=== PATIENT | female | born 1945 | race Caucasian/White ===

== ENCOUNTER 2017-10-04 07:25 | Inpatient (IN) ==
--- NOTE | 2017-10-04 08:02 | Emergency Department Note ---
Disposition Clinical Impression: Symptomatic bradycardia, Generalized weakness, ESRD (end stage renal disease) CHF (congestive heart failure) Qualifiers: Heart failure type: unspecified Heart failure chronicity: unspecified Qualified Code(s): I50.9 - Heart failure, unspecified Disposition: Admitted As Inpatient Referrals: Aurelio Fong DO [Primary Care Provider] - Forms: ED Satisfaction Letter Time of Disposition: 10:50 General Adult HPI - General Chief complaint: ED Weakness Stated complaint: Low B/P,Low HR Time Seen by Provider: 10/04/17 07:30 Source: patient, family Mode of arrival: wheelchair Limitations: no limitations Nursing Notes Reviewed: Yes Vital Signs Reviewed: Yes - History of Present Illness HPI Narrative: Alert and oriented nontoxic-appearing 71-year-old female is sent from dialysis for evaluation of hypotension and bradycardia. According to the patient and her family members, the patient's blood pressure was 90/52 and her heart rate was found to be 32 prior to being dialyzed. Dialysis was not performed, and the patient was sent to the emergency department. Her only complaint at the time of her arrival is that of generalized weakness that has worsened over the past several days. She denies any associated fever, chills, nausea, vomiting, chest pain, shortness of breath, abdominal pain, diarrhea, cough, or urinary symptoms. She denies being on any beta blockers, as she is allergic to them, or any current antihypertensive medication, as her blood pressure was "running low while taking those medications". She did have a recent discovery of a clot in her left arm dialysis shunt. She states that she was taken off Plavix sometime ago however after the discovery of the clot in her shunt, she was started on Xarelto. She states she is only taken 2 doses of Xarelto thus far. 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 Denies: confusion, chest pain, cough, fever/chills, nausea/vomiting, shortness of breath - Related Data Home Medications Medication Instructions Recorded Confirmed Rivaroxaban [Xarelto] 20 mg PO DAILY 10/04/17 10/04/17 Allergies Allergy/AdvReac Type Severity Reaction Status Date / Time adhesive Allergy Rash Verified 10/04/17 08:42 Beta-Blockers Allergy Hallucinati Verified 10/04/17 08:42 (Beta-Adrenergic Bloc ng metoprolol [From Toprol XL] Allergy Hallucinati Verified 10/04/17 08:42 ng lisinopril AdvReac Intermediate Hallucinati Verified 10/04/17 08:42 ng acetaminophen [From Percocet] AdvReac Nausea Verified 10/04/17 08:42 Oxycodone [From Percocet] AdvReac Nausea Verified 10/04/17 08:42 tramadol AdvReac Vomiting Verified 10/04/17 08:42 All systems ED: reviewed and negative except as stated. Constitutional: Reports: as per HPI, weakness (Generalized). Denies: fever, chills, weight change Eyes: Denies: eye pain, eye discharge, vision change ENT ED: Denies: ear pain, throat pain, dental pain, hearing loss, epistaxis, congestion, dysphagia Cardiovascular: Reports: as per HPI, other (Hypotension, bradycardia). Denies: chest pain, palpitations, dyspnea on exertion, edema, syncope Respiratory: Denies: cough, dyspnea, wheezes, hemoptysis, stridor Gastrointestinal: Denies: abdominal pain, nausea, vomiting, diarrhea, constipation, hematemesis, melena, hematochezia Genitourinary: Denies: dysuria, frequency, hematuria, discharge Musculoskeletal: Denies: back pain, neck pain, arthralgia, myalgia Integumentary: Denies: rash, abrasion, lesions Neurological: Denies: headache, weakness, numbness, paresthesias, confusion, abnormal gait, vertigo Psychiatric: Denies: anxiety, depression, suicidal thoughts, homicidal thoughts , auditory hallucinations, visual hallucinations Endocrine: Denies: fatigue Hematological/Lymphatic: Denies: easy bleeding, easy bruising Allergic/Immunologic: Denies: facial swelling, urticaria Past Medical History - Past Medical History Attestation: Yes The following information was validated with the patient. Source: patient, obtained from family, nursing notes reviewed Medical history: Reports: CVA, diabetes, dialysis, hyperlipidemia, hypertension , renal disease Surgical history: Reports: cholecystectomy Psychiatric history: Reports: no psych history DELI DEPARTMENT MANAGER history: Reports: no DELI DEPARTMENT MANAGER history - Social History Smoking Status: Never smoker Smokeless Tobacco Status: No Alcohol use: Reports: none Drug use: Reports: none Physical Exam - General Limitations: no limitations General appearance: alert, in no apparent distress - Head Head exam: atraumatic, normocephalic, normal inspection - Eye Eye exam: Present: normal appearance, PERRL, EOMI. Absent: nystagmus - ENT ENT exam: mucous membranes moist - Neck Neck exam: Present: normal inspection, full ROM, trachea midline - Chest Chest inspection: Present: normal inspection, symmetric chest wall rise - Respiratory Respiratory exam: Present: normal lung sounds bilaterally. Absent: respiratory distress, wheezes, stridor, accessory muscle use, prolonged expiratory phase - Cardiovascular Cardiovascular exam: Present: normal rhythm, bradycardia, normal heart sounds - Abdominal Exam Abdominal exam: Present: soft, Non-Tender, normal bowel sounds. Absent: mass - Extremities Exam Extremities exam: Present: normal inspection, full ROM. Absent: tenderness, pedal edema - Neurological Exam Neurological exam: Present: alert, oriented X3 - Psychiatric Psychiatric exam: Present: normal affect, normal mood - Skin Skin exam: Present: warm, dry, intact, normal color. Absent: rash Course Course Narrative: 1000: I spoke with Dr. Mendoza, wind farm support specialist fashion artist. Dr. Mendoza recommends admission to the hospital service with cardiology consultation for further intervention/evaluation. I discussed this plan with Dr. Fuller. Dr. Fuller has had a [id number] evaluation with the patient and agrees with this plan. 1050: I spoke with Dr. Andrade, hospitalist on-call who has accepted the patient for permission to the hospital service for further evaluation and treatment. Dr. Andrade does recommend a 500 mL bolus of IV fluid for the patient's labile blood pressure. Vital Signs Temperature 98.2 F 10/04/17 07:58 Pulse Rate 44 10/04/17 07:58 Respiratory Rate 18 10/04/17 07:58 Blood Pressure 99/63 10/04/17 07:58 O2 Sat by Pulse Oximetry 90 10/04/17 07:58 Temperature 98.2 F 10/04/17 07:58 Pulse Rate 42 10/04/17 10:33 Respiratory Rate 18 10/04/17 10:33 Blood Pressure 92/54 10/04/17 10:33 O2 Sat by Pulse Oximetry 92 10/04/17 10:33 Oxygen Delivery Oxygen Delivery Nasal Cannula Medical Decision Making - Medical Records Medical records reviewed: Yes I reviewed the patient's medical records. - Lab Data Lab results reviewed: Yes I reviewed the patient's lab results. Result diagrams: 10/04/17 08:11 10/04/17 08:11 Lab Results 10/04/17 10/04/17 10/04/17 Range/Units 08:11 08:11 08:11 WBC 9.0 (4.3-11.1) K/mcL RBC 3.61 L (3.82-4.97) M/mcL Hgb 10.6 L (11.5-15.4) g/dL Hct 34.7 L (35.3-44.9) % MCV 96.1 (83.0-100.0) fL MCH 29.4 (28.0-33.3) pg MCHC 30.5 L (31.6-35.5) g/dL RDW 17.4 H (11.5-14.5) % Plt Count 274 (140-400) K/mcL MPV 10.7 (9.4-12.4) fL Immature Gran % 0.4 (0-4) % Seg Neutrophils % 72.7 % Lymphocytes % 19.2 % Monocytes % 6.1 % Eosinophils % 1.0 % Basophils % 0.6 % Neutrophils # 6.5 (1.6-8.9) K/mcL Lymphocytes # 1.7 (0.6-4.6) K/mcL Monocytes # 0.6 (0.0-1.3) K/mcL Eosinophils # 0.1 (0.0-0.6) K/mcL Basophils # 0.1 (0.0-0.2) K/mcL PT 18.2 H D (9.4-12.1) Seconds INR 1.7 D Sodium 136 (136-145) mEq/L Potassium 4.8 (3.5-5.1) mEq/L Chloride 92 L (98-107) mEq/L Carbon Dioxide 29 (23-29) mEq/L BUN 43 H (8-23) mg/dL Creatinine 7.47 H (0.60-1.20) mg/dL Est GFR ( Amer) 7 L (> 60) Est GFR (Non-Af Amer) 5 L (> 60) BUN/Creatinine Ratio 6 (6-26) Glucose 190 H (70-105) mg/dL Calculated Osmolality 298 (280-300) Lactic Acid (0.5-2.2) mmol/L Calcium 9.5 (8.6-10.3) mg/dL Venous Ioniz Calcium (1.15-1.35) mmol/L Phosphorus 7.3 H (2.7-4.5) mg/dL Magnesium 2.2 (1.6-2.6) mg/dL Total Bilirubin 0.5 (0.3-1.0) mg/dL AST 9 L (13-39) Units/L ALT < 3 L (7-52) Units/L Alkaline Phosphatase 120 H (34-104) Units/L Troponin I 0.14 H* (< 0.04) ng/mL B-Natriuretic Peptide (Less than 100) pg/mL Serum Total Protein 7.4 (6.4-8.9) g/dL Albumin 3.6 (3.5-5.7) g/dL Globulin 3.8 H (2.4-3.5) g/dL Albumin/Globulin Ratio 0.9 L (1.1-2.2) 10/04/17 10/04/17 10/04/17 Range/Units 08:11 08:11 08:20 WBC (4.3-11.1) K/mcL RBC (3.82-4.97) M/mcL Hgb (11.5-15.4) g/dL Hct (35.3-44.9) % MCV (83.0-100.0) fL MCH (28.0-33.3) pg MCHC (31.6-35.5) g/dL RDW (11.5-14.5) % Plt Count (140-400) K/mcL MPV (9.4-12.4) fL Immature Gran % (0-4) % Seg Neutrophils % % Lymphocytes % % Monocytes % % Eosinophils % % Basophils % % Neutrophils # (1.6-8.9) K/mcL Lymphocytes # (0.6-4.6) K/mcL Monocytes # (0.0-1.3) K/mcL Eosinophils # (0.0-0.6) K/mcL Basophils # (0.0-0.2) K/mcL PT (9.4-12.1) Seconds INR Sodium (136-145) mEq/L Potassium (3.5-5.1) mEq/L Chloride (98-107) mEq/L Carbon Dioxide (23-29) mEq/L BUN (8-23) mg/dL Creatinine (0.60-1.20) mg/dL Est GFR ( Amer) (> 60) Est GFR (Non-Af Amer) (> 60) BUN/Creatinine Ratio (6-26) Glucose (70-105) mg/dL Calculated Osmolality (280-300) Lactic Acid 2.2 (0.5-2.2) mmol/L Calcium (8.6-10.3) mg/dL Venous Ioniz Calcium 1.02 L (1.15-1.35) mmol/L Phosphorus (2.7-4.5) mg/dL Magnesium (1.6-2.6) mg/dL Total Bilirubin (0.3-1.0) mg/dL AST (13-39) Units/L ALT (7-52) Units/L Alkaline Phosphatase (34-104) Units/L Troponin I (< 0.04) ng/mL B-Natriuretic Peptide 4069 H (Less than 100) pg/mL Serum Total Protein (6.4-8.9) g/dL Albumin (3.5-5.7) g/dL Globulin (2.4-3.5) g/dL Albumin/Globulin Ratio (1.1-2.2) - Radiology Data Radiology results reviewed: Yes I reviewed the patient's radiology results. - EKG Data EKG #1 EKG attestation: Yes I reviewed and interpreted this EKG. EKG results narrative: eKG shows sinus bradycardia with a 1st degree AV block and with left bundle branch block at a rate of 40 bpm. PA interval 279, QRS duration 142, QT/QTc interval 482/414.
[2017-10-04] MEDS ORDERED: *HR* Atropine Sulfate 1 MG/10 ML SYRINGE IVP STA (08:17)
[2017-10-04] MEDS ORDERED: 0.9 % Sodium Chloride 1,000 ML IVC ONE (08:17)
[2017-10-04] MEDS ORDERED: 0.9 % Sodium Chloride 1,000 ML ONE (08:19)
[2017-10-04] MEDS ORDERED: *HR* Atropine Sulfate 1 MG/10 ML SYRINGE ONE (08:19)
[2017-10-04 08:20] LABS: Basophils # 0.1 K/mcL (0.0-0.2); Basophils % 0.6 %; Eosinophils # 0.1 K/mcL (0.0-0.6); Hematocrit 34.7 % (35.3-44.9); Hemoglobin 10.6 g/dL (11.5-15.4); Immature Granulocytes % 0.4 % (0-4); Lymphocytes # 1.7 K/mcL (0.6-4.6); Lymphocytes % 19.2 %; Mean Corpuscular HGB Conc 30.5 g/dL (31.6-35.5); Mean Corpuscular Hemoglobin 29.4 pg (28.0-33.3); Mean Corpuscular Volume 96.1 fL (83.0-100.0); Mean Platelet Volume 10.7 fL (9.4-12.4); Monocytes # 0.6 K/mcL (0.0-1.3); Monocytes % 6.1 %; Neutrophils # 6.5 K/mcL (1.6-8.9); Platelet Count 274 K/mcL (140-400); Red Blood Count 3.61 M/mcL (3.82-4.97); Red Cell Distribution Width 17.4 % (11.5-14.5); Segmented Neutrophils % 72.7 %
[2017-10-04 08:24] LABS: VBG Ionized Calcium 1.02 mmol/L (1.15-1.35)
[2017-10-04 08:25] LABS: INR 1.7; Prothrombin Time 18.2 Seconds (9.4-12.1)
--- NOTE | 2017-10-04 08:39 | Emergency Department Note ---
Disposition Clinical Impression: Symptomatic bradycardia Disposition: Still a Patient Referrals: Aurelio Fong DO [Primary Care Provider] - Forms: ED Satisfaction Letter General Adult HPI - General Chief complaint: ED Weakness Stated complaint: Low B/P,Low HR Time Seen by Provider: 10/04/17 07:30 Source: patient, family Mode of arrival: wheelchair Limitations: no limitations - History of Present Illness Pain Scale: 0 Associated symptoms: Reports: weakness (Generalized). Denies: confusion, chest pain, cough, fever/chills, nausea/vomiting, shortness of breath - Related Data Home Medications Medication Instructions Recorded Confirmed Cinacalcet HCl [Sensipar] 60 mg PO DAILY 01/31/15 02/10/16 CloNIDine HCl 0.1 mg PO HS 01/31/15 02/10/16 Rosuvastatin [Crestor] 40 mg PO HS 01/31/15 02/10/16 Amlodipine [Norvasc] 5 mg PO DAILY 05/17/15 02/10/16 Clopidogrel [Plavix] 75 mg PO DAILY #0 09/26/15 02/10/16 Acetaminophen [Tylenol] 325 mg PO Q6HR PRN 01/03/16 02/10/16 Insulin Glargine [Lantus] 15 unit SQ HS 01/03/16 02/10/16 Ondansetron ODT [Zofran ODT] 4 mg SL Q12HR PRN 01/03/16 02/10/16 Previous Rx's Medication Instructions Recorded HYDROcodone/Acet 5/325 mg [[place] 1 tab PO Q4H PRN #30 tab 01/05/16 5-325 mg] Allergies Allergy/AdvReac Type Severity Reaction Status Date / Time adhesive Allergy Rash Verified 02/10/16 07:37 Beta-Blockers Allergy Hallucinati Verified 02/10/16 07:37 (Beta-Adrenergic Bloc ng metoprolol [From Toprol XL] Allergy Hallucinati Verified 02/10/16 07:37 ng lisinopril AdvReac Intermediate Hallucinati Verified 02/10/16 07:37 ng acetaminophen [From Percocet] AdvReac Nausea Verified 02/10/16 07:37 Oxycodone [From Percocet] AdvReac Nausea Verified 02/10/16 07:37 tramadol AdvReac Vomiting Verified 01/03/16 11:33 Constitutional: Reports: as per HPI, weakness (Generalized). Denies: fever, chills, weight change Eyes: Denies: eye pain, eye discharge, vision change ENT ED: Denies: ear pain, throat pain, dental pain, hearing loss, epistaxis, congestion, dysphagia Cardiovascular: Reports: as per HPI, other (Hypotension, bradycardia). Denies: chest pain, palpitations, dyspnea on exertion, edema, syncope Respiratory: Denies: cough, dyspnea, wheezes, hemoptysis, stridor Gastrointestinal: Denies: abdominal pain, nausea, vomiting, diarrhea, constipation, hematemesis, melena, hematochezia Genitourinary: Denies: dysuria, frequency, hematuria, discharge Musculoskeletal: Denies: back pain, neck pain, arthralgia, myalgia Integumentary: Denies: rash, abrasion, lesions Neurological: Denies: headache, weakness, numbness, paresthesias, confusion, abnormal gait, vertigo Psychiatric: Denies: anxiety, depression, suicidal thoughts, homicidal thoughts , auditory hallucinations, visual hallucinations Endocrine: Denies: fatigue Hematological/Lymphatic: Denies: easy bleeding, easy bruising Allergic/Immunologic: Denies: facial swelling, urticaria Past Medical History - Past Medical History Medical history: Reports: CVA, diabetes, dialysis, hyperlipidemia, hypertension , renal disease Surgical history: Reports: cholecystectomy Psychiatric history: Reports: no psych history SHOPPING CENTRE MANAGER history: Reports: no SHOPPING CENTRE MANAGER history - Social History Smoking Status: Never smoker Smokeless Tobacco Status: No Alcohol use: Reports: none Drug use: Reports: none Physical Exam - General Limitations: no limitations General appearance: alert, in no apparent distress Course - Reevaluation(s) Reevaluation #1: Attestation note I examined this patient and my medical decision-making was reviewed with the emergency medicine resident. I agree with the documented findings, disposition and treatment plan as described except to the extent set forth below. Patient seen with nurse practitioner Wes Foreman, Please see a copy of his note for details of the H&P, ED evaluation, management and disposition. I have independently evaluated the patient and confirmed appropriate portions of the history and physical exam. Briefly: 71-year-old female end-stage renal disease dialysis dependent had her dialysis on for today Saturday was sleepy and they noticed she had low blood pressure systolic in the low 90s and heart rate into the mid 30s. Family but says that her heart rates been low over the past several weeks. Other prior EKG shows a heart rate was 89. She 41 here pacer pads in place. Patient will get screening labs chest x-ray cardiology consultation and admission. Patient says she is allergic to beta blockers. Providing 45 minutes critical care service for this patient. Admission disposition pending Time: 08:38 Vital Signs Temperature 98.2 F 10/04/17 07:58 Pulse Rate 44 10/04/17 07:58 Respiratory Rate 18 10/04/17 07:58 Blood Pressure 99/63 10/04/17 07:58 O2 Sat by Pulse Oximetry 90 10/04/17 07:58 Temperature 98.2 F 10/04/17 07:58 Pulse Rate 45 10/04/17 08:30 Respiratory Rate 18 10/04/17 08:30 Blood Pressure 99/56 10/04/17 08:30 O2 Sat by Pulse Oximetry 93 10/04/17 08:30 Oxygen Delivery Oxygen Delivery Nasal Cannula Medical Decision Making - Lab Data Result diagrams: 10/04/17 08:11 Lab Results 10/04/17 10/04/17 10/04/17 Range/Units 08:11 08:11 08:11 WBC 9.0 (4.3-11.1) K/mcL RBC 3.61 L (3.82-4.97) M/mcL Hgb 10.6 L (11.5-15.4) g/dL Hct 34.7 L (35.3-44.9) % MCV 96.1 (83.0-100.0) fL MCH 29.4 (28.0-33.3) pg MCHC 30.5 L (31.6-35.5) g/dL RDW 17.4 H (11.5-14.5) % Plt Count 274 (140-400) K/mcL MPV 10.7 (9.4-12.4) fL Immature Gran % 0.4 (0-4) % Seg Neutrophils % 72.7 % Lymphocytes % 19.2 % Monocytes % 6.1 % Eosinophils % 1.0 % Basophils % 0.6 % Neutrophils # 6.5 (1.6-8.9) K/mcL Lymphocytes # 1.7 (0.6-4.6) K/mcL Monocytes # 0.6 (0.0-1.3) K/mcL Eosinophils # 0.1 (0.0-0.6) K/mcL Basophils # 0.1 (0.0-0.2) K/mcL PT 18.2 H D (9.4-12.1) Seconds INR 1.7 D Lactic Acid 2.2 (0.5-2.2) mmol/L Venous Ioniz Calcium (1.15-1.35) mmol/L 10/04/17 Range/Units 08:20 WBC (4.3-11.1) K/mcL RBC (3.82-4.97) M/mcL Hgb (11.5-15.4) g/dL Hct (35.3-44.9) % MCV (83.0-100.0) fL MCH (28.0-33.3) pg MCHC (31.6-35.5) g/dL RDW (11.5-14.5) % Plt Count (140-400) K/mcL MPV (9.4-12.4) fL Immature Gran % (0-4) % Seg Neutrophils % % Lymphocytes % % Monocytes % % Eosinophils % % Basophils % % Neutrophils # (1.6-8.9) K/mcL Lymphocytes # (0.6-4.6) K/mcL Monocytes # (0.0-1.3) K/mcL Eosinophils # (0.0-0.6) K/mcL Basophils # (0.0-0.2) K/mcL PT (9.4-12.1) Seconds INR Lactic Acid (0.5-2.2) mmol/L Venous Ioniz Calcium 1.02 L (1.15-1.35) mmol/L
[2017-10-04 08:47] LABS: Alanine Aminotransferase < 3 Units/L (7-52); Albumin 3.6 g/dL (3.5-5.7); Albumin/Globulin Ratio 0.9 (1.1-2.2); Alkaline Phosphatase 120 Units/L (34-104); Aspartate Amino Transferase 9 Units/L (13-39); BUN/Creatinine Ratio 6 (6-26); Bilirubin,Total 0.5 mg/dL (0.3-1.0); Blood Urea Nitrogen 43 mg/dL (8-23); Calcium 9.5 mg/dL (8.6-10.3); Carbon Dioxide 29 mEq/L (23-29); Chloride 92 mEq/L (98-107); Globulin 3.8 g/dL (2.4-3.5); Glucose 190 mg/dL (70-105); Magnesium 2.2 mg/dL (1.6-2.6); Osmolality,Calculated 298 (280-300); Phosphorous 7.3 mg/dL (2.7-4.5); Potassium 4.8 mEq/L (3.5-5.1); Sodium 136 mEq/L (136-145); Total Protein 7.4 g/dL (6.4-8.9); eGFR For African Americans 7 (> 60); eGFR For Non-African Americans 5 (> 60)
[2017-10-04 09:24] LABS: Troponin I 0.14 ng/mL (< 0.04)
[2017-10-04] MEDS ORDERED: Aspirin 81 MG TAB.CHEW PO ONE (09:40)
[2017-10-04] MEDS ORDERED: 0.9 % Sodium Chloride 500 ML IVC ONE (10:51)
--- NOTE | 2017-10-04 11:34 | Internal Med History&Physical ---
Date of Encounter: 10/04/17 Time of Encounter: 11:34 Internal Medicine - H&P: HPI Admitted From: Home Plans for Post Hospital Care: Home History of present illness: Ms. Aguilar is a 71-year-old female with history of ESRD on maintenance dialysis Saturday, recent DVT on left upper extremity on Xarelto, diabetes mellitus, hypertension, stroke with slight residual lower extremity weakness on right side is sent from dialysis for evaluation of hypotension and bradycardia are creatinine 30s and dialysis center. The lacertus was not performed and sent to ER immediately. Patient has been feeling generalized weakness and fatigue, dizzy spells, tired, running low blood pressure and last few weeks and her provider has been cutting down the blood pressure medicine. On arrival to ER her blood pressure was in 90s by 50s and heart rate in 30s and hypoxic SPO2 and lower 90s therefore oxygen by nasal cannula started. one dose of Atropin was given with raised heart rate in 50s but again came down to 40s. Troponin slight elevated but no acute ST-T changes in the EKG. ER physician talked to on-call head of integrated media who thinks it is more sinus bradycardia with symptoms and advised to get admitted under hospitalist service with consultation. Patient denies fever, chills, nausea, vomiting, chest pain, headache, abdominal pain, urinary or bowel complaint. Patient does not make urine while being dialyzed. . Past Med Surg Social Fam HX - Past Medical History Medical history: CVA, diabetes, dialysis, hyperlipidemia, hypertension, renal disease Psychiatric history: no psych history - Past Surgical History Surgical History: cholecystectomy - Social History Smoking Status: Never smoker Smokeless Tobacco Status: No Alcohol use: none Drug use: none - Family History Mother Living Status: Hx Family Cardiac Disorders: Yes Internal Medicine - H&P: Meds Rivaroxaban [Xarelto] 20 mg PO DAILY 10/04/17 [History] 3 Allergy/AdvReac Type Severity Reaction Status Date / Time adhesive Allergy Rash Verified 10/04/17 08:42 Beta-Blockers Allergy Hallucinati Verified 10/04/17 08:42 (Beta-Adrenergic Bloc ng metoprolol [From Toprol XL] Allergy Hallucinati Verified 10/04/17 08:42 ng lisinopril AdvReac Intermediate Hallucinati Verified 10/04/17 08:42 ng acetaminophen [From Percocet] AdvReac Nausea Verified 10/04/17 08:42 Oxycodone [From Percocet] AdvReac Nausea Verified 10/04/17 08:42 tramadol AdvReac Vomiting Verified 10/04/17 08:42 All Systems PM: A 10-system review of systems was performed and is negative for pertinent findings except as documented above in the HPI. - Constitutional Vitals: Temp Pulse Resp BP Pulse Ox 98.2 F 45 18 93/57 92 10/04/17 07:58 10/04/17 10:55 10/04/17 10:55 10/04/17 10:55 10/04/17 10:55 Exam: General appearance: No acute distress, A&O X 3, oxygen by nasal cannula 2 L, family at bedside. Head exam: Atraumatic Eye exam: EOMI, PERRLA ENT exam: Moist oral mucosa Neck nontender, supple Respiratory exam: Bibasilar crepitation more on right side Cardiovascular exam: Sinus bradycardia , no systolic murmur Abdominal exam: Soft, nontender, nondistended, positive bowel sounds Extremities exam: No calf tenderness, no pedal edema Present: Left arm shunt block Skin-no rash, warm, dry, intact Neurological exam: Alert, awake, oriented 3, CN II-XII intact, no focal deficits. No facial droop. Normal speech. Internal Med - H&P Results - Labs CBC & Chem 7: 10/04/17 08:11 10/04/17 08:11 - Assessment and plan (1) Symptomatic bradycardia Current Visit: Yes Status: Acute Assessment and plan: unknown etiology. normal electrolyte. Telemetry. Atropine 1 given in the ER visit: Minimal effect and heart rate. Low blood pressure but stable. Grader Meat was consulted in the ER who advised to admit under hospitalist service and happy to see the patient as a medical cost consultant. Patient may require pacemaker. Talked to the family about the plan (2) ESRD (end stage renal disease) Current Visit: Yes Status: Chronic Assessment and plan: Maintenance dialysis Saturday. Patient did not get dialysis today. I talked to her legal billing clerk Dr. Castelan See and discuss the need of dialysis today. She advised to monitor closely and probably plan for dialysis tomorrow until new change in her clinical status. Renal diet (3) DVT (deep venous thrombosis) Current Visit: Yes Status: Chronic Assessment and plan: Had recent DVT last week and left upper extremity. Continue xarlto. No active bleeding. Qualifiers: Qualified Code(s): I82.402 - Acute embolism and thrombosis of unspecified deep veins of left lower extremity (4) Diabetes Current Visit: No Status: Chronic Assessment and plan: Accu-Chek, insulin sliding scale low. Diabetic diet Qualifiers: Diabetes mellitus type: type 2 Diabetes mellitus long-term insulin use: with longwall foreman use Diabetes mellitus complication status: with kidney complications Diabetes mellitus complication detail: with chronic kidney disease Chronic kidney disease stage: on chronic dialysis Qualified Code(s) : E11.22 - Type 2 diabetes mellitus with diabetic chronic kidney disease; N18.6 - End stage renal disease; N18.6 - End stage renal disease; N18.6 - End stage renal disease; N18.6 - End stage renal disease; Z79.4 - residential (current) use of insulin; Z79.4 - petroleum terminal plant operator (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 Is stable. Plavix was recently stopped as xarelto was started recently - Time Spent With Patient Total time spent is greater than 50% in coordination of care (as documented) at patient's floor/unit and/or counseling patient: 25 - 35 minutes
[2017-10-04] MEDS ORDERED: Naloxone 0.4 MG/ML INJ IVP PRN (11:35)
[2017-10-04 11:55] LABS: Thyroid Stimulating Hormone 3.072 mcIU/mL (0.340-5.600)
[2017-10-04] MEDS ORDERED: Dextrose Gel 15 GM/37.5 ML TUBE PO PRN ×2 (12:26)
[2017-10-04] MEDS ORDERED: D5% in Water 1,000 ML IVC PRN (12:26)
[2017-10-04] MEDS ORDERED: *HR* Dextrose 50 % in Water (Syg) 50 ML SYRINGE IVP PRN (12:26)
--- NOTE | 2017-10-04 14:32 | Cardiology Consult Note ---
Date of Encounter: 10/04/17 Time of Encounter: 14:23 Assessment and Plan (1) Symptomatic bradycardia Current Visit: Yes Status: Acute Syptomatic bradycardia. EKG showed sinus bradycardia. HR improved with atropine in ED. Currently mid 40's. Symptoms improved and blood pressure is stable currently. Monitor on telemetry. External pacer pads on patient if needed. If she becomes hemodynamically unstable she may require transvenous temporary pacemaker placement. Check TTE. Last TTE 09/26/15- LVEF 55%.Normal left ventricular size and systolic function.There is evidence of moderate diastolic dysfunction of the left ventricle.Mildly enlarged left atrial size.Dilated RV with normal function.Normal right atrial size. Mild mitral regurgitaiton.Trivial posterior pericardial effusion.Pleural effusion. Stress test 09/2015- negative for ischemia, EF 48%. TSH is normal. Avoid AV kelton blockers. Continue to monitor telemetry (2) CKD (chronic kidney disease) stage 5, GFR less than 15 ml/min Current Visit: No Status: Chronic ESRD on dialysis. Patient missed dialysis today due to bradycardia and hypotension. CXR shows pulmonary vascular congestion. BNP noted to be elevated. Fluid management per nephrology. TTE pending. (3) Elevated troponin Current Visit: No Status: Acute Mild troponin elevation at 0.14, 0.20. Likely demand ischemia in the setting of bradycardia, hypotension, and ESRD. She denies chest pain TTE pending. Discussion w patient/family: The assessment and plan as outlined above was discussed with the patient and/or family members who expressed understanding and agreement. All questions were answered. Thank you for involving us in the care of your patient. Please call with any questions. History of Present Illness Consult date: 10/04/17 Requesting physician: Moustapha Fuller Consult reason: Bradycardia Chief complaint: weakness, dizziness, falls, low blood pressure History of present illness: Ms. 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 She was sent to the ED from dialysis when she was found to have bradycardia with HR in the 30's and hypotension. In the ED HR found to be 30-40. She was given atropine 1 mg with HR increase to the 50's. She c/o weakness, dizziness, and falls over the past two weeks. She describes two falls that occurred when standing up from her recliner. Her family states that her blood pressure as low both times. She was found to have low blood pressure recently and all of her antihypertensive medications were discontinued. She denies chest pain or SOB. Denies orthopnea, PND, or edema. C/o nausea. Past Med Surg Social Fam HX - Past Medical History Attestation: Yes The following information was validated with the patient. Medical history: CVA, DVT, diabetes, dialysis, hyperlipidemia, hypertension, renal disease, other Psychiatric history: no psych history - Past Surgical History Surgical History: cholecystectomy - Social History Smoking Status: Never smoker Smokeless Tobacco Status: No Alcohol use: none Drug use: none - Family History Mother Living Status: Hx Family Cardiac Disorders: Yes Medications and Allergies Rivaroxaban [Xarelto] 20 mg PO DAILY 10/04/17 [History] 3 Allergy/AdvReac Type Severity Reaction Status Date / Time adhesive Allergy Rash Verified 10/04/17 08:42 Beta-Blockers Allergy Hallucinati Verified 10/04/17 08:42 (Beta-Adrenergic Bloc ng metoprolol [From Toprol XL] Allergy Hallucinati Verified 10/04/17 08:42 ng lisinopril AdvReac Intermediate Hallucinati Verified 10/04/17 08:42 ng acetaminophen [From Percocet] AdvReac Nausea Verified 10/04/17 08:42 Oxycodone [From Percocet] AdvReac Nausea Verified 10/04/17 08:42 tramadol AdvReac Vomiting Verified 10/04/17 08:42 All Systems Review: The remainder of the systems were reviewed and are negative Physical Examination Vital Signs, Last 4 Hours Temp Pulse Resp BP Pulse Ox 10/04/17 14:01 90 10/04/17 13:31 98.3 F 43 18 95/51 92 10/04/17 12:50 18 97/50 10/04/17 11:59 42 18 96/55 94 General: Conversant, No Apparent Distress HEENT: Atraumatic, Normocephaly, Mucus Membranes Moist Neck: No JVD, Normal carotid pulses Cardiac: Reg Rate and Rhythm, Normal S1 and S2, No Murmur Lungs: Normal Breath Sounds, No Wheeze, Rales, Rhonchi Neuro: Alert and responsive Abdomen: Soft, Non-Tender Skin: No rashes noted on visualized skin, Other (brownish discoloration of skin (ESRD)) Musculoskeletal: No Chest Wall Tenderness Extremities: No Clubbing, No Cyanosis, No Edema, Normal Pulses Results 10/04/17 08:11 10/04/17 08:11 Chest X-Ray 10/04/17 07:47 IMPRESSION: New mild pulmonary vascular congestion. New right central venous catheter with the tip in the right atrium. D/ / 10/04/2017 11:07:00 Myles Sarmiento MD / cheryl Interpreting Provider: Myles Sarmiento MD - Imaging and Cardiology Chest Xray: report reviewed Echo: pending Consult Discharge Plan - Plan Referrals: Aurelio Fong DO [Primary Care Provider] -
[2017-10-04] MEDS: Ondansetron 4 MG/2 ML VIAL IVP PRN ×2 (14:39→23:31)
--- NOTE | 2017-10-04 16:59 | Nephrology Consult Note ---
Date of Encounter: 10/04/17 Time of Encounter: 16:45 Assessment and Plan (1) ESRD (end stage renal disease) Current Visit: Yes Status: Chronic With her severe bradycardia and relative hypotension, she is not a safe candidate for hemodialysis. She cannot wait for further HD d/t her progressive dyspnea, with acute hypoxic respiratory distress. The 1 view CXR was reviewed with Pulm edema. Her O2 requirements have progressively declined this afternoon per the floor RN. Therefore, I recommend CVVHDF for a more gentle dialysis. I counseled the pt on the pros/cons and potential risk of exacerbating her Bradycardia, which includes even . The verbalized that she wants to be a DNR. The pt's sister and RN were present. She will need transferred to the ICU for Bee. Bradycardia: as per Cardiology, but I am concerned that she may not even tolerate Bee and may need intervention such as a dopamine drip. Should avoid , if possible, further IVF d/t her pulmonary edema. I'll arrange for a very gentle UF with CVVHDF in hopes of improving her volume status. Currently she was too orthopneic to lay flat, so ideally her volume status can improve with UF, if she tolerates it. AV Access: she currently has a Right sided Permacath, which will work with Bee. She has a left forearm AVG which apparently recently thrombosed. Would recommend renal dosing of Xarelto or even better yet to change to Eliquis for renal dosing such as 5mg po bid, if indicated. Thank you for consulting the [facility] group. Will follow closely with you. CCT about 45 min between chart review, phone calls with RN and hospitalist, family discussion with the sister and documentation plus ordering CVVHDF and discussing Bee orders with the ICU RNs. (2) Acute respiratory failure with hypoxia Current Visit: Yes Status: Acute (3) Pulmonary edema Current Visit: Yes Status: Acute Qualifiers: Chronicity: acute Qualified Code(s): J81.0 - Acute pulmonary edema (4) Hypotension Current Visit: Yes Status: Acute Qualifiers: Hypotension type: unspecified hypotension type Qualified Code(s): I95.9 - Hypotension, unspecified (5) Symptomatic bradycardia Current Visit: Yes Status: Acute History of Present Illness - Reason for Consult Consult date: 10/04/17 end stage renal disease Requesting physician: Bethany Anne - Chief Complaint ESRD but bradycardic and hypotensive with severe dyspnea/Pulmonary Edema - History of Present Illness 71 y/o WF with a pmh of ESRD on HD M/W/F, HTN, DM and et al who presented from the [place], [place], area with bradycardia, hypotension and missed HD earlier today. Her primary laundry worker is Dr. Lion, and the pt typically dialyzes at [facility] in [place], [place]. This is the time that I'm meeting and evaluating her. The pt's sister was present in the room. Cardiology is following; and the pt received by atropine x1 and IVF in the ER. The last dialysis was Saturday. The pt affirmed that she typically does gain more fluid weight between HD treatments than she should. She was not able to elaborate on what her target ( dry) weight runs. The [facility] medical records are not immediately available to me. She reported feeling more and more short of breath this afternoon, when interviewed and evaluated on the 2NE unit. She was not actively receiving IVF. Before this admission, she reported that the Left UE AVG recently thrombosed and she had a Permacath placed. Xarelto was recently started, and the Pharm D paged me this afternoon to ask if Eliquis were a better option in the setting of ESRD, and that's when I was first alerted to the presence of this pt. The pt also reported feeling nauseated and has had vomitting recently. No blood was reported. The sister mentioned that the pt has frequent N/V for several years. The pt voiced strongly that she wants to be a DNR, and the sister affirmed this. Past Med Surg Social Fam HX - Past Medical History Medical history: CVA, DVT, diabetes, dialysis, hyperlipidemia, hypertension, renal disease, other Psychiatric history: no psych history - Past Surgical History Surgical History: cholecystectomy - Social History Smoking Status: Never smoker Smokeless Tobacco Status: No Alcohol use: none Drug use: none - Family History Mother Living Status: Hx Family Cardiac Disorders: Yes Medications and Allergies Rivaroxaban [Xarelto] 20 mg PO DAILY 10/04/17 [History] 3 Allergy/AdvReac Type Severity Reaction Status Date / Time adhesive Allergy Rash Verified 10/04/17 08:42 Beta-Blockers Allergy Hallucinati Verified 10/04/17 08:42 (Beta-Adrenergic Bloc ng metoprolol [From Toprol XL] Allergy Hallucinati Verified 10/04/17 08:42 ng lisinopril AdvReac Intermediate Hallucinati Verified 10/04/17 08:42 ng acetaminophen [From Percocet] AdvReac Nausea Verified 10/04/17 08:42 Oxycodone [From Percocet] AdvReac Nausea Verified 10/04/17 08:42 tramadol AdvReac Vomiting Verified 10/04/17 08:42 Review of Systems All Systems: reviewed and no additional remarkable complaints except as stated Exam - Vital Signs Vital signs: Initial Vital Signs Temp Pulse Resp BP Pulse Ox 98.2 F 44 18 99/63 90 10/04/17 07:58 10/04/17 07:58 10/04/17 07:58 10/04/17 07:58 10/04/17 07:58 Vital Signs - Last 8 Hours Temp Pulse Resp BP Pulse Ox 10/04/17 15:18 98.9 F 43 18 98/55 90 10/04/17 14:01 90 10/04/17 13:31 98.3 F 43 18 95/51 92 10/04/17 12:50 18 97/50 10/04/17 11:59 42 18 96/55 94 Intake and Output 10/04/17 10/04/17 10/04/17 07:59 15:59 23:59 Output Total 100 / 100 Balance -100 / 900 Output: Emesis 100 / 100 Other: Weight 74.4 kg Blood Glucose* 194 Patient Weight 10/04/17 23:59 Weight 74.4 kg - General Appearance General appearance: moderate distress, fatigue, frail, anxious EENT: mucous membranes dry Respiratory: wheezing, rales, course breath sounds Cardiology: edema (trace to 1+ pretibial pitting edema bilaterally) Additional Comments: bradycardic rate - Dialysis Access Additional Comments: Right sided Permacath with dressing C/D/I Gastrointestinal: normoactive bowel sounds, no tenderness, no guarding, no organomegaly Integumentary: warm and dry, ecchymotic Additional Comments: very kirkpatrick appearing skin Neurologic: no focal deficit, confused Additional Comments: She was slow in her replies during the interview and exam. She was able to slowly sit up and moved all four extremities. She voiced knowing where, who she is and the timing. Musculoskeletal: no erythema, no cyanosis Psychiatric: mood/affect appropriate, cooperative Results - Lab Results 10/04/17 08:11 10/04/17 08:11 Most recent lab results Calcium 9.5 mg/dL (8.6-10.3) 10/04/17 08:11 Phosphorus 7.3 mg/dL (2.7-4.5) H 10/04/17 08:11 Magnesium 2.2 mg/dL (1.6-2.6) 10/04/17 08:11 I reviewed the labs, med lists, vitals, imaging and progress notes. Consult Discharge Plan - Plan Referrals: Aurelio Fong DO [Primary Care Provider] -
[2017-10-04] MEDS ORDERED: *HR* Heparin 5,000 UNIT/ML VIAL IV PRN (17:06)
[2017-10-04] MEDS ORDERED: Calcium Gluconate 2,000 MG in 0.9 % Sodium Chloride 100 ML IVPB PRN (17:06)
[2017-10-04] MEDS ORDERED: 0.9 % Sodium Chloride 1,000 ML PRIME SCH (17:15)
[2017-10-04] MEDS ORDERED: Calcium Chloride 4,000 MG in 0.9 % Sodium Chloride 1,000 ML CRRT SCH (17:15)
--- NOTE | 2017-10-04 17:17 | Electrocardiograph Report ---
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
[2017-10-04] MEDS: PrismaSATE BGK 4/2.5 5,000 ML CRRT SCH ×2 (19:42)
[2017-10-04 20:10] LABS: Hepatitis B Surface Antigen Nonreactive (Nonreactive)
[2017-10-04 20:13] LABS: Hepatitis B Surface Antibody 9.78 mIU/mL
[2017-10-04] MEDS: Insulin LISPRO 300 UNITS/3 ML VIAL SQ SCH ×2 (20:54→23:21)
[2017-10-05] MEDS: PrismaSATE BGK 4/2.5 5,000 ML CRRT SCH ×10 (00:48→20:08)
[2017-10-05 01:20] LABS: Basophils # 0.1 K/mcL (0.0-0.2); Basophils % 0.5 %; Hematocrit 31.7 % (35.3-44.9); Hemoglobin 9.6 g/dL (11.5-15.4); Immature Granulocytes % 0.4 % (0-4); Lymphocytes # 0.9 K/mcL (0.6-4.6); Lymphocytes % 8.4 %; Mean Corpuscular HGB Conc 30.3 g/dL (31.6-35.5); Mean Corpuscular Hemoglobin 29.2 pg (28.0-33.3); Mean Corpuscular Volume 96.4 fL (83.0-100.0); Mean Platelet Volume 10.8 fL (9.4-12.4); Monocytes # 0.4 K/mcL (0.0-1.3); Monocytes % 3.8 %; Neutrophils # 9.2 K/mcL (1.6-8.9); Platelet Count 272 K/mcL (140-400); Red Blood Count 3.29 M/mcL (3.82-4.97); Red Cell Distribution Width 17.5 % (11.5-14.5); Segmented Neutrophils % 86.9 %
[2017-10-05 01:40] LABS: Calcium 9.4 mg/dL (8.6-10.3); Magnesium 2.2 mg/dL (1.6-2.6); Phosphorous 6.2 mg/dL (2.7-4.5); Potassium 5.2 mEq/L (3.5-5.1)
[2017-10-05] MEDS ORDERED: *HR* Atropine Sulfate 1 MG/10 ML SYRINGE ONE (01:59)
[2017-10-05 03:40] LABS: VBG Ionized Calcium 1.11 mmol/L (1.15-1.35)
[2017-10-05] MEDS: Insulin LISPRO 300 UNITS/3 ML VIAL SQ SCH ×4 (05:20→20:06)
[2017-10-05] MEDS: Ondansetron 4 MG/2 ML VIAL IVP PRN ×2 (05:20→12:18)
--- NOTE | 2017-10-05 08:26 | Pulmonology Consult Note ---
<Robby Cheek - Last Filed: 10/05/17 12:14> Date of Encounter: 10/05/17 Time of Encounter: 09:35 Assessment and Plan (1) Symptomatic bradycardia Current Visit: Yes Status: Acute Symptomatic bradycardia with heart rates dropping into the 30s Monitor has showed intermittent complete heart block despite first-degree AV block found on initial EKG Cardiology would like to insert a pacemaker, plan to do it Saturday We will insert central venous catheter, start dopamine Continuous cardiac monitoring with pulse ox monitoring (2) Hypotension Current Visit: Yes Status: Acute Hypotension in setting of diastolic CHF with a medical bradycardia The patient requires hemodialysis for fluid overload status and renal failure Access is limited to his right Qualifiers: Hypotension type: unspecified hypotension type Qualified Code(s): I95.9 - Hypotension, unspecified (3) Acute respiratory failure with hypoxia Current Visit: Yes Status: Acute Acute respiratory failure with hypoxia secondary to CHF and ESRD with fluid overload Currently oxygenating appropriately on High flow O2 We will continue to monitor, consider PAP if necessary (4) ESRD (end stage renal disease) Current Visit: Yes Status: Chronic ESRD on HD MWF Not stable for standard HD Nephrology on board to manage Bee Will likely require IR consult Saturday for AV Graft thrombectomy (5) Anemia Current Visit: No Status: Chronic 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 Stable Qualifiers: Anemia type: due to chronic kidney disease Chronic kidney disease stage: on chronic dialysis Qualified Code(s): N18.6 - End stage renal disease; D63.1 - Anemia in chronic kidney disease; D63.1 - Anemia in chronic kidney disease; Z99.2 - Dependence on renal dialysis; Z99.2 - Dependence on renal dialysis; Z99.2 - Dependence on renal dialysis; Z99.2 - Dependence on renal dialysis (6) Elevated troponin Current Visit: No Status: Acute Elevated troponin, likely secondary to demand ischemia in setting of CHF and ESRD with fluid overload EKG negative for ischemic changes Cardiology is on board continuous cardiac monitoring (7) DVT prophylaxis Current Visit: No Status: Acute Currently on eliquis History of Present Illness Consult date: 10/05/17 Requesting physician: Keren Smith Reason for consult: dyspnea, other (hypotension) Chief complaint: Symptomatic bradycardia History of present illness: Karina is a 71-year-old woman with history of end-stage renal disease on hemodialysis Saturday, recent DVT in left upper extremity on several toe, history of CVA, history of respiratory distress who presented to the ED from dialysis after an episode of symptomatic bradycardia that prevented dialysis completion. Patient admits that she has been feeling generally fatigued, dizzy, tired and has been running low blood pressure last few weeks. She has had to decrease her blood pressure medications as result of this. The patient has also been having increasing shortness of breath and respiratory distress especially over the past 24 hours. She admits to orthopnea. In the ED she was found to have heart rate in the 30s, and relatively low blood pressure making hemodialysis impossible to give. Additionally, the patient was found to have mild elevation in troponin which was not accompanied by any EKG changes. Cardiology was consulted from the ED, and nephrology was consulted while the patient was admitted to the floor. The nephrology team determine that it would be appropriate for this patient to be transferred to the ICU to initiate Bee as standard hemodialysis was not an option. Additionally, the patient's respiratory status was concerning enough to necessitate some form of dialysis, making Bee the best option. The patient apparently received 1 dose of atropine which was only mildly successful and quickly diminished. This morning, there was concern that the patient was developing continued bradycardia with worsened hypotension while on Bee. Cardiology recommended patient be started on dopamine pending pacemaker insertion, however there was no access. We were then consultative for insertion of central line and management of hypotension. Past Med Surg Social Fam HX - Past Medical History Medical history: CVA, DVT, diabetes, dialysis, hyperlipidemia, hypertension, renal disease, other Psychiatric history: no psych history - Past Surgical History Surgical History: cholecystectomy - Social History Smoking Status: Never smoker Smokeless Tobacco Status: No Alcohol use: none Drug use: none - Family History Mother Living Status: Hx Family Cardiac Disorders: Yes Medications and Allergies Rivaroxaban [Xarelto] 20 mg PO DAILY 10/04/17 [History] 3 Allergy/AdvReac Type Severity Reaction Status Date / Time adhesive Allergy Rash Verified 10/04/17 08:42 Beta-Blockers Allergy Hallucinati Verified 10/04/17 08:42 (Beta-Adrenergic Bloc ng metoprolol [From Toprol XL] Allergy Hallucinati Verified 10/04/17 08:42 ng lisinopril AdvReac Intermediate Hallucinati Verified 10/04/17 08:42 ng acetaminophen [From Percocet] AdvReac Nausea Verified 10/04/17 08:42 Oxycodone [From Percocet] AdvReac Nausea Verified 10/04/17 08:42 tramadol AdvReac Vomiting Verified 10/04/17 08:42 All Systems: The remainder of the systems were reviewed and are negative Review of Systems: Constitutional: Denies fevers, Admits to chills, generalized fatigue Head/Neck: Denies MANDUJANO, neck stiffness EENT: Denies vision changes/blurriness, rhinorrhea, congestion, sore throat CVS: Denies chest pain, palpitations, PND. Admits to WHITE, orthopnea, edema, Pulm: Denies SOB at present, cough, sputum, hemoptysis, wheezing GI: Denies abdominal pain, diarrhea, constipation, melena, hematemasis. Admit to nausea, vomiting, : Patient is typically anuric on HD Heme: Denies ease of bleeding or bruising MSK: Denies joint pain, limited ROM Skin: Denies rashes, ulcers, color changes Neuro: Denies MANDUJANO, paresthesias, focal deficits, ataxia Physical Examination Vital Signs: Vital Signs, Last 4 Hours Pulse Resp BP Pulse Ox 10/05/17 07:00 36 16 103/39 99 10/05/17 06:00 38 24 94/80 99 10/05/17 05:15 53 19 125/61 99 Gen: Vitals noted. No acute distress. AAOx3 but somnolent HEENT: PERRL/EOMI with mild yellowing, oropharynx clear, Normocephalic, atraumatic Neck: Supple. No adenopathy. Cardiac: RRR, no murmur, +S1/S2 Pulmonary: bibasilar crackles are heard Abdomen: soft, nontender, BS noted, no guarding MSK: ROM intact, no joint swelling noted Extremities: Trace BLE edema, nontender calf, no cyanosis or clubbing Neuro: moves all extremities, no focal deficits Psych: Appropriate mood and behavior Results - Laboratory Findings CBC and BMP: 10/05/17 00:46 10/05/17 00:46 PT/INR, D-dimer PT 18.2 Seconds (9.4-12.1) H D 10/04/17 08:11 Abnormal lab findings: Abnormal lab results RBC 3.29 M/mcL (3.82-4.97) L 10/05/17 00:46 Hgb 9.6 g/dL (11.5-15.4) L 10/05/17 00:46 Hct 31.7 % (35.3-44.9) L 10/05/17 00:46 MCHC 30.3 g/dL (31.6-35.5) L 10/05/17 00:46 RDW 17.5 % (11.5-14.5) H 10/05/17 00:46 Neutrophils # 9.2 K/mcL (1.6-8.9) H 10/05/17 00:46 PT 18.2 Seconds (9.4-12.1) H D 10/04/17 08:11 Potassium 5.2 mEq/L (3.5-5.1) H 10/05/17 00:46 BUN 39 mg/dL (8-23) H 10/05/17 00:46 Creatinine 6.15 mg/dL (0.60-1.20) H 10/05/17 00:46 Est GFR ( Amer) 8 (> 60) L 10/05/17 00:46 Est GFR (Non-Af Amer) 7 (> 60) L 10/05/17 00:46 Glucose 197 mg/dL (70-105) H 10/05/17 00:46 POC Glucose 149 mg/dL (70-99) H 10/05/17 05:15 Calculated Osmolality 301 (280-300) H 10/05/17 00:46 Venous Ioniz Calcium 1.11 mmol/L (1.15-1.35) L 10/05/17 03:32 Phosphorus 6.2 mg/dL (2.7-4.5) H 10/05/17 00:46 AST 9 Units/L (13-39) L 10/04/17 08:11 ALT < 3 Units/L (7-52) L 10/04/17 08:11 Alkaline Phosphatase 120 Units/L (34-104) H 10/04/17 08:11 Troponin I 0.42 ng/mL (< 0.04) H* 10/05/17 00:46 B-Natriuretic Peptide 2534 pg/mL (Less than 100) H 10/05/17 00:46 Globulin 3.8 g/dL (2.4-3.5) H 10/04/17 08:11 Albumin/Globulin Ratio 0.9 (1.1-2.2) L 10/04/17 08:11 - Clinical Findings Intake & Output: Intake & Output 10/04/17 10/05/17 10/05/17 23:59 07:59 15:59 Intake Total 0 / 0 0 / 0 Output Total 113 / 113 251 / 251 Balance -113 / -113 -251 / -251 Weight 73.6 kg Pulmonary Procedures - Central Line Placement Right IJ Consent obtained: written consent Time out performed: Yes Patient placed on monitor/pulse ox: Yes prep: mask, gown, gloves Central line prep: Chlorhexidine scrub, sterile drapes applied Local anesthesia used: Lidocaine 1% Amount of anesthesia used (mls): 5 Ultrasound used for placement: Yes Central line lumen inserted: triple Post procedure: sutured in place, good blood return, all ports aspirated, flushed, capped, sterile dressing applied Post procedure x-ray: tip of catheter in good position, no pneumothorax seen Patient tolerated procedure: well, no complications Complications: none Consult Discharge Plan - Plan Referrals: Aurelio Fong DO [Primary Care Provider] - <Jesse Sharma - Last Filed: 10/05/17 12:41> Date of Encounter: 10/05/17 All Systems: The remainder of the systems were reviewed and are negative Physical Examination Vital Signs: Vital Signs, Last 4 Hours Pulse Resp BP Pulse Ox 10/05/17 12:00 66 20 111/65 94 10/05/17 11:00 83 17 142/72 95 10/05/17 10:00 55 16 126/65 97 10/05/17 09:00 39 16 104/69 100 Results - Laboratory Findings CBC and BMP: 10/05/17 00:46 10/05/17 00:46 PT/INR, D-dimer PT 18.2 Seconds (9.4-12.1) H D 10/04/17 08:11 Abnormal lab findings: Abnormal lab results RBC 3.29 M/mcL (3.82-4.97) L 10/05/17 00:46 Hgb 9.6 g/dL (11.5-15.4) L 10/05/17 00:46 Hct 31.7 % (35.3-44.9) L 10/05/17 00:46 MCHC 30.3 g/dL (31.6-35.5) L 10/05/17 00:46 RDW 17.5 % (11.5-14.5) H 10/05/17 00:46 Neutrophils # 9.2 K/mcL (1.6-8.9) H 10/05/17 00:46 PT 18.2 Seconds (9.4-12.1) H D 10/04/17 08:11 Potassium 5.2 mEq/L (3.5-5.1) H 10/05/17 00:46 BUN 39 mg/dL (8-23) H 10/05/17 00:46 Creatinine 6.15 mg/dL (0.60-1.20) H 10/05/17 00:46 Est GFR ( Amer) 8 (> 60) L 10/05/17 00:46 Est GFR (Non-Af Amer) 7 (> 60) L 10/05/17 00:46 Glucose 197 mg/dL (70-105) H 10/05/17 00:46 POC Glucose 148 mg/dL (70-99) H 10/05/17 11:19 Calculated Osmolality 301 (280-300) H 10/05/17 00:46 Venous Ioniz Calcium 1.11 mmol/L (1.15-1.35) L 10/05/17 03:32 Phosphorus 6.2 mg/dL (2.7-4.5) H 10/05/17 00:46 AST 9 Units/L (13-39) L 10/04/17 08:11 ALT < 3 Units/L (7-52) L 10/04/17 08:11 Alkaline Phosphatase 120 Units/L (34-104) H 10/04/17 08:11 Troponin I 0.42 ng/mL (< 0.04) H* 10/05/17 00:46 B-Natriuretic Peptide 2534 pg/mL (Less than 100) H 10/05/17 00:46 Globulin 3.8 g/dL (2.4-3.5) H 10/04/17 08:11 Albumin/Globulin Ratio 0.9 (1.1-2.2) L 10/04/17 08:11 - Clinical Findings Intake & Output: Intake & Output 10/04/17 10/05/17 10/05/17 23:59 07:59 15:59 Intake Total 0 / 0 0 / 0 131 / 131 Output Total 113 / 113 251 / 251 148 / 148 Balance -113 / -113 -251 / -251 -17 / -17 Weight 73.6 kg - Attending Attestation I examined this patient and my medical decision-making was reviewed with the Resident Physician. I agree with the documented findings, disposition and treatment plan as described except to the extent set forth below. We independently had [id number] contact with the patient Patient seen and examined at bedside Labs, radiology, chart personally reviewed. Management was reviewed during multidisciplinary critical care rounds. ENGRAVER PICTURE: Awake and alert and follows commands delirium precautions Pulm: Chronic hypoxic respiratory failure status stable on nasal cannula oxygen this is secondary to Hydrostatic pulmonary edema Cards: Patient is bradycardic secondary to sinus node dysfunction with a Mobitz 2 heart block with intermittent complete heart block blood pressure has been generally map greater than 60 we will start dopamine per cardiology recommendations with possibility of temporary pacer based upon clinical course will need definitive placement of pacemaker likely early part of the week FEN-GI: Diet as tolerated Renal: ESRD on continuous renal replacement per nephrology recommendations continue to monitor electrolytes and replace per protocol ID: No active issues Heme/Onc: She is on a NOAC for history of upper ext DVT Endo: Glucose Monitored Integ/MSK: Skin Care per routine ICU Nursing Protocol to prevent ulcers. Lines: All lines examined without evidence of infection : Dispo: In ICU for close monitoring CODE: Full
[2017-10-05] MEDS ORDERED: *HR* Rivaroxaban 10 MG TABLET PO SCH (09:00)
[2017-10-05] MEDS: *HR* Promethazine 25 MG/ML VIAL IVP PRN ×2 (09:00→15:19)
[2017-10-05] MEDS: Acetaminophen 325 MG TABLET PO PRN ×2 (09:17→15:20)
--- NOTE | 2017-10-05 09:23 | Nephrology Progress Note ---
Date of Encounter: 10/05/17 Time of Encounter: 08:15 - Assessment and Plan (1) ESRD (end stage renal disease) Current Visit: Yes Status: Chronic Continue Bee for pulm edema and clearance, with UF 25mL/hr, but once the Dopamine gtt is started AND she has demonstrated improved HR, then would uptitrate the BFR to 200 and UF to 50mL/hr. Her poor hemodynamics will limit for the time being options such as standard HD. She has a hx of a left forearm AV Graft, which has not been working. I do not have immediate access to her Dialysis records or Dr. Lion's recent notes regarding this access, other than what the pt has told me. She said that she has not been ordered for a thrombectomy or a Shuntogram recently but did get referred to see a Vascular Surgeon. She currently is dialyzing via a Rt Permacath. In discussing lateral options for a Pacer with Cardiology, the nondominate UE is also the primary choice for AVG or AVG. Since I do not have access to the records indicating plans for this pt, and since this pt is new to me, I would recommend that in general to preserve the nondominate UE if possible in hopes that the AVG could be salvaged at some point. Continue to dose renally cleared Rx for ESRD. I spent about 35 min in CCT involved in Bee MDM, discussions with RNs and the Customer Relations Coordinator plus the ICU resident, and in documentation. Will closely follow with you. (2) Acute respiratory failure with hypoxia Current Visit: Yes Status: Acute She still needs ongoing UF d/t her poor respiratory status. When hemodynamics ( e.g., HR, BPs, MAPs) improve, then faster UF will be arranged as tolerated by the pt. (3) Pulmonary edema Current Visit: Yes Status: Acute See above Qualifiers: Chronicity: acute Qualified Code(s): J81.0 - Acute pulmonary edema (4) Hypotension Current Visit: Yes Status: Acute See above Qualifiers: Hypotension type: unspecified hypotension type Qualified Code(s): I95.9 - Hypotension, unspecified (5) Symptomatic bradycardia Current Visit: Yes Status: Acute Appreciate Cardio Subjective Principal diagnosis: ESRD, Bradycardia/hypotension Interval history: Pt was seen/examined in the ICU. The Bee filter was changed just once overnight (actually just a few hours ago). The pt said that she still has shortness of breath, and ongoing N/V. Objective - Vital Signs Vital signs: Vital Signs Temp Pulse Resp BP Pulse Ox 10/05/17 09:00 39 16 104/69 100 10/05/17 08:09 98 10/05/17 08:00 97.6 F 41 20 112/74 98 10/05/17 07:00 36 16 103/39 99 10/05/17 06:00 38 24 94/80 99 10/05/17 05:15 53 19 125/61 99 10/05/17 04:00 97.7 F 41 18 105/82 100 10/05/17 03:04 38 20 103/56 99 10/05/17 03:00 38 10/05/17 02:00 36 13 90/51 98 10/05/17 01:00 39 17 111/76 98 10/05/17 00:13 98.1 F 40 15 116/55 96 10/04/17 23:33 41 10/04/17 23:00 40 19 109/55 96 10/04/17 22:00 48 18 106/67 94 10/04/17 21:00 41 21 103/57 93 10/04/17 20:00 98.6 F 42 13 101/34 96 10/04/17 15:18 98.9 F 43 18 98/55 90 Intake and Output 10/04/17 10/05/17 10/05/17 23:59 07:59 15:59 Intake Total 0 / 0 0 / 0 120 / 120 Output Total 113 / 113 251 / 251 62 / 62 Balance -113 / -113 -251 / -251 58 / 58 Intake: Oral 0 / 0 0 / 0 120 / 120 Output: Urine 0 / 0 0 / 0 0 / 0 Bee 113 / 113 251 / 251 62 / 62 Other: Meal Breakfast Percent of Meal Consumed 10% Weight 73.6 kg Blood Glucose* 209 149 - General Appearance General appearance: Present: moderate distress, fatigue, frail EENT: Present: ATNC, PERRL, mucous membranes dry Neck: Present: supple Respiratory: Present: wheezing Cardiology: Present: edema (trace pedal edema), normal S1, normal S2 Additional Comments: bradycardic rate Dialysis Vascular Access: Venous Catheter (Right Permacath. The left forearm AV Graft has no bruit or thrill.) Gastrointestinal: Present: normoactive bowel sounds, no tenderness, no guarding Integumentary: Present: no rash, warm and dry Neurologic: Present: no focal deficit, no asterixis, alert and oriented x3 Musculoskeletal: Present: no deformities, no erythema, no clubbing Psychiatric: Present: mood/affect appropriate, cooperative - Lab 10/05/17 00:46 04 00:46 Most recent lab results Calcium 9.4 mg/dL (8.6-10.3) 10/05/17 00:46 Phosphorus 6.2 mg/dL (2.7-4.5) H 10/05/17 00:46 Magnesium 2.2 mg/dL (1.6-2.6) 10/05/17 00:46 Consult Discharge Plan - Plan Referrals: Aurelio Fong DO [Primary Care Provider] -
--- NOTE | 2017-10-05 10:26 | Procedure Note ---
<Robby Cheek - Last Filed: 10/05/17 10:23> Date of procedure: 10/05/17 Pre-op diagnosis: Bradycardia Post-op diagnosis: same Procedure: Right IJ CVC Placement Anesthesia: local Surgeon: Robby Cheek Was there an executive sales assistant present: Yes Evidence Technician: Jesse Sharma Estimated blood loss (cc): 2 Specimen: None Pathology: none sent Condition: critical Disposition: ICU Procedures: Internal Med - Central Line Placement Right IJ Consent Obtained: written consent Time out performed: Yes Patient placed on monitor/pulse ox: Yes MD prep: mask, gown, gloves Central line prep: Chlorhexidine scrub, sterile drapes applied Local anesthesia used: Lidocaine 1% Amount of anesthesia used (mls): 5 Ultrasound used for placement: Yes Central line lumen inserted: triple Post Procedure: sutured in place, good blood return, all ports aspirated, flushed, capped, sterile dressing applied, dark venous blood, biodisk applied Post procedure x-ray: tip of catheter in good position, no pneumothorax seen Patient tolerated procedure: well, no complications Complications: none <Jesse Sharma - Last Filed: 10/05/17 11:25> - Attending Attestation I was present for the entire procedure and supervised the procedure which was performed skillfully by Dr. Cheek without complication
[2017-10-05] MEDS: Apixaban 5 MG TABLET PO SCH ×2 (10:28→20:08)
--- NOTE | 2017-10-05 10:35 | Internal Med Progress Note ---
Date of Encounter: 10/05/17 Time of Encounter: 10:33 - Assessment and plan (1) Symptomatic bradycardia Current Visit: Yes Status: Acute Assessment and plan: Patient continues to have bradycardia with heart rate in the 30s. Will consult intensive care team to help manage patient denies ER she is on Bee and will most likely need to be started on inotropic agent for her bradycardia. Cardiology following. High risk for complications. Continue monitoring with telemetry. (2) Acute respiratory failure with hypoxia Current Visit: Yes Status: Acute Assessment and plan: On 6 L nasal cannula. We will wean FiO2 as tolerated. Due to pulmonary congestion. Volume management with dialysis. (3) ESRD (end stage renal disease) Current Visit: Yes Status: Chronic Assessment and plan: Patient currently receiving CVVHD. Nephrology following. Unable to do regular hemodialysis due to bradycardia. (4) Diabetes Current Visit: Yes Status: Chronic Assessment and plan: Blood sugars are fairly controlled. 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: with longterm use Diabetes mellitus complication status: with kidney complications Diabetes mellitus complication detail: with chronic kidney disease Chronic kidney disease stage: on chronic dialysis Qualified Code(s) : E11.22 - Type 2 diabetes mellitus with diabetic chronic kidney disease; N18.6 - End stage renal disease; Z99.2 - Dependence on renal dialysis; Z99.2 - Dependence on renal dialysis; Z99.2 - Dependence on renal dialysis; N18.6 - End stage renal disease; N18.6 - End stage renal disease; N18.6 - End stage renal disease; Z79.4 - terminal makeup operator (current) use of insulin; Z79.4 - terminal makeup operator (current ) use of insulin; Z79.4 - skilled nursing (current) use of insulin; Z79.4 - skilled nursing (current) use of insulin; Z99.2 - Dependence on renal dialysis (5) History of CVA (cerebrovascular accident) Current Visit: No Status: Chronic (6) DVT (deep venous thrombosis) Current Visit: Yes Status: Acute Assessment and plan: Continue Xarelto Qualifiers: DVT location: upper extremity Affected thrombotic vein of extremity: unspecified vein of extremity Chronicity: acute Laterality: left Qualified Code(s): I82.622 - Acute embolism and thrombosis of deep veins of left upper extremity - Time Spent With Patient Total time spent is greater than 50% in coordination of care (as documented) at patient's floor/unit and/or counseling patient: - Subjective Interval history: Patient complaining of nausea and lower extremity pain. Remains bradycardic. Denies any dizziness or lightheadedness. No palpitations. No blurred vision. No chest pain. No shortness of breath at this time. - Constitutional Vitals: Temp Pulse Resp BP Pulse Ox 97.6 F 39 16 104/69 100 10/05/17 08:00 10/05/17 09:00 10/05/17 09:00 10/05/17 09:00 10/05/17 09:00 General appearance: Present: cooperative, mild distress, A&O X 3, obese, answers questions appropriately - Neck Neck exam general surgery: Present: supple, trachea midline. Absent: lymphadenopathy - Respiratory Respiratory exam: Present: CTAB. Absent: accessory muscle use, rales, rhonchi, wheezes - Cardiovascular Cardiovascular exam: Present: bradycardia, RRR, +S1, +S2. Absent: diastolic murmur, gallop, rubs, systolic murmur - GI/Abdominal GI/Abdominal exam: Present: normal bowel sounds, soft, no peritoneal signs. Absent: distended, tenderness - Extremities Exam Extremities exam: Present: pedal edema, warm, radial pulses palpable and symmetrical. Absent: calf tenderness, cyanotic - Neurological Exam Neurological exam: Present: alert, oriented X3, no focal deficits. Absent: facial droop, speech deficit - Skin Skin exam: Present: dry, intact Internal Medicine: Result - Labs CBC & Chem 7: 10/05/17 00:46 10/05/17 00:46 Labs: Short CBC 10/05/17 Range/Units 00:46 WBC 10.6 (4.3-11.1) K/mcL Hgb 9.6 L (11.5-15.4) g/dL Hct 31.7 L (35.3-44.9) % Plt Count 272 (140-400) K/mcL Neutrophils # 9.2 H (1.6-8.9) K/mcL BMP 10/05/17 00:46 Sodium 138 Potassium 5.2 H Chloride 98 Carbon Dioxide 25 BUN 39 H Creatinine 6.15 H Glucose 197 H Calcium 9.4 Cardiac Enzymes 10/04/17 10/05/17 Range/Units 17:53 00:46 Troponin I 0.31 H* 0.42 H* (< 0.04) ng/mL - ABG Interpretation ABG results: PT/INR, D-dimer PT 18.2 Seconds (9.4-12.1) H D 10/04/17 08:11 Consult Discharge Plan - Plan Referrals: Aurelio Fong DO [Primary Care Provider] -
--- NOTE | 2017-10-05 10:45 | Cardiology Progress Note ---
Date of Encounter: 10/05/17 Time of Encounter: 10:43 Assessment and Plan (1) Symptomatic bradycardia Current Visit: Yes Status: Acute Patient with symptomatically bradycardia, heart rate 30s. Lightheadedness, dizziness, low blood pressure reported at home. Rhythm has changed to Mobitz type II, intermittent complete heart block today. Blood pressure remains relatively low, but stable. Patient is awake and coherent. Dopamine started. If remains stable, then we will continue this therapy. If it becomes necessary , we will insert a temporary pacemaker. Risks, benefits, and alternatives to pacemaker were discussed with patient and family yesterday. They are agreeable. We will plan for Saturday. (2) Mobitz type 2 second degree atrioventricular block Current Visit: Yes Status: Acute Discussion w patient/family: The assessment and plan as outlined above was discussed with the patient and/or family members who expressed understanding and agreement. All questions were answered. Thank you for involving us in the care of your patient. Please call with any questions. Subjective Principal diagnosis: ESRD, Bradycardia/hypotension Interval history: Patient transferred for Bee overnight. Today, she is awake. She answers questions coherently. Blood pressure remains marginal. Rhythm today is Mobitz 2, possible intermittent complete heart block. Objective Vital Signs, Last 4 Hours Temp Pulse Resp BP Pulse Ox 10/05/17 10:00 55 16 126/65 97 10/05/17 09:00 39 16 104/69 100 10/05/17 08:09 98 10/05/17 08:00 97.6 F 41 20 112/74 98 10/05/17 07:00 36 16 103/39 99 General: Conversant, No Apparent Distress HEENT: Atraumatic, Mucus Membranes Moist Neck: Other (Catheter right IJ.) Cardiac: Other (Slightly irregular pulse, bradycardic.) Lungs: Normal Breath Sounds (Shallow, but clear.) Neuro: Alert and responsive, No focal deficits noted Abdomen: Soft, Non-Tender Skin: No rashes noted on visualized skin Musculoskeletal: No Chest Wall Tenderness Extremities: No Clubbing, No Cyanosis Results 10/05/17 00:46 10/05/17 00:46 Lab Results 10/04/17 10/05/17 10/05/17 17:53 00:46 00:46 WBC 10.6 Hgb 9.6 L Hct 31.7 L Plt Count 272 Sodium Potassium Chloride Carbon Dioxide BUN Creatinine Glucose Calcium Magnesium Troponin I 0.31 H* 0.42 H* B-Natriuretic Peptide 10/05/17 10/05/17 10/05/17 00:46 00:46 00:46 WBC Hgb Hct Plt Count Sodium 138 Potassium 5.2 H Chloride 98 Carbon Dioxide 25 BUN 39 H Creatinine 6.15 H Glucose 197 H Calcium 9.4 Magnesium 2.2 Troponin I B-Natriuretic Peptide 2534 H - Imaging and Cardiology Echo: pending - EKG Interpretation EKG results cardiology: personally reviewed Consult Discharge Plan - Plan Referrals: Aurelio Fong DO [Primary Care Provider] -
[2017-10-06] MEDS: PrismaSATE BGK 4/2.5 5,000 ML CRRT SCH ×6 (01:11→11:14)
[2017-10-06 04:28] LABS: Basophils # 0.1 K/mcL (0.0-0.2); Basophils % 0.5 %; Eosinophils % 0.3 %; Hematocrit 30.4 % (35.3-44.9); Hemoglobin 9.3 g/dL (11.5-15.4); Immature Granulocytes % 0.5 % (0-4); Lymphocytes # 0.9 K/mcL (0.6-4.6); Lymphocytes % 8.4 %; Mean Corpuscular HGB Conc 30.6 g/dL (31.6-35.5); Mean Corpuscular Hemoglobin 29.8 pg (28.0-33.3); Mean Corpuscular Volume 97.4 fL (83.0-100.0); Mean Platelet Volume 10.8 fL (9.4-12.4); Monocytes # 0.5 K/mcL (0.0-1.3); Monocytes % 4.5 %; Neutrophils # 8.8 K/mcL (1.6-8.9); Platelet Count 231 K/mcL (140-400); Red Blood Count 3.12 M/mcL (3.82-4.97); Red Cell Distribution Width 17.3 % (11.5-14.5); Segmented Neutrophils % 85.8 %
[2017-10-06 04:50] LABS: Alanine Aminotransferase < 3 Units/L (7-52); Albumin 3.5 g/dL (3.5-5.7); Alkaline Phosphatase 111 Units/L (34-104); Aspartate Amino Transferase 11 Units/L (13-39); BUN/Creatinine Ratio 8 (6-26); Bilirubin,Total 0.6 mg/dL (0.3-1.0); Blood Urea Nitrogen 19 mg/dL (8-23); Calcium 9.6 mg/dL (8.6-10.3); Carbon Dioxide 27 mEq/L (23-29); Chloride 100 mEq/L (98-107); Globulin 3.4 g/dL (2.4-3.5); Glucose 182 mg/dL (70-105); Magnesium 2.5 mg/dL (1.6-2.6); Osmolality,Calculated 291 (280-300); Phosphorous 3.5 mg/dL (2.7-4.5); Potassium 5.1 mEq/L (3.5-5.1); Sodium 137 mEq/L (136-145); Total Protein 6.9 g/dL (6.4-8.9); eGFR For African Americans 24 (> 60); eGFR For Non-African Americans 20 (> 60)
[2017-10-06] MEDS: Acetaminophen 325 MG TABLET PO PRN (05:35)
--- NOTE | 2017-10-06 07:46 | Pulmonology Progress Note ---
<ZacharyJesse W - Last Filed: 10/06/17 09:06> Date of Encounter: 10/06/17 Objective PUL Vital signs: Last Vital Signs Temp 97.7 F 10/06/17 04:00 Pulse 57 10/06/17 08:00 Resp 20 10/06/17 08:00 BP 141/60 10/06/17 08:00 Pulse Ox 98 10/06/17 08:00 Results - Laboratory Findings CBC and BMP: 10/06/17 04:00 10/06/17 04:00 PT/INR, D-dimer PT 18.2 Seconds (9.4-12.1) H D 10/04/17 08:11 Abnormal lab findings: Abnormal lab results RBC 3.12 M/mcL (3.82-4.97) L 10/06/17 04:00 Hgb 9.3 g/dL (11.5-15.4) L 10/06/17 04:00 Hct 30.4 % (35.3-44.9) L 10/06/17 04:00 MCHC 30.6 g/dL (31.6-35.5) L 10/06/17 04:00 RDW 17.3 % (11.5-14.5) H 10/06/17 04:00 PT 18.2 Seconds (9.4-12.1) H D 10/04/17 08:11 Creatinine 2.45 mg/dL (0.60-1.20) H 10/06/17 04:00 Est GFR ( Amer) 24 (> 60) L 10/06/17 04:00 Est GFR (Non-Af Amer) 20 (> 60) L 10/06/17 04:00 Glucose 182 mg/dL (70-105) H 10/06/17 04:00 POC Glucose 154 mg/dL (70-99) H 10/06/17 07:39 Venous Ioniz Calcium 1.11 mmol/L (1.15-1.35) L 10/05/17 03:32 AST 11 Units/L (13-39) L 10/06/17 04:00 ALT < 3 Units/L (7-52) L 10/06/17 04:00 Alkaline Phosphatase 111 Units/L (34-104) H 10/06/17 04:00 Troponin I 0.42 ng/mL (< 0.04) H* 10/05/17 00:46 B-Natriuretic Peptide 4044 pg/mL (Less than 100) H 10/06/17 04:00 Albumin/Globulin Ratio 1.0 (1.1-2.2) L 10/06/17 04:00 - Clinical Findings Intake & Output: Intake & Output 10/05/17 10/06/17 10/06/17 23:59 07:59 15:59 Intake Total 26.2 / 26.2 114 / 114 7 / 7 Output Total 462 / 462 466 / 466 60 / 60 Balance -435.8 / -435.8 -352 / -352 -53 / -53 Weight 74.026 kg Consult Discharge Plan - Plan Referrals: Aurelio Fong DO [Primary Care Provider] - - Attending Attestation I examined this patient and my medical decision-making was reviewed with the Resident Physician. I agree with the documented findings, disposition and treatment plan as described except to the extent set forth below. We independently had [id number] contact with the patient Patient seen and examined at bedside Labs, radiology, chart personally reviewed. Management was reviewed during multidisciplinary critical care rounds. MOLDING PLASTERER: Awake and alert no deficits. Pulm: Stable oxygenation on room air Cards: Bradycardia with heart block on low dose dopamine stable BP. Cards following plan for PPM. History of CHF FEN-GI: ADAT Renal: ESRD on CRRT cont volume removal today. Trends electrolytes replace per protocol ID: No active Issues Heme/Onc: on Eliquis Cardiology regarding holding for procedure. Endo: Glucose Monitored Integ/MSK: Skin Care per routine ICU Nursing Protocol to prevent ulcers. Lines: All lines examined without evidence of infection : Dispo: Remain in ICU for bradycardia CODE: Full. <Lucian Page - Last Filed: 10/06/17 15:14> Date of Encounter: 10/06/17 Time of Encounter: 07:45 Assessment and Plan (1) Symptomatic bradycardia Current Visit: Yes Status: Acute Presented with symptomatic bradycardia with HR dropping into the 30s - Heart rate this morning was 57 bpm - Last blood pressure was 119/63 - Monitor has showed intermittent complete heart block despite first-degree AV block found on initial EKG - Per cardiology, rhythm was Mobitz 2, possible intermittent complete heart block - Cardiology would like to insert a pacemaker, plan to do it Saturday - Patient currently on dopamine - Continuous telemetry, pulse ox monitoring (2) Hypotension Current Visit: Yes Status: Acute - Presented with hypotension in setting of diastolic CHF with bradycardia - Currently on dopamine - Last blood pressure was 119/63 Qualifiers: Hypotension type: unspecified hypotension type Qualified Code(s): I95.9 - Hypotension, unspecified (3) Acute respiratory failure with hypoxia Current Visit: Yes Status: Acute - Acute respiratory failure with hypoxia secondary to CHF and ESRD with fluid overload - Currently oxygenating appropriately on High flow O2 - We will continue to monitor, consider PAP if necessary (4) ESRD (end stage renal disease) Current Visit: Yes Status: Chronic - ESRD on HD MWF - Not stable for standard HD - Nephrology on board to manage Bee - Will likely require IR consult Saturday for AV Graft thrombectomy - Currently on normal saline (5) Anemia Current Visit: No Status: Chronic - Chronic anemia in ESRD patient - Last hemoglobin was 9.3 - Continue to monitor Qualifiers: Anemia type: due to chronic kidney disease Chronic kidney disease stage: on chronic dialysis Qualified Code(s): N18.6 - End stage renal disease; D63.1 - Anemia in chronic kidney disease; D63.1 - Anemia in chronic kidney disease; Z99.2 - Dependence on renal dialysis; Z99.2 - Dependence on renal dialysis; Z99.2 - Dependence on renal dialysis; Z99.2 - Dependence on renal dialysis (6) Elevated troponin Current Visit: No Status: Acute Elevated troponin, likely secondary to demand ischemia in setting of CHF and ESRD with fluid overload - EKG negative for ischemic changes - Cardiology is on board - Continuous cardiac monitoring (7) Diabetes Current Visit: Yes Status: Chronic - Insulin sliding scale, low-dose - Diabetic diet - Glucose elevated this morning at 182 Qualifiers: Diabetes mellitus type: type 2 Diabetes mellitus usp insulin use: with oysterman use Diabetes mellitus complication status: with kidney complications Diabetes mellitus complication detail: with chronic kidney disease Chronic kidney disease stage: on chronic dialysis Qualified Code(s) : E11.22 - Type 2 diabetes mellitus with diabetic chronic kidney disease; N18.6 - End stage renal disease; N18.6 - End stage renal disease; N18.6 - End stage renal disease; N18.6 - End stage renal disease; Z79.4 - termination clerk (current) use of insulin; Z79.4 - termination clerk (current) use of insulin; Z79.4 - custodial ( current) use of insulin; Z79.4 - custodial (current) use of insulin; Z99.2 - Dependence on renal dialysis; Z99.2 - Dependence on renal dialysis; Z99.2 - Dependence on renal dialysis; Z99.2 - Dependence on renal dialysis (8) DVT prophylaxis Current Visit: No Status: Acute - Eliquis 5 mg by mouth twice a day Subjective Principal diagnosis: ESRD, Bradycardia/hypotension Interval history: Patient was seen and examined at bedside this morning. Patient denies having any dizziness, lightheadedness, palpitations, blurred vision, chest pain, or shortness of breath. Currently resting comfortably in bed and has no complaints at this time. Objective PUL Vital signs: Last Vital Signs Temp 97.7 F 10/06/17 04:00 Pulse 57 10/06/17 07:00 Resp 12 10/06/17 07:00 BP 119/63 10/06/17 07:00 Pulse Ox 93 10/06/17 07:00 General appearance: no acute distress Eyes: nonicteric ENT: oropharynx moist Neck: supple Effort: normal Auscultation: bilateral: other (Bibasilar crackles) Percussion: bilateral: not dull Tactile fremitus: bilateral: normal Cardiovascular: regular rate and rhythm Gastrointestinal: normoactive bowel sounds, non-distended Integumentary: normal Extremities: no cyanosis, no edema, no clubbing Musculoskeletal: no deformities, ROM normal normal mental status, non-focal exam mood appropriate, affect normal Results - Laboratory Findings CBC and BMP: 10/06/17 04:00 10/06/17 04:00 PT/INR, D-dimer PT 18.2 Seconds (9.4-12.1) H D 10/04/17 08:11 Abnormal lab findings: Abnormal lab results RBC 3.12 M/mcL (3.82-4.97) L 10/06/17 04:00 Hgb 9.3 g/dL (11.5-15.4) L 10/06/17 04:00 Hct 30.4 % (35.3-44.9) L 10/06/17 04:00 MCHC 30.6 g/dL (31.6-35.5) L 10/06/17 04:00 RDW 17.3 % (11.5-14.5) H 10/06/17 04:00 PT 18.2 Seconds (9.4-12.1) H D 10/04/17 08:11 Creatinine 2.45 mg/dL (0.60-1.20) H 10/06/17 04:00 Est GFR ( Amer) 24 (> 60) L 10/06/17 04:00 Est GFR (Non-Af Amer) 20 (> 60) L 10/06/17 04:00 Glucose 182 mg/dL (70-105) H 10/06/17 04:00 POC Glucose 154 mg/dL (70-99) H 10/06/17 07:39 Venous Ioniz Calcium 1.11 mmol/L (1.15-1.35) L 10/05/17 03:32 AST 11 Units/L (13-39) L 10/06/17 04:00 ALT < 3 Units/L (7-52) L 10/06/17 04:00 Alkaline Phosphatase 111 Units/L (34-104) H 10/06/17 04:00 Troponin I 0.42 ng/mL (< 0.04) H* 10/05/17 00:46 B-Natriuretic Peptide 4044 pg/mL (Less than 100) H 10/06/17 04:00 Albumin/Globulin Ratio 1.0 (1.1-2.2) L 10/06/17 04:00 - Clinical Findings Intake & Output: Intake & Output 10/05/17 10/05/17 10/06/17 15:59 23:59 07:59 Intake Total 156.3 / 156.3 26.2 / 26.2 114 / 114 Output Total 357 / 357 462 / 462 466 / 466 Balance -200.7 / -200.7 -435.8 / -435.8 -352 / -352 Weight 74.026 kg
[2017-10-06] MEDS: *HR* Promethazine 25 MG/ML VIAL IVP PRN (08:10)
[2017-10-06] MEDS: Insulin LISPRO 300 UNITS/3 ML VIAL SQ SCH ×4 (08:11→20:09)
--- NOTE | 2017-10-06 08:25 | Nephrology Progress Note ---
Date of Encounter: 10/06/17 Time of Encounter: 07:35 - Assessment and Plan (1) ESRD (end stage renal disease) Current Visit: Yes Status: Chronic Continue Bee for UF and will continue to uptitrate to 100mL/hr. Hemodynamics have started to stabilize with the Dopamine gtt, which is reassuring, so at the end of the day I'll plan to stop Bee. Her SCr and overall clearance has been excellent all weekend with an eflluent dose of 25 or greater. In fact her clearance has been so good that she may not actually need HD tomorrow, which would open the window for Cardiology to arrange their intervention at any point. I would recommend that in general to preserve the nondominate UE if possible in hopes that the AVG could be salvaged at some point. Continue to dose renally cleared Rx for ESRD. Discussed with the hospitalist and NIGHT SUPERVISOR. Will closely follow with you. (2) Acute respiratory failure with hypoxia Current Visit: Yes Status: Acute Dyspnea is improving and she is now off NC O2. So will finish out Bee at the end of the day or if the filter were to clot, then would not restart Bee. UF increased to 100mL/hr, as described above. (3) Pulmonary edema Current Visit: Yes Status: Acute See above Qualifiers: Chronicity: acute Qualified Code(s): J81.0 - Acute pulmonary edema (4) Hypotension Current Visit: Yes Status: Acute See above. Improving. Qualifiers: Hypotension type: unspecified hypotension type Qualified Code(s): I95.9 - Hypotension, unspecified (5) Symptomatic bradycardia Current Visit: Yes Status: Acute Appreciate Cardio. Now on Dopamine via a Rt IJ CVC. Subjective Principal diagnosis: ESRD, Bradycardia/hypotension Interval history: Pt was seen/examined in the ICU. The Bee filter was changed just once overnight (so twice so far). The pt said that her shortness of breath and N/V have all started to improve. She voiced feeling much better. The NIGHT SUPERVISOR was present during my interview and exam. Objective - Vital Signs Vital signs: Vital Signs Temp Pulse Resp BP Pulse Ox 10/06/17 07:37 58 10/06/17 07:00 57 12 119/63 93 10/06/17 06:00 78 14 124/76 96 10/06/17 05:00 78 16 130/65 93 10/06/17 04:05 56 10/06/17 04:00 97.7 F 56 23 115/63 92 10/06/17 03:00 53 14 98/51 91 10/06/17 02:00 84 26 126/55 93 10/06/17 01:00 57 12 128/64 100 10/06/17 00:00 98.5 F 56 13 121/57 98 10/05/17 23:48 54 10/05/17 23:00 54 14 127/101 97 10/05/17 22:00 61 13 143/69 99 10/05/17 21:00 63 12 116/96 91 10/05/17 20:06 97.9 F 10/05/17 20:00 98.5 F 61 20 127/66 97 10/05/17 19:00 59 15 120/53 100 10/05/17 18:00 58 17 124/66 100 10/05/17 17:00 59 16 110/70 95 10/05/17 16:00 61 16 137/59 98 10/05/17 15:00 59 19 128/62 98 10/05/17 14:00 88 18 141/74 94 10/05/17 13:00 61 13 106/61 94 10/05/17 12:00 97 F L 66 20 111/65 94 10/05/17 11:00 83 17 142/72 95 10/05/17 10:00 55 16 126/65 97 10/05/17 09:00 39 16 104/69 100 Intake and Output 10/05/17 10/06/17 10/06/17 23:59 07:59 15:59 Intake Total 26.2 / 26.2 114 / 114 Output Total 462 / 462 466 / 466 Balance -435.8 / -435.8 -352 / -352 Intake: IV Fluids 26.2 / 26.2 114 / 114 PrismaSATE BGK 4/2.5 5,000 ML @ 0 / 0 1000 mls/hr CRRT CONT ALIYAH Rx#: [id number] DOPamine Premix 400mg/250mL 400 26.2 / 26.2 114 / 114 mg In 250 ml @ 5 MCG/KG/MIN 13 .8 mls/hr IVC .[id number] ALIYAH Rx#: [id number] Oral 0 / 0 0 / 0 Output: Urine 0 / 0 0 / 0 Bee 462 / 462 466 / 466 Other: Weight 74.026 kg Blood Glucose* 160 Patient Weight 10/06/17 23:59 Weight 74.026 kg - General Appearance General appearance: Present: well-developed, well-nourished, appears started age EENT: Present: ATNC, PERRL, mucous membranes moist Neck: Present: no JVD, supple Respiratory: Present: clear Cardiology: Present: no edema, normal S1, normal S2 Dialysis Vascular Access: Venous Catheter (Right Permacath with dressing appearing C/D/I) Gastrointestinal: Present: normoactive bowel sounds, no tenderness, no guarding Integumentary: Present: no rash, warm and dry Neurologic: Present: no focal deficit, no asterixis, alert and oriented x3 Musculoskeletal: Present: no deformities, no erythema, no cyanosis Psychiatric: Present: mood/affect appropriate, cooperative - Lab 10/06/17 04:00 10/06/17 04:00 Most recent lab results Calcium 9.6 mg/dL (8.6-10.3) 10/06/17 04:00 Phosphorus 3.5 mg/dL (2.7-4.5) 10/06/17 04:00 Magnesium 2.5 mg/dL (1.6-2.6) 10/06/17 04:00 Consult Discharge Plan - Plan Referrals: Aurelio Fong DO [Primary Care Provider] -
[2017-10-06] MEDS: Apixaban 5 MG TABLET PO SCH (08:50)
--- NOTE | 2017-10-06 10:31 | Event Note ---
Date of Encounter: 10/06/17 Time of Encounter: 10:29 After rounds of present loaded by the nurse that the patient's ICD had fired causing shock. The rhythm on the telemetry. To be tachycardia with underlying left bundle morphology secondary to PPM. Patient denied chest pain prior to the event checking electrolytes ECG and I discussed the case personally with the cardiology service who will come to interrogate the patient's device
[2017-10-06] MEDS: Ondansetron 4 MG/2 ML VIAL IVP PRN (10:34)
--- NOTE | 2017-10-06 11:35 | Cardiology Progress Note ---
Date of Encounter: 10/06/17 Time of Encounter: 11:33 Assessment and Plan (1) Symptomatic bradycardia Current Visit: Yes Status: Acute Symptomatic bradycardia, intermittent Mobitz type 2/complete heart block. Currently sinus rhythm on dopamine. Blood pressure stable. Risks, benefits, and alternatives to a permanent pacemaker have been discussed. Patient is agreeable. Placement of device is to be determined. Upper extremity AV fistula noted with thrombosis. Nephrology recommends using nondominate UE in hopes AV graft could be salvaged. (2) Severe mitral regurgitation Current Visit: Yes Status: Acute Severe mitral regurgitation with associated severe pulmonary hypertension noted. Patient appears to represent a poor candidate for surgical intervention. Consideration could be given to MitraClip in the future. Continue to optimize volume status with dialysis. Afterload reducing medications as blood pressure tolerates. Discussion w patient/family: The assessment and plan as outlined above was discussed with the patient and/or family members who expressed understanding and agreement. All questions were answered. Thank you for involving us in the care of your patient. Please call with any questions. Subjective Principal diagnosis: ESRD, Bradycardia/hypotension Interval history: Overall, patient more alert today. Currently sinus rhythm. Periods of intermittent heart block noted. Blood pressure stable. TTE reviewed, LVEF normal. Severe MR noted. Calcified mitral valve noted, specific area of echodensity on anterior mitral valve leaflet. This lesion appears old. No clinical signs of endocarditis. WBC negative. No fevers. Objective Vital Signs, Last 4 Hours Temp Pulse Resp BP Pulse Ox 10/06/17 11:00 74 18 142/87 96 10/06/17 10:00 75 13 125/75 96 10/06/17 09:00 64 12 144/76 97 10/06/17 08:00 97.5 F L 57 20 141/60 98 10/06/17 07:37 58 General: Conversant, No Apparent Distress HEENT: Atraumatic, Normocephaly, Mucus Membranes Moist Neck: No JVD, Normal carotid pulses Cardiac: Reg Rate and Rhythm, Other (Systolic murmur) Lungs: Other (Shallow.) Neuro: Alert and responsive, No focal deficits noted Abdomen: Soft, Non-Tender Skin: No rashes noted on visualized skin Musculoskeletal: No Chest Wall Tenderness Extremities: No Clubbing, No Cyanosis, No Edema Results 10/06/17 04:00 10/06/17 04:00 Lab Results 10/06/17 10/06/17 10/06/17 04:00 04:00 04:00 WBC 10.2 Hgb 9.3 L Hct 30.4 L Plt Count 231 Sodium 137 Potassium 5.1 Chloride 100 Carbon Dioxide 27 BUN 19 Creatinine 2.45 H Glucose 182 H Calcium 9.6 Magnesium 2.5 Total Bilirubin 0.6 AST 11 L ALT < 3 L Alkaline Phosphatase 111 H B-Natriuretic Peptide 4044 H - Imaging and Cardiology Echo: report reviewed Consult Discharge Plan - Plan Referrals: Aurelio Fong DO [Primary Care Provider] -
[2017-10-06] MEDS ORDERED: *HR* Heparin 5,000 UNIT/ML VIAL ONE (14:43)
[2017-10-06] MEDS ORDERED: Haloperidol Lactate 5 MG/ML VIAL IVP ONE (22:34)
[2017-10-07 04:52] LABS: Basophils % 0.5 %; Eosinophils # 0.1 K/mcL (0.0-0.6); Eosinophils % 1.4 %; Hematocrit 32.3 % (35.3-44.9); Hemoglobin 9.8 g/dL (11.5-15.4); Immature Granulocytes % 0.5 % (0-4); Lymphocytes % 12.1 %; Mean Corpuscular HGB Conc 30.3 g/dL (31.6-35.5); Mean Corpuscular Hemoglobin 29.6 pg (28.0-33.3); Mean Corpuscular Volume 97.6 fL (83.0-100.0); Mean Platelet Volume 10.8 fL (9.4-12.4); Monocytes # 0.5 K/mcL (0.0-1.3); Monocytes % 5.5 %; Neutrophils # 6.8 K/mcL (1.6-8.9); Platelet Count 261 K/mcL (140-400); Red Blood Count 3.31 M/mcL (3.82-4.97); Red Cell Distribution Width 17.3 % (11.5-14.5)
[2017-10-07 05:12] LABS: Potassium 4.6 mEq/L (3.5-5.1)
--- NOTE | 2017-10-07 07:01 | Pulmonology Progress Note ---
<AnuragMiguel M - Last Filed: 10/07/17 10:03> Date of Encounter: 10/07/17 Objective PUL Vital signs: Last Vital Signs Temp 97.9 F 10/07/17 08:00 Pulse 51 10/07/17 09:37 Resp 18 10/07/17 08:00 BP 126/58 10/07/17 08:00 Pulse Ox 98 10/07/17 08:00 Results - Laboratory Findings CBC and BMP: 10/07/17 04:00 10/07/17 04:00 PT/INR, D-dimer PT 18.2 Seconds (9.4-12.1) H D 10/04/17 08:11 Abnormal lab findings: Abnormal lab results RBC 3.31 M/mcL (3.82-4.97) L 10/07/17 04:00 Hgb 9.8 g/dL (11.5-15.4) L 10/07/17 04:00 Hct 32.3 % (35.3-44.9) L 10/07/17 04:00 MCHC 30.3 g/dL (31.6-35.5) L 10/07/17 04:00 RDW 17.3 % (11.5-14.5) H 10/07/17 04:00 PT 18.2 Seconds (9.4-12.1) H D 10/04/17 08:11 Carbon Dioxide 20 mEq/L (23-29) L 10/07/17 04:00 Creatinine 2.79 mg/dL (0.60-1.20) H 10/07/17 04:00 Est GFR ( Amer) 20 (> 60) L 10/07/17 04:00 Est GFR (Non-Af Amer) 17 (> 60) L 10/07/17 04:00 Glucose 109 mg/dL (70-105) H 10/07/17 04:00 POC Glucose 129 mg/dL (70-99) H 10/07/17 07:18 Venous Ioniz Calcium 1.11 mmol/L (1.15-1.35) L 10/05/17 03:32 AST 11 Units/L (13-39) L 10/06/17 04:00 ALT < 3 Units/L (7-52) L 10/06/17 04:00 Alkaline Phosphatase 111 Units/L (34-104) H 10/06/17 04:00 Troponin I 0.42 ng/mL (< 0.04) H* 10/05/17 00:46 B-Natriuretic Peptide 4044 pg/mL (Less than 100) H 10/06/17 04:00 Albumin/Globulin Ratio 1.0 (1.1-2.2) L 10/06/17 04:00 - Clinical Findings Intake & Output: Intake & Output 10/06/17 10/07/17 10/07/17 23:59 07:59 15:59 Intake Total 7.1 / 7.1 Output Total 132 / 132 Balance -124.9 / -124.9 Weight 69.6 kg Consult Discharge Plan - Plan Referrals: Aurelio Fong DO [Primary Care Provider] - - Attending Attestation I examined this patient and my medical decision-making was reviewed with the Resident Physician. I agree with the documented findings, disposition and treatment plan as described except to the extent set forth below. Patient seen and examined. Labs, radiology, chart personally reviewed. 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 GI: Nutrition per dietary and GI prophylaxis per routine Heme: DVT prophylaxis per routine. Start heparin drip. IR to check her graft. ID: Continue antibiotics and plan to de-escalation Renal; ESRD and nephrology Endorcine: blood glucose is monitored Lines: all lines checked and no evidence of infections Skin: skin care to prevent pressure ulcers per nursing routine care <Robby Cheek - Last Filed: 10/07/17 10:53> Date of Encounter: 10/07/17 Time of Encounter: 08:00 Assessment and Plan (1) Symptomatic bradycardia Current Visit: Yes Status: Acute Symptomatic bradycardia with heart rates dropping into the 30s Monitor has showed intermittent complete heart block despite first-degree AV block found on initial EKG Cardiology would like to insert a pacemaker, plan to do it tomorrow The patient has been on Dopamine, however pulled central line in the night Can currently run low dose dopamine peripherally, may need new CVC Continuous cardiac monitoring with pulse ox monitoring (2) Hypotension Current Visit: Yes Status: Acute Hypotension in setting of diastolic CHF with bradycardia The patient requires hemodialysis for fluid overload status and renal failure We will continue dopamine for pressure support Qualifiers: Hypotension type: unspecified hypotension type Qualified Code(s): I95.9 - Hypotension, unspecified (3) Acute respiratory failure with hypoxia Current Visit: Yes Status: Acute Acute respiratory failure with hypoxia secondary to CHF and ESRD with fluid overload Currently oxygenating appropriately on 2-4L NC O2 We will continue to monitor, consider PAP if necessary (4) ESRD (end stage renal disease) Current Visit: Yes Status: Chronic ESRD on HD MWF Had hever over weekend because HD could not be completed Removed approximately 2.6L fluid on hever Per Nephrology, patient likely won't need HD today We will consult IR for AV Graft Thrombectomy (5) Anemia Current Visit: No Status: Chronic 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 Stable Qualifiers: Anemia type: due to chronic kidney disease Chronic kidney disease stage: on chronic dialysis Qualified Code(s): N18.6 - End stage renal disease; D63.1 - Anemia in chronic kidney disease; D63.1 - Anemia in chronic kidney disease; Z99.2 - Dependence on renal dialysis; Z99.2 - Dependence on renal dialysis; Z99.2 - Dependence on renal dialysis; Z99.2 - Dependence on renal dialysis (6) Elevated troponin Current Visit: No Status: Acute Elevated troponin, likely secondary to demand ischemia in setting of CHF and ESRD with fluid overload EKG negative for ischemic changes Cardiology is on board continuous cardiac monitoring (7) DVT prophylaxis Current Visit: No Status: Acute Currently on eliquis Heparin for preprocedure eliquis vacation Subjective Principal diagnosis: ESRD, Bradycardia/hypotension Interval history: The patient is no acute complaints this morning. She did apparently have some delirium overnight and ripped out her right central venous catheter. She has been running with dopamine peripherally since that time without problems. Objective PUL Vital signs: Last Vital Signs Temp 98.1 F 10/07/17 04:00 Pulse 62 10/07/17 06:00 Resp 20 10/07/17 06:00 BP 134/66 10/07/17 06:00 Pulse Ox 95 10/07/17 06:00 Gen: Vitals noted. No acute distress. AAOx3 but somnolent HEENT: PERRL/EOMI with mild yellowing, oropharynx clear, Normocephalic, atraumatic Neck: Supple. No adenopathy. Cardiac: RRR, 2/6 systolic murmur heard best at the LLSB without obvious radiation to the axilla or carotids most consistent with MVR, +S1/S2 Pulmonary: bibasilar crackles are heard Abdomen: soft, nontender, BS noted, no guarding MSK: ROM intact, no joint swelling noted Extremities: Trace BLE edema, nontender calf, no cyanosis or clubbing Neuro: moves all extremities, no focal deficits Psych: Appropriate mood and behavior Results - Laboratory Findings CBC and BMP: 10/07/17 04:00 10/07/17 04:00 PT/INR, D-dimer PT 18.2 Seconds (9.4-12.1) H D 10/04/17 08:11 Abnormal lab findings: Abnormal lab results RBC 3.31 M/mcL (3.82-4.97) L 10/07/17 04:00 Hgb 9.8 g/dL (11.5-15.4) L 10/07/17 04:00 Hct 32.3 % (35.3-44.9) L 10/07/17 04:00 MCHC 30.3 g/dL (31.6-35.5) L 10/07/17 04:00 RDW 17.3 % (11.5-14.5) H 10/07/17 04:00 PT 18.2 Seconds (9.4-12.1) H D 10/04/17 08:11 Carbon Dioxide 20 mEq/L (23-29) L 10/07/17 04:00 Creatinine 2.79 mg/dL (0.60-1.20) H 10/07/17 04:00 Est GFR ( Amer) 20 (> 60) L 10/07/17 04:00 Est GFR (Non-Af Amer) 17 (> 60) L 10/07/17 04:00 Glucose 109 mg/dL (70-105) H 10/07/17 04:00 POC Glucose 116 mg/dL (70-99) H 10/06/17 19:58 Venous Ioniz Calcium 1.11 mmol/L (1.15-1.35) L 10/05/17 03:32 AST 11 Units/L (13-39) L 10/06/17 04:00 ALT < 3 Units/L (7-52) L 10/06/17 04:00 Alkaline Phosphatase 111 Units/L (34-104) H 10/06/17 04:00 Troponin I 0.42 ng/mL (< 0.04) H* 10/05/17 00:46 B-Natriuretic Peptide 4044 pg/mL (Less than 100) H 10/06/17 04:00 Albumin/Globulin Ratio 1.0 (1.1-2.2) L 10/06/17 04:00 - Clinical Findings Intake & Output: Intake & Output 10/06/17 10/06/17 10/07/17 15:59 23:59 07:59 Intake Total 366.8 / 366.8 7.1 / 7.1 Output Total 819 / 819 132 / 132 Balance -452.2 / -452.2 -124.9 / -124.9 Weight 69.6 kg
[2017-10-07] MEDS: Insulin LISPRO 300 UNITS/3 ML VIAL SQ SCH ×4 (08:31→19:59)
--- NOTE | 2017-10-07 09:02 | Nephrology Progress Note ---
Date of Encounter: 10/07/17 Time of Encounter: 08:00 - Assessment and Plan (1) ESRD (end stage renal disease) Current Visit: Yes Status: Chronic She has received excellent clearance throughout the weekend with Bee, which has been held since her hemodynamics have been stablized with the Dopamine gtt. Will hold off on HD today (she does not need the clearance or UF today d/t the Bee over the weekend). Pacer as per Cardiology. If the pt's HR and BP are sufficient, then tomorrow or Saturday would consider as the next HD. Dialysis access dysfunction: she likely needs a LUE AVG thrombectomy and or fistulagram. Apparently that was not arranged as an outpt last week, and since she happens to be in the hospital for the Symptomatic Bradycardia, then once she is stablized s/p Pacer, it would be helpful to have the thrombectomy and/or fistulagram. Discussed with the ICU team. Continue to dose renally cleared Rx for ESRD. 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 Will closely follow with you. (2) Acute respiratory failure with hypoxia Current Visit: Yes Status: Acute Dyspnea has improved, and she is now off NC O2. (3) Pulmonary edema Current Visit: Yes Status: Acute See above Qualifiers: Chronicity: acute Qualified Code(s): J81.0 - Acute pulmonary edema (4) Hypotension Current Visit: Yes Status: Acute See above. Improved with dopamine drip. Qualifiers: Hypotension type: unspecified hypotension type Qualified Code(s): I95.9 - Hypotension, unspecified (5) Symptomatic bradycardia Current Visit: Yes Status: Acute Appreciate Cardio. Now on Dopamine gtt. Feel free to choose either side, since she would not be safe to have HD without a stable HR (when she was reid last week, HD was not possible). Subjective Principal diagnosis: ESRD, Bradycardia/hypotension Interval history: Pt was seen/examined in the ICU. Per report she was confused last night and pulled out her CVC. She reported feeling very well this AM and had no N/V/D. She denied feeling short of breath. Objective - Vital Signs Vital signs: Vital Signs Temp Pulse Resp BP Pulse Ox 10/07/17 06:00 62 20 134/66 95 10/07/17 05:00 73 20 138/69 93 10/07/17 04:00 98.1 F 76 20 129/72 97 10/07/17 03:34 59 10/07/17 03:00 59 18 126/56 96 10/07/17 02:00 59 20 135/61 97 10/07/17 01:00 61 18 125/53 93 10/07/17 00:14 58 10/07/17 00:00 97.3 F L 58 18 129/53 97 10/06/17 23:00 60 20 137/61 100 10/06/17 22:00 60 20 121/91 100 10/06/17 21:00 60 20 117/61 100 10/06/17 20:02 58 10/06/17 20:00 98.3 F 58 20 81/43 100 10/06/17 19:00 58 20 119/48 96 10/06/17 18:00 56 17 124/70 99 10/06/17 17:00 51 16 127/42 97 10/06/17 16:00 58 16 123/58 96 10/06/17 15:00 68 15 131/68 96 10/06/17 14:00 57 17 124/62 97 10/06/17 13:00 77 14 117/63 97 10/06/17 12:00 97.5 F L 75 14 137/74 97 10/06/17 11:00 74 18 142/87 96 10/06/17 10:00 75 13 125/75 96 10/06/17 09:00 64 12 144/76 97 Intake and Output 10/06/17 10/07/17 10/07/17 23:59 07:59 15:59 Intake Total 7.1 / 7.1 Output Total 132 / 132 Balance -124.9 / -124.9 Intake: IV Fluids 7.1 / 7.1 PrismaSATE BGK 4/2.5 5,000 ML @ 0 / 0 1000 mls/hr CRRT CONT ALIYAH Rx#: [id number] DOPamine Premix 400mg/250mL 400 7.1 / 7.1 mg In 250 ml @ 5 MCG/KG/MIN 13 .8 mls/hr IVC .Q18H7M ALIYAH Rx#: [id number] Oral 0 / 0 Output: Urine 0 / 0 Bee 132 / 132 Other: Weight 69.6 kg Blood Glucose* 116 Patient Weight 10/07/17 23:59 Weight 69.6 kg - General Appearance Exam: General appearance: Present: well-developed, well-nourished, appears started age EENT: Present: ATNC, PERRL, mucous membranes moist Neck: Present: no JVD, supple Respiratory: Present: clear Cardiology: Present: no edema, normal S1, normal S2 Dialysis Vascular Access: Venous Catheter (Right Permacath with dressing appearing C/D/I) Gastrointestinal: Present: normoactive bowel sounds, no tenderness, no guarding Integumentary: Present: no rash, warm and dry Neurologic: Present: no focal deficit, no asterixis, alert and oriented x3 Musculoskeletal: Present: no deformities, no erythema, no cyanosis Psychiatric: Present: mood/affect appropriate, cooperative and friendly. - Lab 10/07/17 04:00 10/07/17 04:00 Most recent lab results Calcium 9.0 mg/dL (8.6-10.3) 10/07/17 04:00 Phosphorus 3.5 mg/dL (2.7-4.5) 10/06/17 04:00 Magnesium 2.5 mg/dL (1.6-2.6) 10/06/17 04:00 Consult Discharge Plan - Plan Referrals: Aurelio Fong DO [Primary Care Provider] -
--- NOTE | 2017-10-07 10:17 | Electrophysiology Consult Note ---
<Francheska Ayon - Last Filed: 10/07/17 10:19> Date of Encounter: 10/07/17 Time of Encounter: 08:00 Assessment and Plan (1) Second degree AV block, Mobitz type I Current Visit: Yes Status: Acute Reviewed ECG's and telemetry with Dr. Harry Esquivel; appears to be second degree heart block type 1. Reports pre-syncopal, syncopal episodes the past 3-4 weeks. Has not been on AV kelton blocking agents as outpatient. Currently hemodynamically stable, on dopamine at 2 mcg/kg/min; currently SR in the 70s. Nephrology recommends to preserve non-dominant UE to salvage left AV fistula, may undergo thrombectomy today by IR. Unable to implant PPM today due to right upper chest permacath. Discussed with Dr. Harry Esquivel; recommend relocation of permacath in order to implant PPM at right upper chest wall. Updated Dr. Hutchins with EP recommendations. Will continue to follow closely. NPO after MN for possible PPM in AM. Patient updated and aware of plan. She is agreeable for placement of PPM when able. Discussion w patient/family: The assessment and plan as outlined above was discussed with the patient and/or family members who expressed understanding and agreement. All questions were answered. Thank you for involving us in the care of your patient. Please call with any questions. The patient was discussed and reviewed with Dr. Harry Esquivel; changes to be made accordingly. History of Present Illness Consult date: 10/07/17 Requesting physician: Farhad Mendoza Consult reason: Heart block Chief complaint: Presyncope/syncope History of present illness: Ms. Aguilar is a 71 year old female with PMHx significant for HTN, HLD, DMII, CVA , ESRD on HD who presented to the ED with bradycardia and hypotension; she was transferred from the Dialysis center. Ms. Aguilar reports a 3-4 week history of pre-syncope and also several syncopal episodes where she has "fell out of recliner." She reports PCP has discontinued all blood pressure medications within the past month due to low blood pressures. Of note, has thrombosis to left AV fistula, referred to Vascular surgery for intervention and was started on Xarelto as outpatient. EP consulted today for possible PPM placement due to second degree heart block. Upon exam, she is alert and oriented x3. She is DNR-CCA but agrees to PPM placement. Currently hemodynamically stable, HR 70's NSR with stable BP, on dopamine at 2 mcg/kg/min. Prior CV testing: TTE 09/2017: LVEF 55%, severe MR, severe PH (est. RVSP >100 mmHg) Regadenoson nuclear stress 09/2015: perfusion imagining negative for ischemia or infarct, gated EF=48%. Past Med Surg Social Fam HX - Past Medical History Attestation: Yes The following information was validated with the patient. Source: patient Medical history: CVA, DVT, diabetes, dialysis, hyperlipidemia, hypertension, renal disease, other Psychiatric history: no psych history - Past Surgical History Surgical History: cholecystectomy - Social History Smoking Status: Never smoker Smokeless Tobacco Status: No Alcohol use: none Drug use: none - Family History Mother Living Status: Hx Family Cardiac Disorders: Yes Medications and Allergies Rivaroxaban [Xarelto] 20 mg PO DAILY 10/04/17 [History] 3 Allergy/AdvReac Type Severity Reaction Status Date / Time adhesive Allergy Rash Verified 10/04/17 08:42 Beta-Blockers Allergy Hallucinati Verified 10/04/17 08:42 (Beta-Adrenergic Bloc ng metoprolol [From Toprol XL] Allergy Hallucinati Verified 10/04/17 08:42 ng lisinopril AdvReac Intermediate Hallucinati Verified 10/04/17 08:42 ng acetaminophen [From Percocet] AdvReac Nausea Verified 10/04/17 08:42 Oxycodone [From Percocet] AdvReac Nausea Verified 10/04/17 08:42 tramadol AdvReac Vomiting Verified 10/04/17 08:42 All Systems Review: The remainder of the systems were reviewed and are negative - Cardiovascular Cardiovascular: as per HPI Physical Examination Vital Signs, Last 4 Hours Temp Pulse Resp BP Pulse Ox 10/07/17 09:37 51 10/07/17 08:00 97.9 F 51 18 126/58 98 10/07/17 07:00 58 18 139/65 95 General: Conversant, No Apparent Distress HEENT: Atraumatic, Normocephaly, Mucus Membranes Moist Cardiac: Reg Rate and Rhythm, Normal S1 and S2 Lungs: Normal Breath Sounds Neuro: Alert and responsive Skin: Other (right upper chest wall permacath; left AV fistula) Extremities: No Edema, Normal Pulses Results 10/07/17 04:00 10/07/17 04:00 Lab Results 10/07/17 10/07/17 04:00 04:00 WBC 8.5 Hgb 9.8 L Hct 32.3 L Plt Count 261 Sodium 138 Potassium 4.6 Chloride 105 Carbon Dioxide 20 L BUN 20 Creatinine 2.79 H Glucose 109 H Calcium 9.0 Active Medications Acetaminophen (Tylenol) 650 mg PO Q6HR PRN PRN Reason: Pain Stop: 04/06/18 09:10 Last Admin: 10/06/17 05:35 Dose: 650 mg Apixaban (Eliquis) 5 mg PO BID ALIYAH Stop: 04/06/18 09:01 Last Admin: 10/06/17 08:50 Dose: 5 mg Calcium Carbonate (Tums) 1,000 mg PO Q4HR PRN; Protocol PRN Reason: Heartburn Stop: 04/07/18 05:11 Dextrose/Water (Dextrose 50% (Syg)) 25 ml IVP AD PRN PRN Reason: Hypoglycemia Stop: 04/05/18 12:27 Glucagon (Glucagen) 1 mg IM ONCE PRN PRN Reason: Hypoglycemia Stop: 04/05/18 12:27 Glucose (Gluctose) 15 gm PO ONCE PRN PRN Reason: Hypoglycemia Stop: 04/05/18 12:27 Glucose (Gluctose) 30 gm PO ONCE PRN PRN Reason: Hypoglycemia Stop: 04/05/18 12:27 Heparin Sodium (Porcine) (Heparin) 0 unit IV ONCE PRN PRN Reason: SEE COMMENTS Stop: 04/05/18 17:07 Dextrose (Dextrose 5%) 1,000 mls @ 100 mls/hr IVC .Q10H PRN PRN Reason: HYPOGLYCEMIA Stop: 04/05/18 12:27 Dopamine HCl/Dextrose (Dopamine Premix 400mg/250ml) 400 mg in 250 mls @ 13.8 mls/hr IVC .Q18H7M ALIYAH; 5 MCG/KG/MIN PRN Reason: Protocol Stop: 04/06/18 08:16 Last Titration: 10/06/17 16:00 Dose: 3 mcg/kg/min, 8.28 mls/hr Insulin Human Lispro (Humalog) 0 units SQ TIDAC ALIYAH PRN Reason: Protocol Stop: 10/21/18 11:31 Last Admin: 10/07/17 08:31 Dose: Not Given Insulin Human Lispro (Humalog) 0 units SQ HS ALIYAH PRN Reason: Protocol Stop: 04/06/18 21:01 Last Admin: 10/06/17 20:09 Dose: Not Given Naloxone HCl (Narcan) 0.4 mg IVP Q2MIN PRN PRN Reason: SEE COMMENTS Stop: 04/05/18 11:36 Ondansetron HCl (Zofran) 4 mg IVP Q6HR PRN; Protocol PRN Reason: Nausea Stop: 04/05/18 14:23 Last Admin: 10/06/17 10:34 Dose: 4 mg Promethazine HCl (Phenergan) 12.5 mg IVP Q6HR PRN PRN Reason: Nausea And Vomiting Stop: 04/06/18 08:15 Last Admin: 10/06/17 08:10 Dose: 12.5 mg - EKG Interpretation EKG results cardiology: personally reviewed Consult Discharge Plan - Plan Referrals: Aurelio Fong DO [Primary Care Provider] - 10/23/17 1:00 pm <Harry Esquivel - Last Filed: 10/10/17 19:08> Date of Encounter: 10/10/17 - Attending Attestation I have personally performed a face to face evaluation on this patient. I have reviewed and agree with the care plan. History and Exam by me shows: Second degree AV block, 2:1 AV block. Symptomatatic, would benefit from pacer. Would prefer to implant on opposite side of dialysis access. Assessment and Plan Discussion w patient/family: The assessment and plan as outlined above was discussed with the patient and/or family members who expressed understanding and agreement. All questions were answered. Thank you for involving us in the care of your patient. Please call with any questions. History of Present Illness History of present illness: Ms. Aguilar is a 71 year old female All Systems Review: The remainder of the systems were reviewed and are negative Physical Examination Vital Signs, Last 4 Hours Temp Pulse Resp BP Pulse Ox 10/08/17 15:23 67 18 111/90 99 10/08/17 13:53 98.3 F 18 115/83 10/08/17 13:30 104/58 10/08/17 13:15 102/58 10/08/17 13:00 76 20 98/60 100 10/08/17 12:45 91/55 10/08/17 12:30 93/58 10/08/17 12:26 97.7 F 10/08/17 12:15 102/71 10/08/17 12:00 75 20 105/62 99 Results 10/10/17 00:38 10/10/17 00:38 Lab Results 10/07/17 10/08/17 10/08/17 20:10 04:26 04:26 WBC 6.8 Hgb 10.6 L Hct 34.3 L Plt Count 264 APTT 34.6 Sodium 133 L Potassium 4.8 Chloride 102 Carbon Dioxide 21 L BUN 34 H Creatinine 4.67 H Glucose 126 H Calcium 8.9 10/08/17 10/08/17 04:26 11:37 WBC Hgb Hct Plt Count APTT 41.3 H 57.5 H Sodium Potassium Chloride Carbon Dioxide BUN Creatinine Glucose Calcium
[2017-10-07] MEDS ORDERED: Heparin 25,000 UNIT/500 ML D5W 25,000 UNIT/500 ML BAG IVC SCH (11:00)
[2017-10-07 11:29] LABS: Hematocrit 33.8 % (35.3-44.9); Hemoglobin 10.2 g/dL (11.5-15.4); Mean Corpuscular HGB Conc 30.2 g/dL (31.6-35.5); Mean Corpuscular Hemoglobin 29.5 pg (28.0-33.3); Mean Corpuscular Volume 97.7 fL (83.0-100.0); Mean Platelet Volume 10.4 fL (9.4-12.4); Platelet Count 266 K/mcL (140-400); Red Blood Count 3.46 M/mcL (3.82-4.97); Red Cell Distribution Width 17.3 % (11.5-14.5)
[2017-10-07 11:33] LABS: INR 1.7; Prothrombin Time 18.3 Seconds (9.4-12.1)
[2017-10-07 11:36] LABS: Activated Partial Thrombo Time 36.9 Seconds (26.0-36.0)
[2017-10-07] MEDS: Acetaminophen 325 MG TABLET PO PRN (14:46)
[2017-10-07] MEDS ORDERED: *HR* Heparin 5,000 UNIT/ML VIAL ONE (20:56)
[2017-10-08] MEDS ORDERED: PHENTOLAMINE MESYLATE 5 MG VIAL IJ ONE (03:30)
[2017-10-08 04:49] LABS: Basophils # 0.1 K/mcL (0.0-0.2); Basophils % 0.9 %; Eosinophils # 0.2 K/mcL (0.0-0.6); Eosinophils % 2.2 %; Hematocrit 34.3 % (35.3-44.9); Hemoglobin 10.6 g/dL (11.5-15.4); Immature Granulocytes % 0.7 % (0-4); Lymphocytes # 1.3 K/mcL (0.6-4.6); Lymphocytes % 19.5 %; Mean Corpuscular HGB Conc 30.9 g/dL (31.6-35.5); Mean Corpuscular Hemoglobin 29.4 pg (28.0-33.3); Mean Corpuscular Volume 95.3 fL (83.0-100.0); Mean Platelet Volume 9.9 fL (9.4-12.4); Monocytes # 0.5 K/mcL (0.0-1.3); Monocytes % 6.8 %; Neutrophils # 4.8 K/mcL (1.6-8.9); Platelet Count 264 K/mcL (140-400); Red Cell Distribution Width 17.8 % (11.5-14.5); Segmented Neutrophils % 69.9 %
[2017-10-08 05:01] LABS: Calcium 8.9 mg/dL (8.6-10.3); Potassium 4.8 mEq/L (3.5-5.1)
--- NOTE | 2017-10-08 05:11 | Electrocardiograph Report ---
[address] [address] Test Date: 2017-10-04 Pat Name: Joyce Aguilar Department: 111 Room: [facility] Gender: F Cardiology Coordinator: [id number] : 1945 Requested By: Keren Smith Order Number: [id number] Reading MD: Farhad Mendoza Measurements Intervals [place] Rate: 43 P: 56 DC: 232 QRS: -49 QRSD: 140 T: 56 QT: 538 QTc: 483 Interpretive Statements SINUS BRADYCARDIA WITH FIRST DEGREE AV BLOCK MARKED LEFT AXIS DEVIATION IVCD Electronically Signed On 10-08-2017 5:09:38 EDT by Farhad Mendoza
[2017-10-08] MEDS ORDERED: *HR* Heparin 5,000 UNIT/ML VIAL ONE (05:27)
[2017-10-08] MEDS ORDERED: *HR* Heparin 5,000 UNIT/ML VIAL IVP PRN ×4 (05:29→11:17)
[2017-10-08] MEDS: Acetaminophen 325 MG TABLET PO PRN ×3 (05:41→23:33)
--- NOTE | 2017-10-08 05:41 | Electrocardiograph Report ---
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
[2017-10-08] MEDS ORDERED: 0.9 % Sodium Chloride 250 ML IVC PRN ×2 (07:40→11:17)
[2017-10-08] MEDS: Insulin LISPRO 300 UNITS/3 ML VIAL SQ SCH ×3 (07:45→16:59)
--- NOTE | 2017-10-08 08:13 | Pulmonology Progress Note ---
<GwendolynMiguel strickland M - Last Filed: 10/08/17 09:21> Date of Encounter: 10/08/17 Objective PUL Vital signs: Last Vital Signs Temp 98.3 F 10/08/17 07:57 Pulse 67 10/08/17 08:00 Resp 18 10/08/17 08:00 BP 126/61 10/08/17 08:00 Pulse Ox 100 10/08/17 08:00 Results - Laboratory Findings CBC and BMP: 10/08/17 04:26 10/08/17 04:26 PT/INR, D-dimer PT 18.3 Seconds (9.4-12.1) H 10/07/17 11:13 Abnormal lab findings: Abnormal lab results RBC 3.60 M/mcL (3.82-4.97) L 10/08/17 04:26 Hgb 10.6 g/dL (11.5-15.4) L 10/08/17 04:26 Hct 34.3 % (35.3-44.9) L 10/08/17 04:26 MCHC 30.9 g/dL (31.6-35.5) L 10/08/17 04:26 RDW 17.8 % (11.5-14.5) H 10/08/17 04:26 PT 18.3 Seconds (9.4-12.1) H 10/07/17 11:13 APTT 41.3 Seconds (26.0-36.0) H 10/08/17 04:26 Sodium 133 mEq/L (136-145) L 10/08/17 04:26 Carbon Dioxide 21 mEq/L (23-29) L 10/08/17 04:26 BUN 34 mg/dL (8-23) H 10/08/17 04:26 Creatinine 4.67 mg/dL (0.60-1.20) H 10/08/17 04:26 Est GFR ( Amer) 11 (> 60) L 10/08/17 04:26 Est GFR (Non-Af Amer) 9 (> 60) L 10/08/17 04:26 Glucose 126 mg/dL (70-105) H 10/08/17 04:26 POC Glucose 110 mg/dL (70-99) H 10/08/17 07:18 Venous Ioniz Calcium 1.11 mmol/L (1.15-1.35) L 10/05/17 03:32 AST 11 Units/L (13-39) L 10/06/17 04:00 ALT < 3 Units/L (7-52) L 10/06/17 04:00 Alkaline Phosphatase 111 Units/L (34-104) H 10/06/17 04:00 Troponin I 0.42 ng/mL (< 0.04) H* 10/05/17 00:46 B-Natriuretic Peptide 4044 pg/mL (Less than 100) H 10/06/17 04:00 Albumin/Globulin Ratio 1.0 (1.1-2.2) L 10/06/17 04:00 - Clinical Findings Intake & Output: Intake & Output 10/07/17 10/08/17 10/08/17 23:59 07:59 15:59 Intake Total 175 / 175 362.9 / 362.9 Output Total 0 / 0 0 / 0 0 / 0 Balance 175 / 175 362.9 / 362.9 0 / 0 Weight 69.4 kg Consult Discharge Plan - Plan Referrals: Aurelio Fong DO [Primary Care Provider] - - Attending Attestation I examined this patient and my medical decision-making was reviewed with the Resident Physician. I agree with the documented findings, disposition and treatment plan as described except to the extent set forth below. Patient seen and examined. Labs, radiology, chart personally reviewed. Agree with resident's history and physical, assessment, plan with following comments: AEROPHYSICS ENGINEER: Patient follows commands, Pulmonary: Acceptable oxygenation and ventilation Cardiovascular: Awaiting for the pacemaker by bird keeper GI: Nutrition per dietary and GI prophylaxis per routine Heme: DVT prophylaxis per routine Renal; discussed with nephrology regarding plan of care Endorcine: blood glucose is monitored Lines: all lines checked and no evidence of infections Skin: skin care to prevent pressure ulcers per nursing routine care Overall prognosis is poor <Lucian Page - Last Filed: 10/08/17 18:04> Date of Encounter: 10/08/17 Time of Encounter: 08:13 Assessment and Plan (1) Symptomatic bradycardia Current Visit: Yes Status: Acute Symptomatic bradycardia with heart rates dropping into the 30s - Monitor has showed intermittent complete heart block despite first-degree AV block found on initial EKG - Currently on dopamine; vital signs are stable at this time - Continuous cardiac monitoring with pulse ox monitoring - Pulse this morning was 67 bpm - Electrophysiology has been consulted; per electrophysiology consult note, and plan is for permanent pacemaker placement today (2) Hypotension Current Visit: Yes Status: Acute Hypotension in setting of diastolic CHF with bradycardia - Patient requires HD for fluid overload status and renal failure - Continue dopamine for pressure support - Blood pressure this morning is stable at 126/61 Qualifiers: Hypotension type: unspecified hypotension type Qualified Code(s): I95.9 - Hypotension, unspecified (3) Acute respiratory failure with hypoxia Current Visit: Yes Status: Acute Acute respiratory failure with hypoxia secondary to CHF and ESRD with fluid overload - Patient is currently satting at 100% on room air - Continue to monitor vital signs (4) ESRD (end stage renal disease) Current Visit: Yes Status: Chronic ESRD on HD MWF - Had hever over weekend because HD could not be completed - Removed approximately 2.6L fluid on hever - IR has been consulted for AV graft thrombectomy - Per nephrology, patient received excellent clearance throughout the weekend with hever - If patients heart rate and blood pressure are sufficient, next HD will be today or tomorrow (5) Anemia Current Visit: No Status: Chronic 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 - Stable - Hemoglobin is stable this morning 10.6 Qualifiers: Anemia type: due to chronic kidney disease Chronic kidney disease stage: on chronic dialysis Qualified Code(s): N18.6 - End stage renal disease; D63.1 - Anemia in chronic kidney disease; D63.1 - Anemia in chronic kidney disease; Z99.2 - Dependence on renal dialysis; Z99.2 - Dependence on renal dialysis; Z99.2 - Dependence on renal dialysis; Z99.2 - Dependence on renal dialysis (6) Elevated troponin Current Visit: No Status: Acute Elevated troponin, likely secondary to demand ischemia in setting of CHF and ESRD with fluid overload - EKG negative for ischemic changes - Cardiology is on board - Continuous cardiac monitoring (7) Diabetes Current Visit: Yes Status: Chronic - Insulin sliding scale, low-dose Qualifiers: Diabetes mellitus type: type 2 Diabetes mellitus intermediate insulin use: with intermediate use Diabetes mellitus complication status: with kidney complications Diabetes mellitus complication detail: with chronic kidney disease Chronic kidney disease stage: on chronic dialysis Qualified Code(s) : E11.22 - Type 2 diabetes mellitus with diabetic chronic kidney disease; N18.6 - End stage renal disease; Z99.2 - Dependence on renal dialysis; Z99.2 - Dependence on renal dialysis; Z99.2 - Dependence on renal dialysis; N18.6 - End stage renal disease; N18.6 - End stage renal disease; N18.6 - End stage renal disease; Z79.4 - FPC (current) use of insulin; Z79.4 - buttermaker continuous churn (current ) use of insulin; Z79.4 - buttermaker continuous churn (current) use of insulin; Z79.4 - buttermaker continuous churn (current) use of insulin; Z99.2 - Dependence on renal dialysis (8) DVT prophylaxis Current Visit: No Status: Acute - Currently on heparin drip Subjective Principal diagnosis: ESRD, Bradycardia/hypotension Interval history: Patient was seen and examined at bedside this morning. Denies having any problems today. Denies having any chest pain, palpitations, nausea, vomiting, fever, chills, dizziness, or lightheadedness. Plan is for her to have pacemaker placement today. Objective PUL Vital signs: Last Vital Signs Temp 98.3 F 10/08/17 07:57 Pulse 67 10/08/17 08:00 Resp 18 10/08/17 08:00 BP 126/61 10/08/17 08:00 Pulse Ox 100 10/08/17 08:00 General appearance: no acute distress Eyes: nonicteric ENT: oropharynx moist Neck: supple Effort: normal Auscultation: bilateral: clear Percussion: bilateral: not dull Tactile fremitus: bilateral: normal Cardiovascular: regular rate and rhythm Gastrointestinal: normoactive bowel sounds, non-distended Integumentary: normal Musculoskeletal: no deformities, ROM normal mood appropriate, affect normal Results - Laboratory Findings CBC and BMP: 10/08/17 04:26 10/08/17 04:26 PT/INR, D-dimer PT 18.3 Seconds (9.4-12.1) H 10/07/17 11:13 Abnormal lab findings: Abnormal lab results RBC 3.60 M/mcL (3.82-4.97) L 10/08/17 04:26 Hgb 10.6 g/dL (11.5-15.4) L 10/08/17 04:26 Hct 34.3 % (35.3-44.9) L 10/08/17 04:26 MCHC 30.9 g/dL (31.6-35.5) L 10/08/17 04:26 RDW 17.8 % (11.5-14.5) H 10/08/17 04:26 PT 18.3 Seconds (9.4-12.1) H 10/07/17 11:13 APTT 41.3 Seconds (26.0-36.0) H 10/08/17 04:26 Sodium 133 mEq/L (136-145) L 10/08/17 04:26 Carbon Dioxide 21 mEq/L (23-29) L 10/08/17 04:26 BUN 34 mg/dL (8-23) H 10/08/17 04:26 Creatinine 4.67 mg/dL (0.60-1.20) H 10/08/17 04:26 Est GFR ( Amer) 11 (> 60) L 10/08/17 04:26 Est GFR (Non-Af Amer) 9 (> 60) L 10/08/17 04:26 Glucose 126 mg/dL (70-105) H 10/08/17 04:26 POC Glucose 110 mg/dL (70-99) H 10/08/17 07:18 Venous Ioniz Calcium 1.11 mmol/L (1.15-1.35) L 10/05/17 03:32 AST 11 Units/L (13-39) L 10/06/17 04:00 ALT < 3 Units/L (7-52) L 10/06/17 04:00 Alkaline Phosphatase 111 Units/L (34-104) H 10/06/17 04:00 Troponin I 0.42 ng/mL (< 0.04) H* 10/05/17 00:46 B-Natriuretic Peptide 4044 pg/mL (Less than 100) H 10/06/17 04:00 Albumin/Globulin Ratio 1.0 (1.1-2.2) L 10/06/17 04:00 - Clinical Findings Intake & Output: Intake & Output 10/07/17 10/08/17 10/08/17 23:59 07:59 15:59 Intake Total 175 / 175 362.9 / 362.9 Output Total 0 / 0 0 / 0 0 / 0 Balance 175 / 175 362.9 / 362.9 0 / 0 Weight 69.4 kg
[2017-10-08] MEDS ORDERED: 0.9 % Sodium Chloride 2,000 ML ONE (08:16)
[2017-10-08] MEDS ORDERED: D5% in Water 1,000 ML IVC PRN (11:17)
[2017-10-08] MEDS ORDERED: Heparin 25,000 UNIT/500 ML D5W 25,000 UNIT/500 ML BAG IVC SCH (11:17)
[2017-10-08] MEDS ORDERED: Dextrose Gel 15 GM/37.5 ML TUBE PO PRN ×2 (11:17)
[2017-10-08] MEDS ORDERED: *HR* Dextrose 50 % in Water (Syg) 50 ML SYRINGE IVP PRN (11:17)
[2017-10-08] MEDS ORDERED: Naloxone 0.4 MG/ML INJ IVP PRN (11:17)
[2017-10-08] MEDS ORDERED: *HR* Heparin 5,000 UNIT/ML VIAL IV PRN (11:17)
[2017-10-08] MEDS ORDERED: Ondansetron 4 MG/2 ML VIAL IVP PRN (11:17)
--- NOTE | 2017-10-08 13:46 | Electrophysiology ProgressNote ---
Date of Encounter: 10/08/17 Time of Encounter: 13:44 Assessment and Plan (1) Symptomatic bradycardia Current Visit: Yes Status: Acute Syptomatic bradycardia. EKG showed sinus bradycardia. HR improved with atropine in ED. Currently mid 40's. Started on low dose dopamine gtt and now HR 70-80. Dopamine interrupted today due to lack of IV access. HR decreased to 40-50 when dopamine stopped. Intermittent second degree type I AV block seen. Intermittent CHB seen earlier in stay. Planning for PPM on after dialysis catheter is removed from right chest. Due to AV fistula and DVT on left, PPM placement on the right is recommended. Currently hemodynamically stable, on dopamine at 2 mcg/kg/min; currently SR in the 70s. Echocardiogram-LVEF 55%. Normal LV chamber size, wall thickness and function. Indeterminate diastolic function. Normal right ventricular structure and function. Small calcified echodensity that appears adherent to the anterior MV leaflet. Calcification suggests more of a chronic process. Clinical correlation suggested. Severe mitral regurgitation. Mild-moderate tricuspid regurgitation. Severe pulmonary hypertension. Estimated RVSP is >100 mmHg. Stress test 09/2015- negative for ischemia, EF 48%. TSH is normal. Discussed with Dr. Harry Esquivel, plan for PPM . (2) Second degree AV block, Mobitz type I Current Visit: Yes Status: Acute Intermittent second degree type I AV block. Discussion w patient/family: The assessment and plan as outlined above was discussed with the patient and/or family members who expressed understanding and agreement. All questions were answered. Thank you for involving us in the care of your patient. Please call with any questions. Subjective Principal diagnosis: ESRD, Bradycardia/hypotension Interval history: Patient undergoing dialysis. She denies syncope, dizziness. Denies chest pain. C /o BLE pain and requesting pain medication. Objective Vital Signs, Last 4 Hours Temp Pulse Resp BP Pulse Ox 10/08/17 13:30 104/58 10/08/17 13:15 102/58 10/08/17 13:00 76 20 98/60 100 10/08/17 12:45 91/55 10/08/17 12:30 93/58 10/08/17 12:26 97.7 F 10/08/17 12:15 102/71 10/08/17 12:00 75 20 105/62 99 10/08/17 11:45 123/80 10/08/17 11:30 123/73 10/08/17 11:15 121/75 10/08/17 11:00 80 20 101/68 98 10/08/17 10:45 109/67 10/08/17 10:30 105/62 10/08/17 10:15 156/84 10/08/17 10:00 98.0 F 78 18 151/77 97 General: Conversant, No Apparent Distress HEENT: Atraumatic, Normocephaly, Mucus Membranes Moist Neck: No JVD, Normal carotid pulses Cardiac: Reg Rate and Rhythm, Normal S1 and S2, No Murmur, Other (Currently SR. ) Lungs: Normal Breath Sounds, No Wheeze, Rales, Rhonchi Neuro: Alert and responsive, No focal deficits noted Abdomen: Soft, Non-Tender Skin: No rashes noted on visualized skin Musculoskeletal: No Chest Wall Tenderness Extremities: No Clubbing, No Cyanosis, No Edema, Normal Pulses Results 10/08/17 04:26 10/08/17 04:26 Lab Results 10/07/17 10/08/17 10/08/17 20:10 04:26 04:26 WBC 6.8 Hgb 10.6 L Hct 34.3 L Plt Count 264 APTT 34.6 Sodium 133 L Potassium 4.8 Chloride 102 Carbon Dioxide 21 L BUN 34 H Creatinine 4.67 H Glucose 126 H Calcium 8.9 10/08/17 10/08/17 04:26 11:37 WBC Hgb Hct Plt Count APTT 41.3 H 57.5 H Sodium Potassium Chloride Carbon Dioxide BUN Creatinine Glucose Calcium - Imaging and Cardiology Echo: report reviewed Consult Discharge Plan - Plan Referrals: Aurelio Fong DO [Primary Care Provider] -
--- NOTE | 2017-10-08 16:15 | Nephrology Progress Note ---
Date of Encounter: 10/08/17 Time of Encounter: 08:35 - Assessment and Plan (1) ESRD (end stage renal disease) Current Visit: Yes Status: Chronic After much discussion with ICU, Cardio, Vascular Surgery, and IR, the LUE AV Graft appears to be considered clotted to long to salvage with a thrombectomy. Cardio needs the right side for placment of a PPM, but since she has had a Permacath on the right, the decisions were made as follows: she'll need the Permacath removed after HD today, then Cardio would place the PPM from the right. She still needs a Permacath as a bridge until a new AVF or AVG could be placed with Dr. Garcia, most likely in the RUE. So will request a Left sided Permacath. I updated Dr. Lion of this pt's care, since she is the primary compounder helper, who related why the pt never had a thromectomy originally when the LUE AVG thrombosed. Counting several telephone discussions with the ICU resident late yesterday, plus with IR, Dr. Lion, and in discussions with the ICU team and dialysis nurse , I spent about 45 min with this pt's care. Continue to dose renally cleared Rx for ESRD. Discussed with the hospitalist and LAY OUT DRAFTER. Will closely follow with you. (2) Acute respiratory failure with hypoxia Current Visit: Yes Status: Acute Dyspnea has improved, and she is now off NC O2. (3) Pulmonary edema Current Visit: Yes Status: Acute See above Qualifiers: Chronicity: acute Qualified Code(s): J81.0 - Acute pulmonary edema (4) Hypotension Current Visit: Yes Status: Acute See above. Improved with dopamine drip. Qualifiers: Hypotension type: unspecified hypotension type Qualified Code(s): I95.9 - Hypotension, unspecified (5) Symptomatic bradycardia Current Visit: Yes Status: Acute Okay to access the LUE for a PIV and for the next Permacath. HD today only after the Dopamine gtt is restarted. Subjective Principal diagnosis: ESRD, Bradycardia/hypotension Interval history: Pt was seen/examined in the ICU. She did not affirm N/V/D or uremic symptoms. Objective - Vital Signs Vital signs: Vital Signs Temp Pulse Resp BP Pulse Ox 10/08/17 15:42 62 10/08/17 15:23 67 18 111/90 99 10/08/17 13:53 98.3 F 18 115/83 10/08/17 13:30 104/58 10/08/17 13:15 102/58 10/08/17 13:00 76 20 98/60 100 10/08/17 12:45 91/55 10/08/17 12:30 93/58 10/08/17 12:26 97.7 F 10/08/17 12:15 102/71 10/08/17 12:00 75 20 105/62 99 10/08/17 11:45 123/80 10/08/17 11:30 123/73 10/08/17 11:15 121/75 10/08/17 11:00 80 20 101/68 98 10/08/17 10:45 109/67 10/08/17 10:30 105/62 10/08/17 10:15 156/84 10/08/17 10:00 98.0 F 78 18 151/77 97 10/08/17 09:00 54 18 133/83 97 10/08/17 08:00 67 18 126/61 100 10/08/17 07:57 98.3 F 10/08/17 07:00 72 18 109/49 99 10/08/17 06:00 59 16 121/52 96 10/08/17 05:00 86 18 138/44 96 10/08/17 04:37 98.6 F 10/08/17 04:00 81 20 96/52 98 10/08/17 03:30 79 20 143/48 98 10/08/17 02:00 50 18 132/42 97 10/08/17 01:00 51 16 147/39 97 10/08/17 00:00 97.3 F L 52 18 149/46 98 10/07/17 23:00 52 18 149/51 98 10/07/17 22:00 68 14 130/58 98 10/07/17 21:00 51 18 142/36 96 10/07/17 20:48 99.2 F 10/07/17 19:52 63 10/07/17 18:00 79 16 137/80 96 10/07/17 17:00 81 16 82/55 99 Intake and Output 10/08/17 10/08/17 10/08/17 07:59 15:59 23:59 Intake Total 362.9 / 362.9 605 / 605 Output Total 0 / 0 927 / 927 Balance 362.9 / 362.9 -322 / -322 Intake: IV Fluids 362.9 / 362.9 5 / 5 DOPamine Premix 400mg/250mL 400 222.9 / 222.9 5 / 5 mg In 250 ml @ 5 MCG/KG/MIN 13 .8 mls/hr IVC .Q18H7M ALIYAH Rx#: [id number] Heparin 25,000 UNIT/500 ML D5W 140 / 140 25,000 unit In 500 ml @ 14 UNIT /KG/HR 19.488 mls/hr IVC .Q24H ALIYAH Rx#:[id number] Oral 0 / 0 0 / 0 Intake, Rinseback and Flushes 600 / 600 Output: Urine 0 / 0 0 / 0 Total Dialysis (HD) Output 927 / 927 Other: Weight 69.4 kg 69.4 kg Blood Glucose* 110 90 Hemodialysis Net Fluid Removed 327 (mL) Patient Weight 10/08/17 23:59 Weight 69.4 kg - General Appearance General appearance: Present: well-developed, well-nourished, appears started age EENT: Present: ATNC, PERRL, mucous membranes moist Neck: Present: supple Respiratory: Present: clear Cardiology: Present: no edema, normal S1, normal S2 Dialysis Vascular Access: Venous Catheter (C/D/I) Gastrointestinal: Present: normoactive bowel sounds, no tenderness, no guarding Integumentary: Present: warm and dry, ecchymotic (in the RUE from the prior PIVs ) Neurologic: Present: no focal deficit, no asterixis, alert and oriented x3 Musculoskeletal: Present: no deformities, no erythema, no cyanosis Psychiatric: Present: mood/affect appropriate, cooperative - Lab 10/08/17 04:26 10/08/17 04:26 Most recent lab results Calcium 8.9 mg/dL (8.6-10.3) 10/08/17 04:26 Phosphorus 3.5 mg/dL (2.7-4.5) 10/06/17 04:00 Magnesium 2.5 mg/dL (1.6-2.6) 10/06/17 04:00 Consult Discharge Plan - Plan Referrals: Aurelio Fong DO [Primary Care Provider] -
[2017-10-08 18:32] LABS: Activated Partial Thrombo Time 193.8 Seconds (26.0-36.0)
[2017-10-08 18:42] LABS: Heparin anti-factor XA UFH 1.43 IU/mL (0.30-0.70)
[2017-10-08] MEDS ORDERED: Apixaban 5 MG TABLET PO SCH (21:00)
[2017-10-08] MEDS ORDERED: Insulin LISPRO 300 UNITS/3 ML VIAL SQ SCH (21:00)
[2017-10-09] MEDS ORDERED: *HR* Heparin 5,000 UNIT/ML VIAL IVP PRN ×2 (01:03)
[2017-10-09] MEDS ORDERED: Ondansetron 4 MG/2 ML VIAL IVP PRN (01:03)
[2017-10-09] MEDS ORDERED: D5% in Water 1,000 ML IVC PRN (01:03)
[2017-10-09] MEDS ORDERED: *HR* Dextrose 50 % in Water (Syg) 50 ML SYRINGE IVP PRN (01:03)
[2017-10-09] MEDS ORDERED: Naloxone 0.4 MG/ML INJ IVP PRN (01:03)
[2017-10-09] MEDS ORDERED: Dextrose Gel 15 GM/37.5 ML TUBE PO PRN ×2 (01:03)
[2017-10-09] MEDS ORDERED: *HR* Heparin 5,000 UNIT/ML VIAL IV PRN (01:03)
[2017-10-09] MEDS ORDERED: 0.9 % Sodium Chloride 250 ML IVC PRN ×2 (01:03→08:26)
[2017-10-09 03:26] LABS: Basophils % 0.6 %; Eosinophils # 0.2 K/mcL (0.0-0.6); Eosinophils % 3.1 %; Hematocrit 29.4 % (35.3-44.9); Hemoglobin 9.3 g/dL (11.5-15.4); Immature Granulocytes % 1.3 % (0-4); Lymphocytes # 1.4 K/mcL (0.6-4.6); Lymphocytes % 19.9 %; Mean Corpuscular HGB Conc 31.6 g/dL (31.6-35.5); Mean Corpuscular Hemoglobin 29.6 pg (28.0-33.3); Mean Corpuscular Volume 93.6 fL (83.0-100.0); Mean Platelet Volume 9.9 fL (9.4-12.4); Monocytes # 0.6 K/mcL (0.0-1.3); Monocytes % 8.1 %; Neutrophils # 4.6 K/mcL (1.6-8.9); Nucleated Red Blood Cells 0.4 /100 WBC (0); Platelet Count 235 K/mcL (140-400); Red Blood Count 3.14 M/mcL (3.82-4.97); Red Cell Distribution Width 17.4 % (11.5-14.5)
[2017-10-09 03:47] LABS: Calcium 8.4 mg/dL (8.6-10.3); Potassium 3.7 mEq/L (3.5-5.1)
[2017-10-09 04:13] LABS: INR 1.3; Prothrombin Time 13.9 Seconds (9.4-12.1)
[2017-10-09 04:29] LABS: Activated Partial Thrombo Time 165.5 Seconds (26.0-36.0)
[2017-10-09 04:39] LABS: Heparin anti-factor XA UFH 1.08 IU/mL (0.30-0.70)
[2017-10-09] MEDS: Acetaminophen 325 MG TABLET PO PRN ×3 (05:23→21:43)
--- NOTE | 2017-10-09 08:23 | Pulmonology Progress Note ---
<AnuragMiguel M - Last Filed: 10/09/17 11:59> Date of Encounter: 10/09/17 Objective PUL Vital signs: Last Vital Signs Temp 98.6 F 10/09/17 07:31 Pulse 5 10/09/17 10:00 Resp 16 10/09/17 10:00 BP 144/80 10/09/17 10:00 Pulse Ox 100 10/09/17 10:00 Results - Laboratory Findings CBC and BMP: 10/09/17 02:56 10/09/17 02:56 PT/INR, D-dimer PT 13.9 Seconds (9.4-12.1) H 10/09/17 02:56 Abnormal lab findings: Abnormal lab results RBC 3.14 M/mcL (3.82-4.97) L 10/09/17 02:56 Hgb 9.3 g/dL (11.5-15.4) L 10/09/17 02:56 Hct 29.4 % (35.3-44.9) L 10/09/17 02:56 RDW 17.4 % (11.5-14.5) H 10/09/17 02:56 Nucleated RBCs/100 WBC 0.4 /100 WBC (0) H 10/09/17 02:56 PT 13.9 Seconds (9.4-12.1) H 10/09/17 02:56 APTT 101.8 Seconds (26.0-36.0) H 10/09/17 10:38 Heparin Anti-Xa, Unfract 1.08 IU/mL (0.30-0.70) H* 10/09/17 02:56 Sodium 132 mEq/L (136-145) L 10/09/17 02:56 Chloride 96 mEq/L (98-107) L 10/09/17 02:56 Creatinine 3.62 mg/dL (0.60-1.20) H 10/09/17 02:56 Est GFR ( Amer) 15 (> 60) L 10/09/17 02:56 Est GFR (Non-Af Amer) 12 (> 60) L 10/09/17 02:56 Calculated Osmolality 277 (280-300) L 10/09/17 02:56 Calcium 8.4 mg/dL (8.6-10.3) L 10/09/17 02:56 Venous Ioniz Calcium 1.11 mmol/L (1.15-1.35) L 10/05/17 03:32 AST 11 Units/L (13-39) L 10/06/17 04:00 ALT < 3 Units/L (7-52) L 10/06/17 04:00 Alkaline Phosphatase 111 Units/L (34-104) H 10/06/17 04:00 Troponin I 0.42 ng/mL (< 0.04) H* 10/05/17 00:46 B-Natriuretic Peptide 4044 pg/mL (Less than 100) H 10/06/17 04:00 Albumin/Globulin Ratio 1.0 (1.1-2.2) L 10/06/17 04:00 - Clinical Findings Intake & Output: Intake & Output 10/08/17 10/09/17 10/09/17 23:59 07:59 15:59 Intake Total 270 / 270 130 / 130 52 / 52 Output Total 0 / 0 0 / 0 Balance 270 / 270 130 / 130 52 / 52 Weight 71.5 kg Consult Discharge Plan - Plan Referrals: Aurelio Fong DO [Primary Care Provider] - - Attending Attestation I examined this patient and my medical decision-making was reviewed with the Resident Physician. I agree with the documented findings, disposition and treatment plan as described except to the extent set forth below. Patient seen and examined. Labs, radiology, chart personally reviewed. Agree with resident's history and physical, assessment, plan with following comments: DICE SPOTTER: Patient follows commands, patient has some confusion. Pulmonary: Acceptable oxygenation and ventilation Cardiovascular: Still awaiting for pacemaker placement by professional nursing assistant GI: Nutrition per dietary and GI prophylaxis per routine Heme: DVT prophylaxis per routine Renal; nephrology follow-up regarding hemodialysis Endorcine: blood glucose is monitored Lines: all lines checked and no evidence of infections. Coordination between cardiology, IR and nephrology regarding her lines. Skin: skin care to prevent pressure ulcers per nursing routine care <Lucian Page - Last Filed: 10/09/17 17:38> Date of Encounter: 10/09/17 Time of Encounter: 08:21 Assessment and Plan (1) Symptomatic bradycardia Current Visit: Yes Status: Acute Symptomatic bradycardia with heart rates dropping into the 30s - Monitor has showed intermittent complete heart block despite first-degree AV block found on initial EKG - Currently on dopamine; vital signs are stable at this time - Continuous cardiac monitoring with pulse ox monitoring - Pulse this morning was 77 bpm - Electrophysiology has been consulted; per electrophysiology consult note, and plan is for permanent pacemaker placement on (2) Hypotension Current Visit: Yes Status: Acute Hypotension in setting of diastolic CHF with bradycardia - Patient requires HD for fluid overload status and renal failure - Continue dopamine for pressure support - Blood pressure this morning is at 107/51 Qualifiers: Hypotension type: unspecified hypotension type Qualified Code(s): I95.9 - Hypotension, unspecified (3) Acute respiratory failure with hypoxia Current Visit: Yes Status: Acute Acute respiratory failure with hypoxia secondary to CHF and ESRD with fluid overload Echocardiogram demonstrated the following: - LVEF 55% - Small calcified echodensity that appears adherent to the anterior MV leaflet - Calcification suggests more of a chronic process - Severe mitral regurgitation - Mild-moderate tricuspid regurgitation - Severe pulmonary hypertension - Estimated RVSP is >100 mmHg - Patient is currently satting at 97% on room air - Continue to monitor vital signs (4) ESRD (end stage renal disease) Current Visit: Yes Status: Chronic ESRD on HD MWF - Had hever over weekend because HD could not be completed - Removed approximately 2.6L fluid on hever - IR has been consulted for AV graft thrombectomy - Per nephrology, patient received excellent clearance throughout the weekend with hever (5) Anemia Current Visit: No Status: Chronic 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 - Hemoglobin this mornin.3 Qualifiers: Anemia type: due to chronic kidney disease Chronic kidney disease stage: on chronic dialysis Qualified Code(s): N18.6 - End stage renal disease; D63.1 - Anemia in chronic kidney disease; D63.1 - Anemia in chronic kidney disease; Z99.2 - Dependence on renal dialysis; Z99.2 - Dependence on renal dialysis; Z99.2 - Dependence on renal dialysis; Z99.2 - Dependence on renal dialysis (6) Elevated troponin Current Visit: No Status: Acute Elevated troponin, likely secondary to demand ischemia in setting of CHF and ESRD with fluid overload - EKG negative for ischemic changes - Cardiology is on board - Continuous cardiac monitoring (7) Diabetes Current Visit: Yes Status: Chronic - Insulin sliding scale, low-dose Qualifiers: Diabetes mellitus type: type 2 Diabetes mellitus bed bug exterminator insulin use: with bed bug exterminator use Diabetes mellitus complication status: with kidney complications Diabetes mellitus complication detail: with chronic kidney disease Chronic kidney disease stage: on chronic dialysis Qualified Code(s) : E11.22 - Type 2 diabetes mellitus with diabetic chronic kidney disease; N18.6 - End stage renal disease; Z99.2 - Dependence on renal dialysis; Z99.2 - Dependence on renal dialysis; Z99.2 - Dependence on renal dialysis; N18.6 - End stage renal disease; N18.6 - End stage renal disease; N18.6 - End stage renal disease; 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 Denies having any problems today. Denies having any chest pain, palpitations, nausea, vomiting, fever, chills, dizziness, or lightheadedness. Plan is for her to have pacemaker placement on . Objective PUL Vital signs: Last Vital Signs Temp 98.6 F 10/09/17 07:31 Pulse 77 10/09/17 05:00 Resp 20 10/09/17 05:00 BP 107/51 10/09/17 03:00 Pulse Ox 97 10/09/17 05:00 General appearance: no acute distress Eyes: nonicteric ENT: oropharynx moist Neck: supple Effort: normal Auscultation: bilateral: clear Percussion: bilateral: not dull Tactile fremitus: bilateral: normal Cardiovascular: regular rate and rhythm Gastrointestinal: normoactive bowel sounds, non-distended Integumentary: normal Extremities: no cyanosis, no edema, no clubbing Musculoskeletal: no deformities, ROM normal normal mental status, non-focal exam mood appropriate, affect normal Results - Laboratory Findings CBC and BMP: 10/09/17 02:56 10/09/17 02:56 PT/INR, D-dimer PT 13.9 Seconds (9.4-12.1) H 10/09/17 02:56 Abnormal lab findings: Abnormal lab results RBC 3.14 M/mcL (3.82-4.97) L 10/09/17 02:56 Hgb 9.3 g/dL (11.5-15.4) L 10/09/17 02:56 Hct 29.4 % (35.3-44.9) L 10/09/17 02:56 RDW 17.4 % (11.5-14.5) H 10/09/17 02:56 Nucleated RBCs/100 WBC 0.4 /100 WBC (0) H 10/09/17 02:56 PT 13.9 Seconds (9.4-12.1) H 10/09/17 02:56 APTT 165.5 Seconds (26.0-36.0) H* 10/09/17 02:56 Heparin Anti-Xa, Unfract 1.08 IU/mL (0.30-0.70) H* 10/09/17 02:56 Sodium 132 mEq/L (136-145) L 10/09/17 02:56 Chloride 96 mEq/L (98-107) L 10/09/17 02:56 Creatinine 3.62 mg/dL (0.60-1.20) H 10/09/17 02:56 Est GFR ( Amer) 15 (> 60) L 10/09/17 02:56 Est GFR (Non-Af Amer) 12 (> 60) L 10/09/17 02:56 Calculated Osmolality 277 (280-300) L 10/09/17 02:56 Calcium 8.4 mg/dL (8.6-10.3) L 10/09/17 02:56 Venous Ioniz Calcium 1.11 mmol/L (1.15-1.35) L 10/05/17 03:32 AST 11 Units/L (13-39) L 10/06/17 04:00 ALT < 3 Units/L (7-52) L 10/06/17 04:00 Alkaline Phosphatase 111 Units/L (34-104) H 10/06/17 04:00 Troponin I 0.42 ng/mL (< 0.04) H* 10/05/17 00:46 B-Natriuretic Peptide 4044 pg/mL (Less than 100) H 10/06/17 04:00 Albumin/Globulin Ratio 1.0 (1.1-2.2) L 10/06/17 04:00 - Clinical Findings Intake & Output: Intake & Output 10/08/17 10/09/17 10/09/17 23:59 07:59 15:59 Intake Total 270 / 270 130 / 130 Output Total 0 / 0 0 / 0 Balance 270 / 270 130 / 130 Weight 71.5 kg
[2017-10-09] MEDS: Insulin LISPRO 300 UNITS/3 ML VIAL SQ SCH ×4 (08:59→21:44)
[2017-10-09] MEDS: Heparin 25,000 UNIT/500 ML D5W 25,000 UNIT/500 ML BAG IVC SCH (10:12)
--- NOTE | 2017-10-09 10:28 | Nephrology Progress Note ---
Date of Encounter: 10/09/17 Time of Encounter: 08:55 - Assessment and Plan (1) ESRD (end stage renal disease) Current Visit: Yes Status: Chronic She is ESRD on HD //. Will provide a short HD today to resume her // schedule. The pt poorly tolerated HD yesterday even with the Dopamine gtt flowing. I've ordered a more gentle HD with lower Qb and Qd plus minimal UF to help her ideally tolerate the HD in the setting of symptomatic bradycardia. HD should not be continued if she tolerates it hemodynamically. IR has voiced that they see a well functioning Right Permacath and putting the pt through a Permacath removal and replacement to the other side was not medically necessary. So as to not be in the middle going forward, I will provide PREBOARDER on // as a coarse wire drawer, and I defer the approach for the PPM to Cardio/EP. So it appears that the pt is not going to have the Permacath removed after contacting IR first thing this AM. See my note from yesterday, as I have already committed substantial time and efforts in trying to help with the logistics. Continue to dose renally cleared Rx for ESRD. Discussed with the RECONCILIATION ACCOUNTANT and Resident. Will follow with you. (2) Acute respiratory failure with hypoxia Current Visit: Yes Status: Acute Dyspnea has improved, and she is now off NC O2. (3) Hypotension Current Visit: Yes Status: Acute See above. Improved with dopamine drip. Qualifiers: Hypotension type: unspecified hypotension type Qualified Code(s): I95.9 - Hypotension, unspecified (4) Symptomatic bradycardia Current Visit: Yes Status: Acute See above. (5) Hyponatremia Current Visit: Yes Status: Acute Mild, and could be related to hypervolemic hyponatremia in the setting of ESRD and hx of CHF and symptomatic bradycardia. (6) Intractable nausea and vomiting Current Visit: No Status: Acute This was present at admission, and the pt reported that she's still having periodic N/V. Having received both Bee and iHD, I do not suspect this is from Uremia. Will defer to the primary team. Qualifiers: Vomiting type: unspecified Qualified Code(s): R11.2 - Nausea with vomiting , unspecified Subjective Principal diagnosis: ESRD, Bradycardia/hypotension Interval history: Pt was seen/examined in the ICU. She was smiling and reported feeling well. The RECONCILIATION ACCOUNTANT said that when the dopamine gtt is not running, her HR declines. She had HD yesterday that was problematic, and shortened d/t feeling poorly, she said. Objective - Vital Signs Vital signs: Vital Signs Temp Pulse Resp BP Pulse Ox 10/09/17 10:00 5 16 144/80 100 10/09/17 09:00 73 16 110/48 99 10/09/17 07:31 98.6 F 10/09/17 05:00 77 20 97 10/09/17 03:29 98.2 F 10/09/17 03:00 79 20 107/51 98 10/09/17 01:00 54 20 98 10/08/17 23:39 55 16 98 10/08/17 22:02 98.4 F 10/08/17 22:00 53 20 95 10/08/17 20:00 97.3 F L 10/08/17 19:30 62 10/08/17 19:00 62 20 85/29 95 10/08/17 18:33 64 16 100 10/08/17 18:14 55 16 100 10/08/17 16:44 98.4 F 75 16 120/65 100 10/08/17 16:17 77 18 100 10/08/17 15:42 62 10/08/17 15:23 67 18 111/90 99 10/08/17 13:53 98.3 F 18 115/83 10/08/17 13:30 104/58 10/08/17 13:15 102/58 10/08/17 13:00 76 20 98/60 100 10/08/17 12:45 91/55 10/08/17 12:30 93/58 10/08/17 12:26 97.7 F 10/08/17 12:15 102/71 10/08/17 12:00 75 20 105/62 99 10/08/17 11:45 123/80 10/08/17 11:30 123/73 10/08/17 11:15 121/75 10/08/17 11:00 80 20 101/68 98 10/08/17 10:45 109/67 10/08/17 10:30 105/62 Intake and Output 10/08/17 10/09/17 10/09/17 23:59 07:59 15:59 Intake Total 270 / 270 130 / 130 Output Total 0 / 0 0 / 0 Balance 270 / 270 130 / 130 Intake: IV Fluids 270 / 270 130 / 130 Heparin 25,000 UNIT/500 ML D5W 270 / 270 130 / 130 25,000 unit In 500 ml @ 14 UNIT /KG/HR 19.488 mls/hr IVC .Q24H ALIYAH Rx#:[id number] Oral 0 / 0 0 / 0 Output: Urine 0 / 0 0 / 0 Other: Meal Lunch Percent of Meal Consumed 5% Stool Size Large Stool Consistency soft formed Stool Characteristics Normal for Patient Stool Color Brown Weight 71.5 kg Blood Glucose* 122 98 - General Appearance General appearance: Present: well-developed, well-nourished, appears started age EENT: Present: ATNC, PERRL, mucous membranes moist Neck: Present: supple Respiratory: Present: clear Cardiology: Present: no edema, normal S1, normal S2 Additional Comments: reid rate Dialysis Vascular Access: Venous Catheter (Right sided Permacath appears fine with dressing that is C/D/I. No problems seen with the exit site.) Gastrointestinal: Present: normoactive bowel sounds, no tenderness, no guarding Integumentary: Present: warm and dry Neurologic: Present: no focal deficit, no asterixis, alert and oriented x3 Musculoskeletal: Present: no deformities, no erythema, no cyanosis Psychiatric: Present: mood/affect appropriate, cooperative - Lab 10/09/17 02:56 10/09/17 02:56 Most recent lab results Calcium 8.4 mg/dL (8.6-10.3) L 10/09/17 02:56 Phosphorus 3.5 mg/dL (2.7-4.5) 10/06/17 04:00 Magnesium 2.5 mg/dL (1.6-2.6) 10/06/17 04:00 Consult Discharge Plan - Plan Referrals: Aurelio Fong DO [Primary Care Provider] -
[2017-10-09] MEDS ORDERED: 0.9 % Sodium Chloride 1,000 ML ONE (12:02)
--- NOTE | 2017-10-09 15:44 | Cardiology Progress Note ---
Date of Encounter: 10/09/17 Time of Encounter: 15:40 Assessment and Plan (1) Symptomatic bradycardia Current Visit: Yes Status: Acute Syptomatic bradycardia on admission. HR noted to be in the 30's in out-patient dialysis. EKG showed sinus bradycardia. HR improved with atropine in ED. low Dopamine weaned off . HR 50-70 with intermittent second degree type I AV block seen. Reported to continue to have low heart rates when undergoing dialysis and requiring dopamine. Intermittent CHB seen earlier in stay. Planning for PPM on after dialysis catheter is removed from right chest. Echocardiogram-LVEF 55%. Normal LV chamber size, wall thickness and function. Indeterminate diastolic function. Normal right ventricular structure and function. Small calcified echodensity that appears adherent to the anterior MV leaflet. Calcification suggests more of a chronic process. Clinical correlation suggested. Severe mitral regurgitation. Mild-moderate tricuspid regurgitation. Severe pulmonary hypertension. Estimated RVSP is >100 mmHg. Stress test 09/2015- negative for ischemia, EF 48%. TSH is normal. IR recommends not moving tunneled dialysis catheter. Due to AV fistula and DVT on left including left axillary vein, PPM placement on the right is recommended. Cannot place on the right at this time due to tunneled catheter. Currently hemodynamically stable. We will continue to discuss with EP and consider possible leadless pacemaker vs left sided placement. Recommend IR consult note for input knowing DVT on left prohibiting PPM placement. NPO after midnight for possible procedure. (2) Second degree AV block, Mobitz type I Current Visit: Yes Status: Acute Intermittent second degree type I AV block. (3) Severe mitral regurgitation Current Visit: Yes Status: Acute Severe mitral regurgitation with associated severe pulmonary hypertension noted. Patient appears to represent a poor candidate for surgical intervention. Consideration could be given to MitraClip in the future. Continue to optimize volume status with dialysis. Discussion w patient/family: The assessment and plan as outlined above was discussed with the patient and/or family members who expressed understanding and agreement. All questions were answered. Thank you for involving us in the care of your patient. Please call with any questions. Subjective Principal diagnosis: ESRD, Bradycardia/hypotension Interval history: Patient planning for dialysis today. No change in permacath placement today. No new complaints. Objective Vital Signs, Last 4 Hours Temp Pulse Resp BP Pulse Ox 10/09/17 15:13 85 16 125/65 98 10/09/17 12:07 98.2 F 10/09/17 12:00 79 16 139/63 99 General: Conversant, No Apparent Distress HEENT: Atraumatic, Normocephaly, Mucus Membranes Moist Neck: No JVD, Normal carotid pulses Cardiac: Reg Rate and Rhythm, Normal S1 and S2, No Murmur, Other (2/6 murmur, ) Lungs: Normal Breath Sounds, No Wheeze, Rales, Rhonchi Neuro: Alert and responsive, No focal deficits noted Abdomen: Soft, Non-Tender Skin: No rashes noted on visualized skin, Other (graying of the skin noted) Musculoskeletal: No Chest Wall Tenderness Extremities: No Clubbing, No Cyanosis, No Edema, Normal Pulses, Other (left arm fistula) Results 10/09/17 02:56 10/09/17 02:56 Lab Results 10/08/17 10/09/17 10/09/17 17:48 02:56 02:56 WBC 6.8 Hgb 9.3 L Hct 29.4 L Plt Count 235 INR 1.3 APTT 193.8 H* D Sodium Potassium Chloride Carbon Dioxide BUN Creatinine Glucose Calcium 10/09/17 10/09/17 10/09/17 02:56 02:56 10:38 WBC Hgb Hct Plt Count INR APTT 165.5 H* 101.8 H Sodium 132 L Potassium 3.7 Chloride 96 L Carbon Dioxide 26 BUN 20 Creatinine 3.62 H Glucose 104 Calcium 8.4 L - Imaging and Cardiology Echo: report reviewed - EKG Interpretation EKG results cardiology: personally reviewed Consult Discharge Plan - Plan Referrals: Aurelio Fong DO [Primary Care Provider] -
[2017-10-10 00:52] LABS: Basophils % 0.7 %; Eosinophils # 0.2 K/mcL (0.0-0.6); Eosinophils % 3.6 %; Hematocrit 27.8 % (35.3-44.9); Immature Granulocytes % 1.8 % (0-4); Lymphocytes # 1.4 K/mcL (0.6-4.6); Lymphocytes % 25.1 %; Mean Corpuscular HGB Conc 32.4 g/dL (31.6-35.5); Mean Corpuscular Hemoglobin 30.2 pg (28.0-33.3); Mean Corpuscular Volume 93.3 fL (83.0-100.0); Monocytes # 0.5 K/mcL (0.0-1.3); Monocytes % 9.5 %; Neutrophils # 3.3 K/mcL (1.6-8.9); Platelet Count 227 K/mcL (140-400); Red Blood Count 2.98 M/mcL (3.82-4.97); Red Cell Distribution Width 17.5 % (11.5-14.5); Segmented Neutrophils % 59.3 %
[2017-10-10 01:06] LABS: INR 1.1; Prothrombin Time 12.3 Seconds (9.4-12.1)
[2017-10-10 01:13] LABS: Calcium 8.9 mg/dL (8.6-10.3); Potassium 3.6 mEq/L (3.5-5.1)
[2017-10-10] MEDS: Insulin LISPRO 300 UNITS/3 ML VIAL SQ SCH ×4 (07:21→20:16)
[2017-10-10] MEDS: Heparin 25,000 UNIT/500 ML D5W 25,000 UNIT/500 ML BAG IVC SCH (08:18)
--- NOTE | 2017-10-10 09:33 | Electrophysiology ProgressNote ---
Date of Encounter: 10/10/17 Time of Encounter: 09:30 Assessment and Plan (1) Symptomatic bradycardia Current Visit: Yes Status: Acute Per EP: Echocardiogram-LVEF 55%. Normal LV chamber size, wall thickness and function. Indeterminate diastolic function. Normal right ventricular structure and function. Small calcified echodensity that appears adherent to the anterior MV leaflet. Calcification suggests more of a chronic process. Clinical correlation suggested. Severe mitral regurgitation. Mild-moderate tricuspid regurgitation. Severe pulmonary hypertension. Estimated RVSP is >100 mmHg. Stress test 09/2015- negative for ischemia, EF 48%. TSH is normal. Previous records reviewed : "Syptomatic bradycardia on admission. HR noted to be in the 30's in out-patient dialysis. EKG showed sinus bradycardia. HR improved with atropine in ED. low Dopamine weaned off . HR 50-70 with intermittent second degree type I AV block seen. Reported to continue to have low heart rates when undergoing dialysis and requiring dopamine. Intermittent CHB seen earlier in stay. Plan was for for PPM on (today) after dialysis catheter is removed from right chest". Per Dr. Sepulveda' note: "Recommendations: Permenent AV sequential pacemaker placed from right subclavian access after tunneled dialysis catherter is removed and placed on left. Conundrum: IR is refusing to move a functioning dialysis catheter from right to left, per vocal communications with myself and the ICU team, no documentation to that opinion in the medical records. I discussed with Dr Luna this afternoon, he also declines to move the dialysis catheter, and has agreed to state rationale in medical record. I reviewed Dr. Enrique' recs for moving dialysis catheter, agree with his findings. Discussed with Dr. Garcia, the patients attending vascular surgeon, recommends against placing pacemaker/ leads on left due to L axillary thrombus, high probabilty of continued thrombosis of left upper extremity due to additional obstruction of venous return from left arm. Also discussed with EPS at [facility], Dr. Phillip Barksdale, who also recommends against placing pacing system on left for all the aforementioned reasons". Patient seen today with sister at bedside. Clinically stable and off dopamine drip. Currently sinus rhythm in the 80s. Telemetry reviewed with average heart rate 73 the past 12 hours and showed sinus rhythm with occasional second- degree type I block with longest pause 1.7 seconds. Discussed and reviewed with Dr. Sepulveda and Dr. Harry Esquivel, recommendations for pacer insertion, however unable to insert at this time due to dialysis catheter remaining in place as noted above. Discussed with hospitalist service who will review with hospitalist correctional program officer. Nephrology note reviewed. No IR note noted. Will continue to attempt to facilitate care. May warrant transfer to tertiary center. Hospitalist, patient, and family aware of plan. We will continue to follow. Discussion w patient/family: The assessment and plan as outlined above was discussed with the patient and/or family members who expressed understanding and agreement. All questions were answered. Thank you for involving us in the care of your patient. Please call with any questions. Subjective Principal diagnosis: ESRD, Bradycardia/hypotension Interval history: Patient seen with Sr. at bedside. She denies any concerns today. Denies any chest pain, short of breath, palpitations. Denies any dizziness. Objective Vital Signs, Last 4 Hours Temp Pulse Resp BP Pulse Ox 10/10/17 07:45 82 10/10/17 07:16 98.5 F 77 19 120/52 98 General: Conversant, No Apparent Distress HEENT: Atraumatic, Normocephaly, Mucus Membranes Moist Neck: No JVD, Normal carotid pulses Cardiac: Reg Rate and Rhythm, Normal S1 and S2, No Murmur Lungs: Normal Breath Sounds, No Wheeze, Rales, Rhonchi Neuro: Alert and responsive, No focal deficits noted Abdomen: Soft, Non-Tender Skin: No rashes noted on visualized skin Musculoskeletal: No Chest Wall Tenderness Extremities: No Clubbing, No Cyanosis, No Edema, Normal Pulses Results 10/10/17 00:38 10/10/17 00:38 Lab Results Laboratory Tests 10/10/17 10/10/17 10/10/17 00:38 00:38 00:38 Hgb 9.0 L Hct 27.8 L INR 1.1 Potassium 3.6 Creatinine 3.56 H Est GFR (Non-Af Amer) 13 L ITS Impressions Chest X-Ray 10/04/17 07:47 IMPRESSION: New mild pulmonary vascular congestion. New right central venous catheter with the tip in the right atrium. D/ / 10/04/2017 11:07:00 Myles Sarmiento MD / cheryl Interpreting Provider: Myles Sarmiento MD Echocardiogram 10/04/17 14:48 Impressions: LVEF 55%. Normal LV chamber size, wall thickness and function. Indeterminate diastolic function. Normal right ventricular structure and function. Small calcified echodensity that appears adherent to the anterior MV leaflet. Calcification suggests more of a chronic process. Clinical correlation suggested. Severe mitral regurgitation. Mild-moderate tricuspid regurgitation. Severe pulmonary hypertension. Estimated RVSP is >100 mmHg. Left Ventricular Wall Motion: Rest Echo Findings All wall segments showed normal motion. Findings: Study Quality * Technically adequate exam. ECG Findings * Bradycardia noted. Left Ventricle * LVEF 55%. * Normal LV chamber size, wall thickness and function. * Indeterminate diastolic function. Right Ventricle * Normal right ventricular structure and function. Left Atrium * Moderately dilated left atrium. Right Atrium * Mildly dilated right atrium. Aortic Valve * Mildly calcified aortic valve leaflets. * No aortic regurgitation. * No aortic stenosis. Mitral Valve * Mild mitral annular calcification. * Small calcified echodensity that appears adherent to the anterior MV leaflet. Calcification suggests more of a chronic process. Clinical correlation suggested. * Severe mitral regurgitation. * No mitral stenosis. Tricuspid Valve * Normal tricuspid valve structure. * Mild-moderate tricuspid regurgitation. * Severe pulmonary hypertension. * Estimated RVSP is >100 mmHg. Pulmonic Valve * Normal pulmonic valve structure and function. * No pulmonic regurgitation. Aorta * Normally sized aortic root. Pericardium * The pericardium appears normal. IVC * The IVC is not dilated. Pulmonary Artery * Normal visualized portions of the main pulmonary artery. Chest X-Ray 10/05/17 10:10 IMPRESSION: Stable appearance of the chest with appropriate positioning of right internal jugular central venous catheter since prior exam. D/ / Davon Trevino MD / Davon Trevino MD Interpreting Provider: Davon Trevino MD Active Medications Acetaminophen (Tylenol) 650 mg PO Q6HR PRN PRN Reason: Pain Stop: 04/06/18 09:10 Last Admin: 10/09/17 21:43 Dose: 650 mg Calcium Carbonate (Tums) 1,000 mg PO Q4HR PRN; Protocol PRN Reason: Heartburn Stop: 04/07/18 05:11 Dextrose/Water (Dextrose 50% (Syg)) 25 ml IVP AD PRN PRN Reason: Hypoglycemia Stop: 04/05/18 12:27 Glucagon (Glucagen) 1 mg IM ONCE PRN PRN Reason: Hypoglycemia Stop: 04/05/18 12:27 Glucose (Gluctose) 15 gm PO ONCE PRN PRN Reason: Hypoglycemia Stop: 04/05/18 12:27 Glucose (Gluctose) 30 gm PO ONCE PRN PRN Reason: Hypoglycemia Stop: 04/05/18 12:27 Heparin Sodium (Porcine) (Heparin) 0 unit IV ONCE PRN PRN Reason: SEE COMMENTS Stop: 04/05/18 17:07 Heparin Sodium (Porcine) (Heparin) 2,400 unit 35 unit/kg (2400 unit) IVP Q6H PRN PRN Reason: PROTOCOL Stop: 04/09/18 05:30 Last Admin: 10/10/17 01:24 Dose: 2,400 unit Heparin Sodium (Porcine) (Heparin) 4,900 unit 70 unit/kg (4900 unit) IVP Q6HR PRN PRN Reason: PROTOCOL Stop: 04/09/18 05:30 Dopamine HCl/Dextrose (Dopamine Premix 400mg/250ml) 400 mg in 250 mls @ 13.406 mls/hr IVC .[id number] ALIYAH; 5 MCG/KG/MIN PRN Reason: Protocol Stop: 04/06/18 08:16 Last Admin: 10/09/17 10:15 Dose: Not Given Heparin Sodium/Dextrose (Heparin 25,000 Unit/500 Ml D5w) 25,000 unit in 500 mls @ 19.488 mls/hr IVC .Q24H ALIYAH; 14 UNIT/KG/HR PRN Reason: Protocol Stop: 04/08/18 11:01 Last Titration: 10/10/17 08:36 Dose: 17.74 unit/kg/hr, 24.7 mls/hr Dextrose (Dextrose 5%) 1,000 mls @ 100 mls/hr IVC .Q10H PRN PRN Reason: HYPOGLYCEMIA Stop: 04/05/18 12:27 Sodium Chloride (0.9 % Sodium Chloride) 250 mls @ 937.5 mls/hr IVC .Q16M PRN PRN Reason: Hypotension Stop: 04/10/18 08:27 Insulin Human Lispro (Humalog) 0 units SQ TIDAC ALIYAH PRN Reason: Protocol Stop: 04/06/18 11:31 Last Admin: 10/10/17 07:21 Dose: Not Given Insulin Human Lispro (Humalog) 0 units SQ HS ALIYAH PRN Reason: Protocol Stop: 04/06/18 21:01 Last Admin: 10/09/17 21:44 Dose: Not Given Naloxone HCl (Narcan) 0.4 mg IVP Q2MIN PRN PRN Reason: SEE COMMENTS Stop: 04/05/18 11:36 Ondansetron HCl (Zofran) 4 mg IVP Q6HR PRN; Protocol PRN Reason: Nausea Stop: 04/05/18 14:23 Last Admin: 10/09/17 02:51 Dose: 4 mg - EKG Interpretation EKG results cardiology: other (Telemetry reviewed with average heart rate the past 12 hours 73, sinus rhythm with occasional episodes of second-degree AV block type I, longest +1.7 seconds.) Consult Discharge Plan - Plan Referrals: Aurelio Fong DO [Primary Care Provider] - 10/23/17 1:00 pm
[2017-10-10] MEDS: Acetaminophen 325 MG TABLET PO PRN ×2 (09:44→14:12)
--- NOTE | 2017-10-10 10:02 | Nephrology Progress Note ---
Date of Encounter: 10/10/17 Time of Encounter: 09:20 - Assessment and Plan (1) ESRD (end stage renal disease) Current Visit: Yes Status: Chronic She is ESRD on HD M/W/. She did not tolerate HD well yesterday afternoon d/t hypotension and bradycardia (the dopamine gtt was stopped b/c she no longer has CVC -- she has removed accidentally a few nights ago), and HD was stopped earlier. Since she does not have severe edema or hyperkalemia, will hold off on HD today, and will tentatively plan to continue iHD every M/W/, if she tolerates it hemodynamically. IR has voiced that they see a well functioning Right Permacath and putting the pt through a Permacath removal and replacement to the left side was not medically necessary. I agree with Cardiology that it would be helpful to have this fully documented. I appreciate Cardio/EPs exhaustive efforts to find an approach for this pt. Continue to dose renally cleared Rx for ESRD. Discussed with the GAMBLING DEALER and Resident. Will follow with you. (2) Acute respiratory failure with hypoxia Current Visit: Yes Status: Acute Dyspnea has improved, and she is now off NC O2. (3) Hypotension Current Visit: Yes Status: Acute See above. Now this tends to occur only while on HD as noted yesterday, which led to a very short HD treatment. Qualifiers: Hypotension type: unspecified hypotension type Qualified Code(s): I95.9 - Hypotension, unspecified (4) Symptomatic bradycardia Current Visit: Yes Status: Acute See above. (5) Hyponatremia Current Visit: Yes Status: Acute Mild, and could be related to hypervolemic hyponatremia in the setting of ESRD and hx of CHF and symptomatic bradycardia. (6) Intractable nausea and vomiting Current Visit: No Status: Acute This was present at admission, and the pt reported that she's still having periodic N/V. I do not suspect this is from Uremia. Qualifiers: Vomiting type: unspecified Qualified Code(s): R11.2 - Nausea with vomiting , unspecified Subjective Principal diagnosis: ESRD, Bradycardia/hypotension Interval history: Pt was seen/examined in the ICU. She was smiling and reported feeling well. The GAMBLING DEALER said that when the dopamine gtt is not running, her HR declines. She had HD yesterday that was problematic, and shortened d/t feeling poorly, she said. Objective - Vital Signs Vital signs: Vital Signs Temp Pulse Resp BP Pulse Ox 10/10/17 07:45 82 10/10/17 07:16 98.5 F 77 19 120/52 98 10/10/17 04:06 98.7 F 74 16 100/34 93 10/10/17 03:48 98.7 F 76 16 100/34 93 10/10/17 00:22 120/61 10/10/17 00:21 98.8 F 72 14 120/61 95 10/09/17 23:32 98.8 F 75 14 112/34 95 10/09/17 23:19 64 97/45 10/09/17 22:39 85/54 10/09/17 22:00 123/86 10/09/17 21:05 98.0 F 66 18 85/54 99 10/09/17 20:32 98.0 F 70 18 103/37 99 10/09/17 19:45 98.2 F 20 120/62 10/09/17 19:35 112/56 10/09/17 19:25 108/50 10/09/17 19:10 106/38 10/09/17 18:55 97/47 10/09/17 18:40 111/62 10/09/17 18:25 123/59 10/09/17 18:10 133/70 10/09/17 17:55 98.3 F 20 129/70 10/09/17 16:00 98.2 F 10/09/17 15:13 85 16 125/65 98 10/09/17 12:07 98.2 F 10/09/17 12:00 79 16 139/63 99 10/09/17 10:00 51 16 144/80 100 Intake and Output 10/09/17 10/10/17 10/10/17 23:59 07:59 15:59 Intake Total 748 / 748 300 / 300 Output Total 775 / 775 Balance -27 / -27 300 / 300 Intake: IV Fluids 148 / 148 300 / 300 10 Heparin 25,000 UNIT/500 ML D5W 148 / 148 300 / 300 25,000 unit In 500 ml @ 14 UNIT /KG/HR 19.488 mls/hr IVC .Q24H ALIYAH Rx#:[id number] Intake, Rinseback and Flushes 600 / 600 Output: Total Dialysis (HD) Output 775 / 775 Other: Weight 71.5 kg Blood Glucose* 139 112 Hemodialysis Net Fluid Removed 175 (mL) - Lab 10/10/17 00:38 10/10/17 00:38 Most recent lab results Calcium 8.9 mg/dL (8.6-10.3) 10/10/17 00:38 Phosphorus 3.5 mg/dL (2.7-4.5) 10/06/17 04:00 Magnesium 2.5 mg/dL (1.6-2.6) 10/06/17 04:00 Consult Discharge Plan - Plan Referrals: Aurelio Fong DO [Primary Care Provider] - 10/23/17 1:00 pm
--- NOTE | 2017-10-10 12:32 | Internal Med Progress Note ---
Date of Encounter: 10/10/17 Time of Encounter: 12:15 - Assessment and plan (1) Symptomatic bradycardia Current Visit: Yes Status: Acute Assessment and plan: Patient continues to have bradycardia with heart rate in the 30s. Transferred out of ICU in last 24hr. Has been weaned off dopamine drip. Patient's plan for pacemaker placement has been complicated by a disagreement between cardiology and IR. Patient has a functioning dialysis cath which cardiology want moved from the right side to the left side to facilitate pacemaker placement. So far, per signout IR is reluctant to move a functioning catheter. Spoke with IR this am who will have a conversation with cardiology regarding movement of permacath so pacemaker placement can be done by cardiology. Will follow up (2) ESRD (end stage renal disease) Current Visit: Yes Status: Chronic Assessment and plan: Patient currently receiving CVVHD. Nephrology following. Unable to do regular hemodialysis due to bradycardia. (3) History of CVA (cerebrovascular accident) Current Visit: No Status: Chronic Assessment and plan: No active problem. Is stable. Plavix was recently stopped as xarelto was started recently (4) Diabetes Current Visit: Yes Status: Chronic Assessment and plan: Blood sugars are fairly controlled. Will place patient on diabetic diet and change sliding scale to ACHS Qualifiers: Diabetes mellitus type: type 2 Diabetes mellitus half-way insulin use: with intermodal customer service use Diabetes mellitus complication status: with kidney complications Diabetes mellitus complication detail: with chronic kidney disease Chronic kidney disease stage: on chronic dialysis Qualified Code(s) : E11.22 - Type 2 diabetes mellitus with diabetic chronic kidney disease; N18.6 - End stage renal disease; Z99.2 - Dependence on renal dialysis; Z99.2 - Dependence on renal dialysis; Z99.2 - Dependence on renal dialysis; N18.6 - End stage renal disease; N18.6 - End stage renal disease; N18.6 - End stage renal disease; Z79.4 - [facility] (current) use of insulin; Z79.4 - [facility] (current ) use of insulin; Z79.4 - [facility] (current) use of insulin; 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 Resolved with dialysis . Currently saturating WNL on room air - Time Spent With Patient Total time spent is greater than 50% in coordination of care (as documented) at patient's floor/unit and/or counseling patient: - Subjective Interval history: No acute events overnight - Constitutional Vitals: Temp Pulse Resp BP Pulse Ox 98.6 F 89 19 120/52 90 10/10/17 11:57 10/10/17 11:57 10/10/17 11:57 10/10/17 07:16 10/10/17 11:57 General appearance: Present: cooperative, mild distress, A&O X 3, obese, answers questions appropriately - Head Head exam: Present: atraumatic, normocephalic - Eye Eye exam: Present: PERRL, conjuntiva pink, sclera anicteric Pupils: Present: PERRL - Neck Neck exam general surgery: Present: supple, trachea midline. Absent: lymphadenopathy - Respiratory Respiratory exam: Present: CTAB. Absent: accessory muscle use, rales, rhonchi, wheezes - Cardiovascular Cardiovascular exam: Present: RRR, +S1, +S2. Absent: diastolic murmur, gallop, rubs, systolic murmur - GI/Abdominal GI/Abdominal exam: Present: normal bowel sounds, soft, no peritoneal signs. Absent: distended, tenderness - Extremities Exam Extremities exam: Present: warm, radial pulses palpable and symmetrical. Absent : calf tenderness, cyanotic, pedal edema - Neurological Exam Neurological exam: Present: CN II-XII intact, oriented X3, no focal deficits. Absent: pronater drift, facial droop, speech deficit - Skin Skin exam: Present: dry, intact Internal Medicine: Result - Labs CBC & Chem 7: 10/10/17 00:38 10/10/17 00:38 Labs: Short CBC 10/10/17 Range/Units 00:38 WBC 5.6 (4.3-11.1) K/mcL Hgb 9.0 L (11.5-15.4) g/dL Hct 27.8 L (35.3-44.9) % Plt Count 227 (140-400) K/mcL Neutrophils # 3.3 (1.6-8.9) K/mcL BMP 10/10/17 00:38 Sodium 133 L Potassium 3.6 Chloride 97 L Carbon Dioxide 27 BUN 20 Creatinine 3.56 H Glucose 133 H Calcium 8.9 - ABG Interpretation ABG results: PT/INR, D-dimer PT 12.3 Seconds (9.4-12.1) H 10/10/17 00:38 Consult Discharge Plan - Plan Referrals: Aurelio Fong DO [Primary Care Provider] - 10/23/17 1:00 pm
--- NOTE | 2017-10-10 13:27 | Event Note ---
Date of Encounter: 10/10/17 Time of Encounter: 13:30 - Cardiology Event Note Vein Mapping 10/02/17: Impressions: Upper extremity abnormal deep exam: left Axillary vein acute thrombosis. Upper extremity abnormal superficial exam: left Basilic Upper Arm vein acute thrombosis. Upper extremity abnormal superficial exam: right Basilic Upper Arm vein age indeterrminate thrombosis. Discussed with IR, agreed to ordering a new IR consult and IR note to be completed with official recs. Vein mapping recommended by IR, previous results as noted as above. Recommend Vascular Surgery C/S for further eval and recs. Patient remains clinically stable. Will continue to eval for potential pacer once all recs received and evaluated. Patient and family agreeable. Primary service aware.
--- NOTE | 2017-10-10 15:57 | IR Progress Note ---
Vital Signs: Vital Signs/O2 Sat, Most Current Temp Pulse Resp BP Pulse Ox 98.6 F 89 19 120/52 90 10/10/17 11:57 10/10/17 11:57 10/10/17 11:57 10/10/17 07:16 10/10/17 11:57 Recent Labs: Lab Results 10/10/17 10/10/17 10/09/17 00:38 00:38 02:56 WBC 5.6 RBC 2.98 L Hgb 9.0 L Hct 27.8 L MCV 93.3 MCH 30.2 MCHC 32.4 RDW 17.5 H Plt Count 227 MPV 10.0 Neutrophils # 3.3 Lymphocytes # 1.4 Monocytes # 0.5 Eosinophils # 0.2 Basophils # 0.0 Sodium 133 L 132 L Potassium 3.6 3.7 Chloride 97 L 96 L Carbon Dioxide 27 26 BUN 20 20 Creatinine 3.56 H 3.62 H Est GFR ( Amer) 15 L 15 L Est GFR (Non-Af Amer) 13 L 12 L BUN/Creatinine Ratio 6 6 Glucose 133 H 104 Calcium 8.9 8.4 L 10/09/17 10/08/17 10/08/17 02:56 04:26 04:26 WBC 6.8 6.8 RBC 3.14 L 3.60 L Hgb 9.3 L 10.6 L Hct 29.4 L 34.3 L MCV 93.6 95.3 MCH 29.6 29.4 MCHC 31.6 30.9 L RDW 17.4 H 17.8 H Plt Count 235 264 MPV 9.9 9.9 Neutrophils # 4.6 4.8 Lymphocytes # 1.4 1.3 Monocytes # 0.6 0.5 Eosinophils # 0.2 0.2 Basophils # 0.0 0.1 Sodium 133 L Potassium 4.8 Chloride 102 Carbon Dioxide 21 L BUN 34 H Creatinine 4.67 H Est GFR ( Amer) 11 L Est GFR (Non-Af Amer) 9 L BUN/Creatinine Ratio 7 Glucose 126 H Calcium 8.9 Assessment and Plan I was asked to provide input from IR regarding Joyce Vires and vascular access. I spoke with Aj from the cardiology service. I went through all available imaging studies I could find within PACS, and noted the Impression from the vein study on 10/02 that Aj included in his note today. She currently has the tunneled RIJV approach HD catheter, and is in need of a pacemaker. There is a clotted AVG in the left forearm, that has been down for a couple of weeks. Given the length of time, I feel attempting to open this would be best through the vascular service and not through VIR given how organized the thrombus would be, and that an open thrombectomy would more likely be successful. 10/02 study showed acute Left basilic and axillary vein thrombus, and age indeterminate right basilic vein thrombus. I could not find a report to see whether the left subclavian was scanned with ultrasound and whether it is patent or thrombosed/occluded. Recommendations: I feel we need to have a good understanding of upper extremity venous patency from the wrist to the subclavian vein on the right and left arm so that we do not hinder the patients future ability to have a working upper extremity access. I'd repeat the upper extremity venous exam to look at size and patentcy of the access veins so the vascular surgeons can tell what will be the next best step regarding pts dialysis access. If the left forearm graft is unable to be salvaged, and the axillary vein thrombus cannot be treated and removed, then it may be best to consider a left chest pacer if no further access will be done in the left arm. I'm concerned that if we move our tunneled HD catheter to the left chest, and the pt gets a right chest pacer, that may cause limitations with RUE venous outflow 2/2 the chronic subclavian puncture site for the pacer causing the patient to have to dialyze through a catheter permanently. I also feel that we need to make sure that a chest wall catheter should be preserved prior to placing a groin tunneled HD catheter which has a higher risk for infection over an IJV approach chest catheter. Izaiah Busch MD VIR staff
[2017-10-11 04:44] LABS: Basophils % 0.7 %; Eosinophils # 0.2 K/mcL (0.0-0.6); Eosinophils % 3.2 %; Hemoglobin 8.6 g/dL (11.5-15.4); Immature Granulocytes % 4.1 % (0-4); Lymphocytes # 1.5 K/mcL (0.6-4.6); Lymphocytes % 25.6 %; Mean Corpuscular HGB Conc 31.9 g/dL (31.6-35.5); Mean Corpuscular Volume 94.1 fL (83.0-100.0); Mean Platelet Volume 9.8 fL (9.4-12.4); Monocytes # 0.6 K/mcL (0.0-1.3); Monocytes % 10.8 %; Neutrophils # 3.3 K/mcL (1.6-8.9); Nucleated Red Blood Cells 0.3 /100 WBC (0); Platelet Count 227 K/mcL (140-400); Red Blood Count 2.87 M/mcL (3.82-4.97); Red Cell Distribution Width 17.8 % (11.5-14.5); Segmented Neutrophils % 55.6 %
[2017-10-11] MEDS: Acetaminophen 325 MG TABLET PO PRN ×2 (05:02→19:36)
[2017-10-11] MEDS: Heparin 25,000 UNIT/500 ML D5W 25,000 UNIT/500 ML BAG IVC SCH (05:04)
[2017-10-11] MEDS ORDERED: 0.9 % Sodium Chloride 250 ML IVC PRN (07:39)
[2017-10-11] MEDS: Insulin LISPRO 300 UNITS/3 ML VIAL SQ SCH ×3 (08:35→16:08)
--- NOTE | 2017-10-11 09:26 | Electrophysiology ProgressNote ---
Date of Encounter: 10/11/17 Time of Encounter: 09:20 Assessment and Plan (1) Symptomatic bradycardia Current Visit: Yes Status: Acute Per EP: Patient remains clinically stable and off dopamine drip. IR note reviewed and noted. Vascular consult placed and note reviewed and noted. Discussed with Stain Sprayer-- plans for IR to perform vein mapping and eval other access sites. Patient currently at HD. Patient agreeable to remain NPO in case procedure can be performed today. If catheter can be relocated, will discuss with Dr. Harry Esquivel potential pacer insertion today. If unable to relocate cath site and, thus not insert pacer, patient desires transfer to outside facility for second opinion. I had a family meeting with nursing leadership present and outlined plans of care. Discussed with primary service. Further recommendations pending once IR provides updates. Patient verbalized understanding and agreed with plan. Discussion w patient/family: The assessment and plan as outlined above was discussed with the patient and/or family members who expressed understanding and agreement. All questions were answered. Thank you for involving us in the care of your patient. Please call with any questions. Subjective Principal diagnosis: ESRD, Bradycardia/hypotension Interval history: Patient away for dialysis today. Sister at bedside. RN reports no clinical changes. Patient now seen in dialysis and denies any new concerns or complaints. She denies any chest pain, shortness of breath, palpitations, dizziness. Patient reports growing frustration regarding plan of care. Objective Vital Signs, Last 4 Hours Temp Pulse Resp BP Pulse Ox 10/11/17 08:49 93 10/11/17 07:40 98.2 F 84 18 135/75 93 General: Conversant, No Apparent Distress HEENT: Atraumatic, Normocephaly, Mucus Membranes Moist Neck: No JVD, Normal carotid pulses Cardiac: Reg Rate and Rhythm, Normal S1 and S2, No Murmur Lungs: Normal Breath Sounds, No Wheeze, Rales, Rhonchi Neuro: Alert and responsive, No focal deficits noted Abdomen: Soft, Non-Tender Skin: No rashes noted on visualized skin Musculoskeletal: No Chest Wall Tenderness Extremities: No Clubbing, No Cyanosis, No Edema, Normal Pulses Results 10/11/17 04:06 10/11/17 04:06 Lab Results Laboratory Tests 10/11/17 10/11/17 04:06 04:06 Hgb 8.6 L Hct 27.0 L Creatinine 5.65 H Est GFR (Non-Af Amer) 7 L Active Medications Acetaminophen (Tylenol) 650 mg PO Q4HR PRN PRN Reason: Pain Stop: 04/11/18 16:01 Last Admin: 10/11/17 05:02 Dose: 650 mg Calcium Carbonate (Tums) 1,000 mg PO Q4HR PRN; Protocol PRN Reason: Heartburn Stop: 04/07/18 05:11 Last Admin: 10/10/17 14:15 Dose: 1,000 mg Dextrose/Water (Dextrose 50% (Syg)) 25 ml IVP AD PRN PRN Reason: Hypoglycemia Stop: 04/05/18 12:27 Glucagon (Glucagen) 1 mg IM ONCE PRN PRN Reason: Hypoglycemia Stop: 04/05/18 12:27 Glucose (Gluctose) 15 gm PO ONCE PRN PRN Reason: Hypoglycemia Stop: 04/05/18 12:27 Glucose (Gluctose) 30 gm PO ONCE PRN PRN Reason: Hypoglycemia Stop: 04/05/18 12:27 Heparin Sodium (Porcine) (Heparin) 0 unit IV ONCE PRN PRN Reason: SEE COMMENTS Stop: 04/05/18 17:07 Heparin Sodium (Porcine) (Heparin) 2,400 unit 35 unit/kg (2400 unit) IVP Q6H PRN PRN Reason: PROTOCOL Stop: 04/09/18 05:30 Last Admin: 10/10/17 01:24 Dose: 2,400 unit Heparin Sodium (Porcine) (Heparin) 4,900 unit 70 unit/kg (4900 unit) IVP Q6HR PRN PRN Reason: PROTOCOL Stop: 04/09/18 05:30 Last Admin: 10/11/17 05:03 Dose: 4,900 unit Dopamine HCl/Dextrose (Dopamine Premix 400mg/250ml) 400 mg in 250 mls @ 13.406 mls/hr IVC .[id number] ALIYAH; 5 MCG/KG/MIN PRN Reason: Protocol Stop: 04/06/18 08:16 Last Admin: 10/09/17 10:15 Dose: Not Given Heparin Sodium/Dextrose (Heparin 25,000 Unit/500 Ml D5w) 25,000 unit in 500 mls @ 19.488 mls/hr IVC .Q24H ALIYAH; 14 UNIT/KG/HR PRN Reason: Protocol Stop: 04/08/18 11:01 Last Admin: 10/11/17 05:04 Dose: 21.74 unit/kg/hr, 30.262 mls/hr Dextrose (Dextrose 5%) 1,000 mls @ 100 mls/hr IVC .Q10H PRN PRN Reason: HYPOGLYCEMIA Stop: 04/05/18 12:27 Sodium Chloride (0.9 % Sodium Chloride) 250 mls @ 937.5 mls/hr IVC .Q16M PRN PRN Reason: Hypotension Stop: 04/12/18 07:40 Insulin Human Lispro (Humalog) 0 units SQ TIDAC ALIYAH PRN Reason: Protocol Stop: 04/06/18 11:31 Last Admin: 10/11/17 08:35 Dose: Not Given Insulin Human Lispro (Humalog) 0 units SQ HS ALIYAH PRN Reason: Protocol Stop: 04/06/18 21:01 Last Admin: 10/10/17 20:16 Dose: Not Given Naloxone HCl (Narcan) 0.4 mg IVP Q2MIN PRN PRN Reason: SEE COMMENTS Stop: 04/05/18 11:36 Ondansetron HCl (Zofran) 4 mg IVP Q6HR PRN; Protocol PRN Reason: Nausea Stop: 04/05/18 14:23 Last Admin: 10/09/17 02:51 Dose: 4 mg - EKG Interpretation EKG results cardiology: other (Currently sinus rhythm on telemetry. Telemetry reviewed with average heart rate is 12 hours 81, longest +1.9 seconds, occasional second-degree type I block.) Consult Discharge Plan - Plan Referrals: Aurelio Fong DO [Primary Care Provider] - 10/23/17 1:00 pm
--- NOTE | 2017-10-11 09:48 | Vascular/Endovasc Consult Note ---
Date of Encounter: 10/11/17 Time of Encounter: 09:42 Assessment and Plan (1) DVT of left axillary vein, acute Current Visit: Yes Status: Acute Patient requires anticoagulation therapy for the left axillary vein DVT. (2) Superficial venous thrombosis of left upper extremity Current Visit: Yes Status: Acute Left basilic vein superficial thrombophlebitis. Because of this thrombosis and the axillary vein DVT the only runoff feasible for a left forearm AV shunt would be the cephalic vein which be an adequate to maintain patency. Therefore surgical thrombectomy is not indicated at this time. Vein mapping was performed in the recent past and it is anticipate the patient would require right upper extremity vascular access creation. The concern now is placing the pacemaker and manipulating the access sites. There is a divergence of opinion in regards to how this can best be managed. From a vascular surgery perspective we have little to offer at this time for intervention as the left upper extremity is a poor choice for any further manipulation and the patient will require a new right upper extremity access creation. (3) CKD (chronic kidney disease) stage 5, GFR less than 15 ml/min Current Visit: Yes Status: Chronic Patient has chronic renal failure requiring ongoing renal dialysis. - History of Present Illness Consult date: 10/11/17 Requesting physician: Aj Tran Consult reason: ESRD/cardiac arrthymias History of present illness: Ms. Aguilar is a 71 year old female With a variety of medical problems but at this time is having cardiac issues that would warrant placement of a pacemaker. It is well documented in the chart the indications for this. Unfortunately in addition to the cardiac issues she has long-standing renal failure. She requires renal replacement therapy with dialysis. Her left forearm AV shunt is thrombosed. She was evaluated approximately 10 days ago and found to have an acute left axillary vein DVT and superficial thrombophlebitis with occlusion of the left basilic vein. Thus surgical thrombectomy and reestablishing flow through the left forearm AV shunt is contraindicated as the patency rates are extremely low and it is improbable that any success would be obtained with this maneuver. Therefore the patient was recommended to undergo anticoagulation therapy. She is to continue dialysis treatment through a catheter-based access. Past Med Surg Social Fam HX - Past Medical History Medical history: CVA, DVT, diabetes, dialysis, hyperlipidemia, hypertension, renal disease, other Psychiatric history: no psych history - Past Surgical History Surgical History: cholecystectomy - Social History Smoking Status: Never smoker Smokeless Tobacco Status: No Alcohol use: none Drug use: none - Family History Mother Living Status: Hx Family Cardiac Disorders: Yes Medications and Allergies Rivaroxaban [Xarelto] 20 mg PO DAILY 10/04/17 [History] 3 Allergy/AdvReac Type Severity Reaction Status Date / Time adhesive Allergy Rash Verified 10/04/17 08:42 Beta-Blockers Allergy Hallucinati Verified 10/04/17 08:42 (Beta-Adrenergic Bloc ng metoprolol [From Toprol XL] Allergy Hallucinati Verified 10/04/17 08:42 ng lisinopril AdvReac Intermediate Hallucinati Verified 10/04/17 08:42 ng acetaminophen [From Percocet] AdvReac Nausea Verified 10/04/17 08:42 Oxycodone [From Percocet] AdvReac Nausea Verified 10/04/17 08:42 tramadol AdvReac Vomiting Verified 10/04/17 08:42 All Systems Review: The remainder of the systems were reviewed and are negative Exam Vital Signs, Last 4 Hours Temp Pulse Resp BP Pulse Ox 10/11/17 08:49 93 10/11/17 07:40 98.2 F 84 18 135/75 93 Consult Discharge Plan - Plan Referrals: Aurelio Fong DO [Primary Care Provider] - 10/23/17 1:00 pm
[2017-10-11] MEDS ORDERED: traMADol 50 MG TABLET PO PRN (11:06)
[2017-10-11] MEDS: Gabapentin 100 MG CAPSULE PO SCH ×3 (11:53→19:36)
[2017-10-11 13:28] LABS: Activated Partial Thrombo Time 168.9 Seconds (26.0-36.0)
[2017-10-11 13:33] LABS: Heparin anti-factor XA UFH 0.82 IU/mL (0.30-0.70)
[2017-10-11] MEDS ORDERED: Heparin 1,000 UNITS/500 mL 500 ML ONE (13:59)
[2017-10-11] MEDS ORDERED: 0.9 % Sodium Chloride 500 ML ONE ×2 (13:59→16:28)
--- NOTE | 2017-10-11 14:27 | Nephrology Progress Note ---
Date of Encounter: 10/11/17 Time of Encounter: 14:25 - Assessment and Plan (1) ESRD (end stage renal disease) Current Visit: Yes Status: Chronic HD MWF. Renal vitamins. Renal dose medications. Renal diet. Additional dialysis and ultrafiltration as needed. Seen on dialysis today. (2) Symptomatic bradycardia Current Visit: Yes Status: Acute Management per cardiology. Patient is awaiting a pacemaker placement. (3) Diabetes Current Visit: Yes Status: Chronic Per primary team. 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 insulin use: with remote computer terminal operator use Diabetes mellitus complication status: with kidney complications Diabetes mellitus complication detail: with chronic kidney disease Chronic kidney disease stage: on chronic dialysis Qualified Code(s) : E11.22 - Type 2 diabetes mellitus with diabetic chronic kidney disease; N18.6 - End stage renal disease; Z99.2 - Dependence on renal dialysis; Z99.2 - Dependence on renal dialysis; Z99.2 - Dependence on renal dialysis; N18.6 - End stage renal disease; N18.6 - End stage renal disease; N18.6 - End stage renal disease; Z79.4 - FPC (current) use of insulin; Z79.4 - FPC (current ) use of insulin; Z79.4 - moth exterminator (current) use of insulin; Z79.4 - FPC (current) use of insulin; Z99.2 - Dependence on renal dialysis (4) Anemia Current Visit: No Status: Chronic Monitor hemoglobin. Transfuse as needed. Qualifiers: Anemia type: due to chronic kidney disease Chronic kidney disease stage: on chronic dialysis Qualified Code(s): N18.6 - End stage renal disease; D63.1 - Anemia in chronic kidney disease; D63.1 - Anemia in chronic kidney disease; Z99.2 - Dependence on renal dialysis; Z99.2 - Dependence on renal dialysis; Z99.2 - Dependence on renal dialysis; Z99.2 - Dependence on renal dialysis Subjective Principal diagnosis: ESRD, Bradycardia/hypotension Interval history: The patient was seen on dialysis. She has no new complaint. She is frustrated with how long she has been in hospital. Objective - Vital Signs Vital signs: Vital Signs Temp Pulse Resp BP Pulse Ox 10/11/17 13:33 97.5 F L 73 18 97 10/11/17 12:35 145/68 10/11/17 12:20 147/72 04/27/18 12:05 129/73 10/11/17 12:00 82 10/11/17 11:50 137/64 10/11/17 11:35 129/58 10/11/17 11:20 123/61 10/11/17 11:05 117/72 10/11/17 10:50 127/55 10/11/17 10:35 135/72 10/11/17 10:20 134/57 10/11/17 10:05 135/79 10/11/17 09:50 97.2 F L 18 131/62 10/11/17 08:49 93 10/11/17 07:40 98.2 F 84 18 135/75 93 10/11/17 04:18 61 10/11/17 04:09 73 16 129/80 100 10/11/17 00:36 97.9 F 77 17 133/76 99 10/11/17 00:05 80 10/10/17 19:58 63 10/10/17 18:58 98.1 F 84 16 98/56 95 10/10/17 16:22 98.7 F 73 20 101/53 98 Intake and Output 10/10/17 10/11/17 10/11/17 23:59 07:59 15:59 Intake Total 240 / 240 314 / 314 700 / 700 Balance 240 / 240 314 / 314 700 / 700 Intake: IV Fluids 314 / 314 100 / 100 Heparin 25,000 UNIT/500 ML D5W 314 / 314 100 / 100 25,000 unit In 500 ml @ 14 UNIT /KG/HR 19.488 mls/hr IVC .Q24H [facility] Rx#:[id number] Oral 240 / 240 0 / 0 Intake, Rinseback and Flushes 600 / 600 Other: Meal Lunch npo Percent of Meal Consumed 75% 0% # Urine Diapers 1 Blood Glucose* 104 116 91 Hemodialysis Net Fluid Removed 1350 (mL) - General Appearance General appearance: Present: well-developed EENT: Present: ATNC Cardiology: Present: no edema, regular rate Dialysis Vascular Access: Venous Catheter Neurologic: Present: alert and oriented x3 Psychiatric: Present: mood/affect appropriate - Lab 10/11/17 04:06 10/11/17 04:06 Most recent lab results Calcium 9.0 mg/dL (8.6-10.3) 10/11/17 04:06 Phosphorus 3.5 mg/dL (2.7-4.5) 10/06/17 04:00 Magnesium 2.5 mg/dL (1.6-2.6) 10/06/17 04:00 Consult Discharge Plan - Plan Referrals: Aurelio Fong DO [Primary Care Provider] - 10/23/17 1:00 pm
--- NOTE | 2017-10-11 14:48 | Internal Med Progress Note ---
Date of Encounter: 10/11/17 Time of Encounter: 14:30 - Assessment and plan (1) Symptomatic bradycardia Current Visit: Yes Status: Acute Assessment and plan: Patient continues to have bradycardia with heart rate in the 30s. Transferred out of ICU in last 24hr. Has been weaned off dopamine drip. Patient's plan for pacemaker placement has been complicated by a disagreement between cardiology and IR. Patient has a functioning dialysis cath which cardiology want moved from the right side to the left side to facilitate pacemaker placement. So far, per signout IR is reluctant to move a functioning catheter. Spoke with IR this am who will have a conversation with cardiology regarding movement of permacath so pacemaker placement can be done by cardiology. Will follow up 10/11. IR plan for vein mapping and will determine if catheter can be moved. Cardiology and IR following (2) ESRD (end stage renal disease) Current Visit: Yes Status: Chronic Assessment and plan: Patient currently receiving CVVHD. Nephrology following. Unable to do regular hemodialysis due to bradycardia. (3) History of CVA (cerebrovascular accident) Current Visit: No Status: Chronic Assessment and plan: No active problem. Is stable. Plavix was recently stopped as xarelto was started recently (4) Diabetes Current Visit: Yes Status: Chronic Assessment and plan: Blood sugars are fairly controlled. 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: with petroleum terminal plant operator use Diabetes mellitus complication status: with kidney complications Diabetes mellitus complication detail: with chronic kidney disease Chronic kidney disease stage: on chronic dialysis Qualified Code(s) : E11.22 - Type 2 diabetes mellitus with diabetic chronic kidney disease; N18.6 - End stage renal disease; Z99.2 - Dependence on renal dialysis; Z99.2 - Dependence on renal dialysis; Z99.2 - Dependence on renal dialysis; N18.6 - End stage renal disease; N18.6 - End stage renal disease; N18.6 - End stage renal disease; Z79.4 - termite control service representative (current) use of insulin; Z79.4 - termite control service representative (current ) use of insulin; Z79.4 - group home (current) use of insulin; Z79.4 - termite control service representative (current) use of insulin; Z99.2 - Dependence on renal dialysis (5) DVT (deep venous thrombosis) Current Visit: Yes Status: Acute Assessment and plan: Continue Xarelto Qualifiers: DVT location: upper extremity Affected thrombotic vein of extremity: unspecified vein of extremity Chronicity: acute Laterality: left Qualified Code(s): I82.622 - Acute embolism and thrombosis of deep veins of left upper extremity (6) Acute respiratory failure with hypoxia Current Visit: Yes Status: Acute Assessment and plan: [place] 2/2 to ESRD and diastolic CHF. Resolved with dialysis . Currently saturating WNL on room air - Time Spent With Patient Total time spent is greater than 50% in coordination of care (as documented) at patient's floor/unit and/or counseling patient: - Subjective Interval history: No acute events overnight - Constitutional Vitals: Temp Pulse Resp BP Pulse Ox 97.5 F L 73 18 148/72 97 10/11/17 13:33 10/11/17 13:33 10/11/17 13:33 10/11/17 12:50 10/11/17 13:33 General appearance: Present: cooperative, mild distress, A&O X 3, obese, answers questions appropriately - Head Head exam: Present: atraumatic, normocephalic - Eye Eye exam: Present: PERRL, conjuntiva pink, sclera anicteric Pupils: Present: PERRL - Neck Neck exam general surgery: Present: supple, trachea midline. Absent: lymphadenopathy - Respiratory Respiratory exam: Present: CTAB. Absent: accessory muscle use, rales, rhonchi, wheezes - Cardiovascular Cardiovascular exam: Present: RRR, +S1, +S2. Absent: diastolic murmur, gallop, rubs, systolic murmur - GI/Abdominal GI/Abdominal exam: Present: normal bowel sounds, soft, no peritoneal signs. Absent: distended, tenderness - Extremities Exam Extremities exam: Present: warm, radial pulses palpable and symmetrical. Absent : calf tenderness, cyanotic, pedal edema - Neurological Exam Neurological exam: Present: CN II-XII intact, oriented X3, no focal deficits. Absent: pronater drift, facial droop, speech deficit - Skin Skin exam: Present: dry, intact Internal Medicine: Result - Labs CBC & Chem 7: 10/11/17 04:06 10/11/17 04:06 Labs: Short CBC 10/11/17 Range/Units 04:06 WBC 5.9 (4.3-11.1) K/mcL Hgb 8.6 L (11.5-15.4) g/dL Hct 27.0 L (35.3-44.9) % Plt Count 227 (140-400) K/mcL Neutrophils # 3.3 (1.6-8.9) K/mcL BMP 10/11/17 04:06 Sodium 134 L Potassium 4.0 Chloride 96 L Carbon Dioxide 25 BUN 34 H Creatinine 5.65 H Glucose 105 Calcium 9.0 - ABG Interpretation ABG results: PT/INR, D-dimer PT 12.3 Seconds (9.4-12.1) H 10/10/17 00:38 Consult Discharge Plan - Plan Referrals: Aurelio Fong DO [Primary Care Provider] - 10/23/17 1:00 pm
--- NOTE | 2017-10-11 15:33 | IR Procedure Note ---
Date of procedure: 10/11/17 Consent Obtained: Written consent Timeout: Correct patient and procedure verified, Correct site verified, Time out performed, Skin prep completed Indications: Question of venous occlusion of the left subclavian vein Procedure Performed: left upper extremity venogram Was there an speech language pathologist assistant present: No Site/Technique: 5F catheter was advanced via the rt femoral approach Results/Findings: Normal left axillary, subclavian and innominate veins. Estimated blood loss (cc): 0 Complications: None; Tolerated procedure well Post Procedure Treatment Plan: recovery Specimen: none
--- NOTE | 2017-10-11 15:40 | IR Progress Note ---
Vital Signs: Vital Signs/O2 Sat, Most Current Temp Pulse Resp BP Pulse Ox 97.5 F L 73 18 148/72 97 10/11/17 13:33 10/11/17 13:33 10/11/17 13:33 10/11/17 12:50 10/11/17 13:33 Recent Labs: Lab Results 10/11/17 10/11/17 10/10/17 04:06 04:06 00:38 WBC 5.9 RBC 2.87 L Hgb 8.6 L Hct 27.0 L MCV 94.1 MCH 30.0 MCHC 31.9 RDW 17.8 H Plt Count 227 MPV 9.8 Neutrophils # 3.3 Lymphocytes # 1.5 Monocytes # 0.6 Eosinophils # 0.2 Basophils # 0.0 Sodium 134 L 133 L Potassium 4.0 3.6 Chloride 96 L 97 L Carbon Dioxide 25 27 BUN 34 H 20 Creatinine 5.65 H 3.56 H Est GFR ( Amer) 9 L 15 L Est GFR (Non-Af Amer) 7 L 13 L BUN/Creatinine Ratio 6 6 Glucose 105 133 H Calcium 9.0 8.9 10/10/17 10/09/17 10/09/17 00:38 02:56 02:56 WBC 5.6 6.8 RBC 2.98 L 3.14 L Hgb 9.0 L 9.3 L Hct 27.8 L 29.4 L MCV 93.3 93.6 MCH 30.2 29.6 MCHC 32.4 31.6 RDW 17.5 H 17.4 H Plt Count 227 235 MPV 10.0 9.9 Neutrophils # 3.3 4.6 Lymphocytes # 1.4 1.4 Monocytes # 0.5 0.6 Eosinophils # 0.2 0.2 Basophils # 0.0 0.0 Sodium 132 L Potassium 3.7 Chloride 96 L Carbon Dioxide 26 BUN 20 Creatinine 3.62 H Est GFR ( Amer) 15 L Est GFR (Non-Af Amer) 12 L BUN/Creatinine Ratio 6 Glucose 104 Calcium 8.4 L Assessment and Plan A venogram was performed of the left upper extremity showed normal left axillary , subclavian and innominate veins. No evidence of DVT. No impediment to placing a left sided pacemaker. This was discussed with Dr. Esquivel from Cardiology.
--- NOTE | 2017-10-11 15:57 | Event Note ---
Date of Encounter: 10/11/17 Time of Encounter: 16:00 - Cardiology Event Note Interventional radiology discuss results with Dr. Harry Esquivel. Dr. Harry Esquivel discussed results with vascular surgery Dr. Garcia. Plan for pacer insertion this evening. Patient and family verbalized understanding and agreed with plan. All questions answered.
[2017-10-11] MEDS ORDERED: Water for inj. (sterile) 10 ML IV ONE (16:27)
[2017-10-11] MEDS ORDERED: 0.9 % Sodium Chloride 1,000 ML ONE (16:27)
--- NOTE | 2017-10-11 17:15 | Pre-Sedation Evaluation ---
Pre-sedation evaluation - Pre-sedation checklist Date of procedure: 10/11/17 Procedure: fistulagram Recent Vitals: Last Vital Signs Temp 97.9 F 10/11/17 15:37 Pulse 94 10/11/17 16:21 Resp 18 10/11/17 15:37 BP 137/88 10/11/17 15:37 Pulse Ox 97 10/11/17 15:37 H&P (including ROS) documented in medical record: Yes Previous reaction to sedatives/anesthetics: No Dietary Status: NPO after Midnight Airway Assessment: Patient can open mouth completely, TMJ function normal, Micrognathia (under-bite, receding chin) absent Dentition: poor dentition Possible difficult airway: No ASA Classification *see protocol: CLASS II-Mild systemic disease Plan of Care: Pt appropriate candidate for procedure/moderate/conscious sedation , Risks/benefits of procedure/sedation discussed w/ patient/family
[2017-10-11] MEDS ORDERED: *HR* FentaNYL (PF) 100 MCG/2 ML VIAL ONE (17:21)
[2017-10-11] MEDS ORDERED: *HR* Midazolam HCl 2 MG/2 ML VIAL ONE (17:21)
--- NOTE | 2017-10-11 19:19 | Electrocardiograph Report ---
[place] [id number] Test Date: 2017-10-09 Pat Name: Joyce Aguilar Department: 109 Room: 2N15 Gender: F Structurer: [id number] : 1945 Requested By: Lucian Page Order Number: [id number] Reading MD: Ankita Esquivel Measurements Intervals [place] Rate: 74 P: 12 NC: 190 QRS: -51 QRSD: 149 T: 35 QT: 465 QTc: 492 Interpretive Statements SINUS RHYTHM WITH SINUS ARRHYTHMIA MARKED LEFT AXIS DEVIATION LEFT BUNDLE BRANCH BLOCK Electronically Signed On 10-11-2017 19:17:39 EDT by Ankita Esquivel
[2017-10-11] MEDS ORDERED: 0.9 % Sodium Chloride 250 ML ONE (20:43)
[2017-10-11] MEDS: CeFAZolin Pre 2,000 MG/100 ML 2,000 MG/100 ML BAG IVPB SCH (23:58)
[2017-10-12] MEDS: Insulin LISPRO 300 UNITS/3 ML VIAL SQ SCH ×5 (00:41→21:45)
[2017-10-12] MEDS: Gabapentin 100 MG CAPSULE PO SCH ×3 (08:05→19:46)
[2017-10-12] MEDS: CeFAZolin Pre 2,000 MG/100 ML 2,000 MG/100 ML BAG IVPB SCH (08:06)
--- NOTE | 2017-10-12 09:52 | Discharge Summary ---
- NOTES TO OUTPATIENT PROVIDER Notes to Outpatient Provider: follow up with nephrology and cardiology Orders not resulted at time of discharge: Pending orders 10/11/17 IR venogram UE LT [IR] Routine IR venogram caval superior [IR] Routine 10/11/17 15:38 CL Insert Permanent Pacemaker [CL] Routine 10/12/17 06:00 XR chest 2V [XR] Routine 10/12/17 11:30 PTT [Activated Partial Thrombo Time] [COAG] Timed Date of Encounter: 10/12/17 Time of Encounter: 09:50 - Discharge Diagnosis (1) Symptomatic bradycardia Priority: Primary Status: Acute Assessment and Plan: Patient is s/p pacemaker placement. Tolerated procedure well with no complications. Post procedure cxr showed no pneumothorax. Can be d/c once cleared by cardiology (2) ESRD (end stage renal disease) Priority: Secondary Status: Chronic Assessment and Plan: Patient currently receiving CVVHD. Nephrology following. Continue regular dialysis per renal. (3) History of CVA (cerebrovascular accident) Priority: Secondary Status: Chronic Assessment and Plan: No active problem. Is stable. Plavix was recently stopped as xarelto was started recently (4) Diabetes Priority: Secondary Status: Chronic Assessment and Plan: Blood sugars are fairly controlled. 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 insulin use: with custodial use Diabetes mellitus complication status: with kidney complications Diabetes mellitus complication detail: with chronic kidney disease Chronic kidney disease stage: on chronic dialysis Qualified Code(s) : E11.22 - Type 2 diabetes mellitus with diabetic chronic kidney disease; N18.6 - End stage renal disease; Z99.2 - Dependence on renal dialysis; Z99.2 - Dependence on renal dialysis; Z99.2 - Dependence on renal dialysis; N18.6 - End stage renal disease; N18.6 - End stage renal disease; N18.6 - End stage renal disease; Z79.4 - terminal carman (current) use of insulin; Z79.4 - nursing home (current ) use of insulin; Z79.4 - nursing home (current) use of insulin; Z79.4 - nursing home (current) use of insulin; Z99.2 - Dependence on renal dialysis (5) DVT (deep venous thrombosis) Priority: Secondary Status: Acute Assessment and Plan: Continue Xarelto Qualifiers: DVT location: upper extremity Affected thrombotic vein of extremity: unspecified vein of extremity Chronicity: acute Laterality: left Qualified Code(s): I82.622 - Acute embolism and thrombosis of deep veins of left upper extremity (6) Acute respiratory failure with hypoxia Priority: Secondary Status: Acute Assessment and Plan: Likley 2/2 to ESRD and diastolic CHF. Resolved with dialysis . Currently saturating WNL on room air Hospital course: Ms. Aguilar is a 71 year old female - Time Spent with Patient Total time spent providing and/or coordinating discharge services: - Discharge Medications Home Medications: Rivaroxaban [Xarelto] 20 mg PO DAILY 10/04/17 [History] Allergies/Adverse Reactions: 3 Allergy/AdvReac Type Severity Reaction Status Date / Time adhesive Allergy Rash Verified 10/04/17 08:42 Beta-Blockers Allergy Hallucinati Verified 10/04/17 08:42 (Beta-Adrenergic Bloc ng metoprolol [From Toprol XL] Allergy Hallucinati Verified 10/04/17 08:42 ng lisinopril AdvReac Intermediate Hallucinati Verified 10/04/17 08:42 ng acetaminophen [From Percocet] AdvReac Nausea Verified 10/04/17 08:42 Oxycodone [From Percocet] AdvReac Nausea Verified 10/04/17 08:42 tramadol AdvReac Vomiting Verified 10/04/17 08:42 Date of admission: 10/04/17 14:41 Primary care physician: Aurelio Fong DO Consults: 10/05/17 08:55 Consult to Pulmonology [CONS] Routine Consulting Provider: Pulm Crit Care [facility] Sleep Grawn Reason for Consult: ICU management/ bradycardia, ESRD Time Notified: 08:56 Call Completed: Yes 10/09/17 08:30 Consult to Dialysis [CONS] ONCE 10/09/17 09:05 Consult to Electrophysiology (EP) [CONS] Routine Consulting Provider: Electrophysiology Shell Reason for Consult: Pacemaker placement Call Completed: No Consult to Nephrology [CONS] Routine Consulting Provider: Kidney Grawn/JULIA/SUMIT/SKYLER Reason for Consult: End-stage renal disease Call Completed: Yes 10/10/17 13:23 Consult to Interventional Radiology [CONS] Routine Consulting Provider: Radiology Interventional Cols Reason for Consult: Discussed with IR-- agreed to consult to evaluate and document IR recs Call Completed: Yes 10/11/17 07:45 Consult to Dialysis [CONS] ONCE 10/11/17 09:43 Consult to Vascular Surgery [CONS] Routine Consulting Provider: Vascular Surgery Shell Reason for Consult: eval/recs regarding access for pacer Call Completed: Yes 10/12/17 08:44 Consult to Occupational Therapy [CONS] Routine Comment: Evaluate, develop and implement POC Reason for Consult: weakness Does patient have active BEDREST order?: No Is patient medically & hemodynamically stable?: Yes Patient assessed for mobility or mobilized this visit?: No Consult to Physical Therapy [CONS] Routine Comment: Evaluate, develop and implement POC Reason for Consult: weakness Does patient have active BEDREST order?: No Is patient medically & hemodynamically stable?: Yes Patient assessed for mobility or mobilized this visit?: Yes - Constitutional Vitals: Temp Pulse Resp BP Pulse Ox 99 F 81 16 129/83 95 10/12/17 08:00 10/12/17 08:35 10/12/17 08:00 10/12/17 08:00 10/12/17 08:00 General appearance: Present: cooperative, mild distress, A&O X 3, obese, answers questions appropriately - Head Head exam: Present: atraumatic, normocephalic - Eye Eye exam: Present: PERRL, conjuntiva pink, sclera anicteric Pupils: Present: PERRL - Neck Neck exam general surgery: Present: supple, trachea midline. Absent: lymphadenopathy - Respiratory Respiratory exam: Present: CTAB. Absent: accessory muscle use, rales, rhonchi, wheezes - Cardiovascular Cardiovascular exam: Present: RRR, +S1, +S2. Absent: diastolic murmur, gallop, rubs, systolic murmur - GI/Abdominal GI/Abdominal exam: Present: normal bowel sounds, soft, no peritoneal signs. Absent: distended, tenderness - Extremities Exam Extremities exam: Present: warm, radial pulses palpable and symmetrical. Absent : calf tenderness, cyanotic, pedal edema - Neurological Exam Neurological exam: Present: CN II-XII intact, oriented X3, no focal deficits. Absent: pronater drift, facial droop, speech deficit - Skin Skin exam: Present: dry, intact - Patient Status Disposition: Home, Self-Care Condition: Good Overall status at discharge: patient is back to baseline - Discharge Instructions Follow Up With: Aurelio Fong DO [Primary Care Provider] - 10/23/17 1:00 pm
[2017-10-12] MEDS: Heparin 25,000 UNIT/500 ML D5W 25,000 UNIT/500 ML BAG IVC SCH ×2 (10:14→10:16)
--- NOTE | 2017-10-12 10:51 | Nephrology Progress Note ---
Date of Encounter: 10/12/17 Time of Encounter: 10:50 - Assessment and Plan (1) ESRD (end stage renal disease) Current Visit: Yes Status: Chronic HD MWF. Renal vitamins. Renal dose medications. Renal diet. Additional dialysis and ultrafiltration as needed. (2) Symptomatic bradycardia Current Visit: Yes Status: Acute Management per cardiology. s/p pacemaker placement . (3) Diabetes Current Visit: Yes Status: Chronic Per primary team. Qualifiers: Diabetes mellitus type: type 2 Diabetes mellitus director long term care insulin use: with director long term care use Diabetes mellitus complication status: with kidney complications Diabetes mellitus complication detail: with chronic kidney disease Chronic kidney disease stage: on chronic dialysis Qualified Code(s) : E11.22 - Type 2 diabetes mellitus with diabetic chronic kidney disease; N18.6 - End stage renal disease; Z99.2 - Dependence on renal dialysis; Z99.2 - Dependence on renal dialysis; Z99.2 - Dependence on renal dialysis; N18.6 - End stage renal disease; N18.6 - End stage renal disease; N18.6 - End stage renal disease; Z79.4 - alf (current) use of insulin; Z79.4 - long term care social worker (current ) use of insulin; Z79.4 - alf (current) use of insulin; Z79.4 - long term care social worker (current) use of insulin; Z99.2 - Dependence on renal dialysis (4) Anemia Current Visit: No Status: Chronic Monitor hemoglobin. Transfuse as needed. Qualifiers: Anemia type: due to chronic kidney disease Chronic kidney disease stage: on chronic dialysis Qualified Code(s): N18.6 - End stage renal disease; D63.1 - Anemia in chronic kidney disease; D63.1 - Anemia in chronic kidney disease; Z99.2 - Dependence on renal dialysis; Z99.2 - Dependence on renal dialysis; Z99.2 - Dependence on renal dialysis; Z99.2 - Dependence on renal dialysis Subjective Principal diagnosis: ESRD, Bradycardia/hypotension Interval history: The patient was seen. She is resting. She is s/p pacemaker placement. . Objective - Vital Signs Vital signs: Vital Signs Temp Pulse Resp BP Pulse Ox 10/12/17 08:35 81 10/12/17 08:00 99 F 84 16 129/83 95 10/12/17 04:47 97.8 F 91 16 119/63 100 10/12/17 00:01 97.8 F 67 16 119/63 100 10/11/17 20:45 98.8 F 91 16 141/78 93 10/11/17 19:50 98.8 F 72 16 141/78 93 10/11/17 18:30 84 133/81 10/11/17 16:30 79 133/91 10/11/17 16:21 94 10/11/17 16:15 72 137/71 10/11/17 16:00 74 139/67 10/11/17 15:45 74 139/76 10/11/17 15:37 97.9 F 89 18 137/88 97 10/11/17 13:33 97.5 F L 73 18 97 10/11/17 12:50 97.5 F L 18 148/72 10/11/17 12:35 145/68 10/11/17 12:20 147/72 10/11/17 12:05 129/73 10/11/17 12:00 82 10/11/17 11:50 137/64 10/11/17 11:35 129/58 10/11/17 11:20 123/61 10/11/17 11:05 117/72 10/11/17 10:50 127/55 Intake and Output 10/11/17 10/12/17 10/12/17 23:59 07:59 15:59 Intake Total 165 / 165 160 / 160 535 / 535 Balance 165 / 165 160 / 160 535 / 535 Intake: IV Fluids 165 / 165 160 / 160 175 / 175 Heparin 25,000 UNIT/500 ML D5W 165 / 165 60 / 60 175 / 175 25,000 unit In 500 ml @ 14 UNIT /KG/HR 19.488 mls/hr IVC .Q24H ALIYAH Rx#:[id number] Ancef Premix 2,000 MG/100 ML 2, 100 / 100 000 mg In 100 ml @ 200 mls/hr IVPB Q8HR ALIYAH Rx#:[id number] Oral 360 / 360 Other: Meal Breakfast Percent of Meal Consumed 100% Weight 74.6 kg Blood Glucose* 122 118 Patient Weight 10/12/17 23:59 Weight 74.6 kg - General Appearance General appearance: Present: well-developed, well-nourished EENT: Present: ATNC - Lab 10/11/17 04:06 10/11/17 04:06 Most recent lab results Calcium 9.0 mg/dL (8.6-10.3) 10/11/17 04:06 Phosphorus 3.5 mg/dL (2.7-4.5) 10/06/17 04:00 Magnesium 2.5 mg/dL (1.6-2.6) 10/06/17 04:00 Consult Discharge Plan - Plan Referrals: Aurelio Fong DO [Primary Care Provider] - 10/23/17 1:00 pm
--- NOTE | 2017-10-12 14:30 | Cardiology Progress Note ---
Date of Encounter: 10/12/17 Time of Encounter: 14:00 Assessment and Plan (1) Symptomatic bradycardia Current Visit: Yes Status: Acute Per cardiology: -S/p PPM yesterday. -Chest x-rays without evidence of pneumothroax. -Device check normal. -POst device education reviewed with pateint. -Cardiology will sign off and will follow in outpatient setting. Follow up set. . Discussion w patient/family: The assessment and plan as outlined above was discussed with the patient who expressed understanding and agreement. All questions were answered. Thank you for involving us in the care of your patient. Please call with any questions. Discussed and reviewed with Dr.Jennifer Esquivel. ACTIVITY: Moderate activity for the next 7 days. No lifting more than 5 pounds ( gallon of milk) for 4-6 weeks. Avoid lifting your arm on the same side as the device for 4 weeks. BATHING /SHOWERING: Do not remove the large bandage over the site for 2 days. Do not allow the device to get wet for 7-10 days. You may bathe/shower, but do not use soap and water on the site. When bathing, keep the site dry by covering with Saran wrap or a towel. WOUND CARE: The white steri-strips will start to peel away and come off after 14 days, or your doctor will remove them after [address] anything into or on top of the incision. Do not use cotton swabs. Do not use any antibiotic ointment or Vitamin E on the site. REMINDERS: You may use electrical devices, such as, microwaves, hair dryers, electric razors, electric blankets, etc. as long as they are in good condition and kept 6 -8 inches away from the device. It is recommended to use cell phones on the opposite side of your device. Notify security personnel at the airport that you have a device before you go through airport security screening. When at places with security monitors, such as a grocery store, do not linger near these monitors. It is fine to walk past them in a normal manner. Refer to your owners manual for more specific directions. CARRY YOUR PACEMAKER/ICD CARD WITH YOU AT ALL TIMES Return to work as instructed per physician Resume driving as instructed per physician Keep all scheduled follow up appointments Resume medications as instructed Contact [facility] ( ) if: You develop excessive bleeding from insertion or wound site not controlled by applying pressure You develop a fever greater than 101 degrees Fahrenheit Your incision becomes reddened at or around the site Your incision develops yellowish or greenish drainage or development of white pimple-like bumps You experience excessive pain You develop swelling in your ankles You experience muscle switching You develop excessive hiccupping If you experience chest pain, shortness of breath, dizziness, or extreme tiredness, stop the activity and rest. Please notify [facility] office if you experience any of these symptoms and they are not relieved by rest please call 911! Subjective Principal diagnosis: ESRD, Bradycardia/hypotension Interval history: S/p pacemaker yesterday. Objective Vital Signs, Last 4 Hours Temp Pulse Resp BP Pulse Ox 10/12/17 12:19 98.8 F 72 16 121/72 95 General: Conversant, No Apparent Distress, Other (Asleep upon eneterning room, arouses to verbal stimuli. ) HEENT: Atraumatic, Normocephaly, Mucus Membranes Moist Neck: No JVD, Normal carotid pulses Cardiac: Reg Rate and Rhythm, Normal S1 and S2, No Murmur Lungs: Normal Breath Sounds, No Wheeze, Rales, Rhonchi Neuro: Alert and responsive, No focal deficits noted Abdomen: Soft, Non-Tender Skin: No rashes noted on visualized skin, Other (Left chest wall dressing removed. Steri-strips intact. ) Musculoskeletal: No Chest Wall Tenderness Extremities: No Clubbing, No Cyanosis, No Edema, Normal Pulses Results 10/11/17 04:06 10/11/17 04:06 Lab Results Impressions Chest X-Ray 10/11/17 18:07 IMPRESSION: 1. Transvenous pacer in place 2. No pneumothorax 3. Otherwise, stable chest demonstrating pulmonary vascular congestion D/ / Robby Gonzalez MD / Robby Gonzalez MD Interpreting Provider: Robby Gonzalez MD Chest X-Ray 10/12/17 06:00 IMPRESSION: 1. Left pacemaker with leads terminating in the region of the right atrium and right ventricle. 2. Persistent but improving pulmonary vascular congestion. 3. No pneumothorax identified. D/ / Bartolo Roach MD / Bartolo Roach MD Interpreting Provider: Bartolo Roach MD Active Medications Acetaminophen (Tylenol) 650 mg PO Q4HR PRN PRN Reason: Pain Stop: 04/11/18 16:01 Last Admin: 10/11/17 19:36 Dose: 650 mg Calcium Carbonate (Tums) 1,000 mg PO Q4HR PRN; Protocol PRN Reason: Heartburn Stop: 04/07/18 05:11 Last Admin: 10/10/17 14:15 Dose: 1,000 mg Dextrose/Water (Dextrose 50% (Syg)) 25 ml IVP AD PRN PRN Reason: Hypoglycemia Stop: 04/05/18 12:27 Gabapentin (Neurontin) 100 mg PO TID ALIYAH Stop: 04/12/18 11:16 Last Admin: 10/12/17 08:05 Dose: 100 mg Glucagon (Glucagen) 1 mg IM ONCE PRN PRN Reason: Hypoglycemia Stop: 04/05/18 12:27 Glucose (Gluctose) 15 gm PO ONCE PRN PRN Reason: Hypoglycemia Stop: 04/05/18 12:27 Glucose (Gluctose) 30 gm PO ONCE PRN PRN Reason: Hypoglycemia Stop: 04/05/18 12:27 Heparin Sodium (Porcine) (Heparin) 0 unit IV ONCE PRN PRN Reason: SEE COMMENTS Stop: 04/05/18 17:07 Heparin Sodium (Porcine) (Heparin) 2,400 unit 35 unit/kg (2400 unit) IVP Q6H PRN PRN Reason: PROTOCOL Stop: 04/09/18 05:30 Last Admin: 10/10/17 01:24 Dose: 2,400 unit Heparin Sodium (Porcine) (Heparin) 4,900 unit 70 unit/kg (4900 unit) IVP Q6HR PRN PRN Reason: PROTOCOL Stop: 04/09/18 05:30 Last Admin: 10/11/17 05:03 Dose: 4,900 unit Heparin Sodium/Dextrose (Heparin 25,000 Unit/500 Ml D5w) 25,000 unit in 500 mls @ 19.488 mls/hr IVC .Q24H ALIYAH; 14 UNIT/KG/HR PRN Reason: Protocol Stop: 04/08/18 11:01 Last Titration: 10/12/17 12:23 Dose: 18.67 unit/kg/hr, 26 mls/hr Dextrose (Dextrose 5%) 1,000 mls @ 100 mls/hr IVC .Q10H PRN PRN Reason: HYPOGLYCEMIA Stop: 04/05/18 12:27 Sodium Chloride (0.9 % Sodium Chloride) 250 mls @ 937.5 mls/hr IVC .Q16M PRN PRN Reason: Hypotension Stop: 04/12/18 07:40 Last Admin: 10/11/17 20:53 Dose: 937.5 mls/hr Insulin Human Lispro (Humalog) 0 units SQ TIDAC ALIYAH PRN Reason: Protocol Stop: 04/06/18 11:31 Last Admin: 10/12/17 12:11 Dose: 4 units Insulin Human Lispro (Humalog) 0 units SQ HS ALIYAH PRN Reason: Protocol Stop: 04/06/18 21:01 Last Admin: 10/12/17 00:41 Dose: Not Given Naloxone HCl (Narcan) 0.4 mg IVP Q2MIN PRN PRN Reason: SEE COMMENTS Stop: 04/05/18 11:36 Ondansetron HCl (Zofran) 4 mg IVP Q6HR PRN; Protocol PRN Reason: Nausea Stop: 04/05/18 14:23 Last Admin: 10/09/17 02:51 Dose: 4 mg - Imaging and Cardiology Chest Xray: report reviewed Echo: report reviewed Consult Discharge Plan - Plan Referrals: Aurelio Fong DO [Primary Care Provider] - 10/23/17 1:00 pm
[2017-10-12] MEDS ORDERED: Lidocaine -MPF 1% 5 ML AMPUL INFILT ONE (14:55)
[2017-10-13 03:33] LABS: Basophils % 0.5 %; Eosinophils # 0.2 K/mcL (0.0-0.6); Eosinophils % 3.7 %; Hematocrit 26.7 % (35.3-44.9); Hemoglobin 8.3 g/dL (11.5-15.4); Immature Granulocytes % 3.9 % (0-4); Lymphocytes # 1.2 K/mcL (0.6-4.6); Lymphocytes % 19.3 %; Mean Corpuscular HGB Conc 31.1 g/dL (31.6-35.5); Mean Corpuscular Hemoglobin 29.6 pg (28.0-33.3); Mean Corpuscular Volume 95.4 fL (83.0-100.0); Mean Platelet Volume 10.3 fL (9.4-12.4); Monocytes # 0.7 K/mcL (0.0-1.3); Monocytes % 12.2 %; Neutrophils # 3.6 K/mcL (1.6-8.9); Platelet Count 180 K/mcL (140-400); Red Cell Distribution Width 18.4 % (11.5-14.5); Segmented Neutrophils % 60.4 %
[2017-10-13 03:45] LABS: Calcium 9.2 mg/dL (8.6-10.3); Potassium 3.9 mEq/L (3.5-5.1)
[2017-10-13] MEDS: Gabapentin 100 MG CAPSULE PO SCH ×3 (07:56→20:01)
[2017-10-13] MEDS: Insulin LISPRO 300 UNITS/3 ML VIAL SQ SCH ×4 (07:57→21:53)
[2017-10-13] MEDS: Heparin 25,000 UNIT/500 ML D5W 25,000 UNIT/500 ML BAG IVC SCH (09:57)
--- NOTE | 2017-10-13 09:57 | Nephrology Progress Note ---
Date of Encounter: 10/13/17 Time of Encounter: 09:57 - Assessment and Plan (1) ESRD (end stage renal disease) Current Visit: Yes Status: Chronic HD MWF. Renal vitamins. Renal dose medications. Renal diet. Additional dialysis and ultrafiltration as needed. (2) Symptomatic bradycardia Current Visit: Yes Status: Acute Management per cardiology. s/p pacemaker placement . (3) Diabetes Current Visit: Yes Status: Chronic Per primary team. 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 use: with termite treater helper use Diabetes mellitus complication status: with kidney complications Diabetes mellitus complication detail: with chronic kidney disease Chronic kidney disease stage: on chronic dialysis Qualified Code(s) : E11.22 - Type 2 diabetes mellitus with diabetic chronic kidney disease; N18.6 - End stage renal disease; N18.6 - End stage renal disease; N18.6 - End stage renal disease; N18.6 - End stage renal disease; Z79.4 - intermodal dispatcher (current) use of insulin; Z79.4 - intermodal dispatcher (current) use of insulin; Z79.4 - [facility] ( current) use of insulin; Z79.4 - intermodal dispatcher (current) use of insulin; Z99.2 - Dependence on renal dialysis; Z99.2 - Dependence on renal dialysis; Z99.2 - Dependence on renal dialysis; Z99.2 - Dependence on renal dialysis (4) Anemia Current Visit: No Status: Chronic Monitor hemoglobin. Transfuse as needed. Qualifiers: Anemia type: due to chronic kidney disease Chronic kidney disease stage: on chronic dialysis Qualified Code(s): N18.6 - End stage renal disease; D63.1 - Anemia in chronic kidney disease; D63.1 - Anemia in chronic kidney disease; Z99.2 - Dependence on renal dialysis; Z99.2 - Dependence on renal dialysis; Z99.2 - Dependence on renal dialysis; Z99.2 - Dependence on renal dialysis Subjective Principal diagnosis: ESRD, Bradycardia/hypotension Interval history: The patient was seen. She is resting. She is s/p pacemaker placement. . Objective - Vital Signs Vital signs: Vital Signs Temp Pulse Resp BP Pulse Ox 10/13/17 07:58 98.3 F 88 18 133/74 98 10/13/17 04:38 98 F 71 16 120/66 100 10/13/17 00:27 98 F 68 16 120/66 100 10/13/17 00:20 98 F 70 16 120/66 100 10/12/17 21:26 99.5 F 83 22 121/70 98 10/12/17 21:00 98 F 70 16 120/66 100 10/12/17 15:43 99.5 F 70 18 106/71 96 10/12/17 12:19 98.8 F 72 16 121/72 95 Intake and Output 10/12/17 10/13/17 10/13/17 23:59 07:59 15:59 Intake Total 50 / 50 Balance 50 / 50 Intake: Oral 50 / 50 Other: Meal Breakfast Percent of Meal Consumed 100% Blood Glucose* 174 117 - General Appearance General appearance: Present: well-developed, well-nourished Cardiology: Present: regular rate - Lab 10/13/17 03:14 10/13/17 03:14 Most recent lab results Calcium 9.2 mg/dL (8.6-10.3) 10/13/17 03:14 Phosphorus 3.5 mg/dL (2.7-4.5) 10/06/17 04:00 Magnesium 1.9 mg/dL (1.6-2.6) 10/13/17 03:14 Consult Discharge Plan - Plan Referrals: Aurelio Fong DO [Primary Care Provider] - 10/23/17 1:00 pm
--- NOTE | 2017-10-13 11:00 | Internal Med Progress Note ---
Date of Encounter: 10/13/17 Time of Encounter: 11:00 - Assessment and plan (1) Symptomatic bradycardia Current Visit: Yes Status: Acute Assessment and plan: Patient is s/p pacemaker placement. Tolerated procedure well with no complications. Post procedure cxr showed no pneumothorax. Pt is clear for discharge. Awaiting placement in rehab (2) ESRD (end stage renal disease) Current Visit: Yes Status: Chronic Assessment and plan: Patient currently receiving CVVHD. Nephrology following. Continue regular dialysis per renal. (3) History of CVA (cerebrovascular accident) Current Visit: No Status: Chronic Assessment and plan: No active problem. Is stable. Plavix was recently stopped as xarelto was started recently (4) Diabetes Current Visit: Yes Status: Chronic Assessment and plan: Blood sugars are fairly controlled. Will place patient on diabetic diet and change sliding scale to ACHS Qualifiers: Diabetes mellitus type: type 2 Diabetes mellitus intermediate insulin use: with intermediate use Diabetes mellitus complication status: with kidney complications Diabetes mellitus complication detail: with chronic kidney disease Chronic kidney disease stage: on chronic dialysis Qualified Code(s) : E11.22 - Type 2 diabetes mellitus with diabetic chronic kidney disease; N18.6 - End stage renal disease; Z99.2 - Dependence on renal dialysis; Z99.2 - Dependence on renal dialysis; Z99.2 - Dependence on renal dialysis; N18.6 - End stage renal disease; N18.6 - End stage renal disease; N18.6 - End stage renal disease; Z79.4 - senior living (current) use of insulin; Z79.4 - senior living (current ) use of insulin; Z79.4 - senior living (current) use of insulin; Z79.4 - intermodal customer service (current) use of insulin; Z99.2 - Dependence on renal dialysis (5) DVT (deep venous thrombosis) Current Visit: Yes Status: Acute Assessment and plan: Continue Xarelto Qualifiers: DVT location: upper extremity Affected thrombotic vein of extremity: unspecified vein of extremity Chronicity: acute Laterality: left Qualified Code(s): I82.622 - Acute embolism and thrombosis of deep veins of left upper extremity (6) Acute respiratory failure with hypoxia Current Visit: Yes Status: Acute Assessment and plan: Likley 2/2 to ESRD and diastolic CHF. Resolved with dialysis . Currently saturating WNL on room air - Time Spent With Patient Total time spent is greater than 50% in coordination of care (as documented) at patient's floor/unit and/or counseling patient: - Subjective Interval history: No acute events overnight - Constitutional Vitals: Temp Pulse Resp BP Pulse Ox 98.3 F 88 18 133/74 98 10/13/17 07:58 10/13/17 07:58 10/13/17 07:58 10/13/17 07:58 10/13/17 07:58 General appearance: Present: cooperative, mild distress, A&O X 3, obese, answers questions appropriately - Head Head exam: Present: atraumatic, normocephalic - Eye Eye exam: Present: PERRL, conjuntiva pink, sclera anicteric Pupils: Present: PERRL - Neck Neck exam general surgery: Present: supple, trachea midline. Absent: lymphadenopathy - Respiratory Respiratory exam: Present: CTAB. Absent: accessory muscle use, rales, rhonchi, wheezes - Cardiovascular Cardiovascular exam: Present: RRR, +S1, +S2. Absent: diastolic murmur, gallop, rubs, systolic murmur - GI/Abdominal GI/Abdominal exam: Present: normal bowel sounds, soft, no peritoneal signs. Absent: distended, tenderness - Extremities Exam Extremities exam: Present: warm, radial pulses palpable and symmetrical. Absent : calf tenderness, cyanotic, pedal edema - Neurological Exam Neurological exam: Present: CN II-XII intact, oriented X3, no focal deficits. Absent: pronater drift, facial droop, speech deficit - Skin Skin exam: Present: dry, intact Internal Medicine: Result - Labs CBC & Chem 7: 10/13/17 03:14 10/13/17 03:14 Labs: Short CBC 10/13/17 Range/Units 03:14 WBC 6.0 (4.3-11.1) K/mcL Hgb 8.3 L (11.5-15.4) g/dL Hct 26.7 L (35.3-44.9) % Plt Count 180 (140-400) K/mcL Neutrophils # 3.6 (1.6-8.9) K/mcL BMP 10/13/17 03:14 Sodium 135 L Potassium 3.9 Chloride 98 Carbon Dioxide 27 BUN 35 H Creatinine 6.57 H Glucose 129 H Calcium 9.2 - ABG Interpretation ABG results: PT/INR, D-dimer PT 12.3 Seconds (9.4-12.1) H 10/10/17 00:38 - Impressions Impressions Extremity Venous Study 10/11/17 00:00 IMPRESSION: Left upper extremity venography demonstrated normal central veins as well as SVC. Dr. Esquivel from cardiology was informed of the findings. D/ /12/2017 16:05:06 Stacy Wyatt MD / cheryl Interpreting Provider: Stacy Wyatt MD Vena Cavagram, [place] 10/11/17 00:00 IMPRESSION: Left upper extremity venography demonstrated normal central veins as well as SVC. Dr. Esquivel from cardiology was informed of the findings. D/ /12/2017 16:05:06 Stacy Wyatt MD / cheryl Interpreting Provider: Stacy Wyatt MD Chest X-Ray 10/12/17 06:00 IMPRESSION: 1. Left pacemaker with leads terminating in the region of the right atrium and right ventricle. 2. Persistent but improving pulmonary vascular congestion. 3. No pneumothorax identified. D/ / Bartolo Roach MD / Bartolo Roach MD Interpreting Provider: Bartolo Roach MD Chest X-Ray 10/13/17 00:20 IMPRESSION: Findings suggestive of cardiomegaly and mild pulmonary venous congestion. No appreciable change. D/ 10/13/2017 07:38:26 Dread Ledbetter MD / le Interpreting Provider: Dread Ledbetter MD Consult Discharge Plan - Plan Referrals: Aurelio Fong DO [Primary Care Provider] - 10/23/17 1:00 pm
[2017-10-14 04:45] LABS: Basophils % 0.4 %; Eosinophils # 0.2 K/mcL (0.0-0.6); Eosinophils % 2.8 %; Hematocrit 25.7 % (35.3-44.9); Hemoglobin 8.1 g/dL (11.5-15.4); Immature Granulocytes % 1.9 % (0-4); Lymphocytes # 1.3 K/mcL (0.6-4.6); Lymphocytes % 18.3 %; Mean Corpuscular HGB Conc 31.5 g/dL (31.6-35.5); Mean Corpuscular Hemoglobin 29.6 pg (28.0-33.3); Mean Corpuscular Volume 93.8 fL (83.0-100.0); Mean Platelet Volume 10.6 fL (9.4-12.4); Neutrophils # 4.5 K/mcL (1.6-8.9); Platelet Count 170 K/mcL (140-400); Red Blood Count 2.74 M/mcL (3.82-4.97); Red Cell Distribution Width 18.2 % (11.5-14.5); Segmented Neutrophils % 62.6 %
[2017-10-14 05:28] LABS: Calcium 9.3 mg/dL (8.6-10.3); Potassium 4.6 mEq/L (3.5-5.1)
[2017-10-14] MEDS: Heparin 25,000 UNIT/500 ML D5W 25,000 UNIT/500 ML BAG IVC SCH (06:09)
[2017-10-14] MEDS ORDERED: 0.9 % Sodium Chloride 1,000 ML ONE (07:03)
[2017-10-14] MEDS ORDERED: *HR* Heparin 10,000 UNIT/10 ML VIAL IV PRN (07:43)
[2017-10-14] MEDS ORDERED: 0.9 % Sodium Chloride 250 ML IVC PRN (07:43)
--- NOTE | 2017-10-14 09:42 | Discharge Summary ---
- NOTES TO OUTPATIENT PROVIDER Notes to Outpatient Provider: Follow up with cardiology Orders not resulted at time of discharge: Pending orders 10/11/17 15:38 CL Insert Permanent Pacemaker [CL] Routine 10/14/17 13:00 PTT [Activated Partial Thrombo Time] [COAG] Timed 10/15/17 04:00 Basic Metabolic Panel AM 0400 CBC [Complete Blood Count] [HEME] AM 0400 10/16/17 04:00 Basic Metabolic Panel AM 0400 CBC [Complete Blood Count] [HEME] AM 0400 10/17/17 04:00 Basic Metabolic Panel AM 0400 CBC [Complete Blood Count] [HEME] AM 0400 10/18/17 04:00 Basic Metabolic Panel AM 0400 CBC [Complete Blood Count] [HEME] AM 0400 Date of Encounter: 10/14/17 Time of Encounter: 09:30 - Discharge Diagnosis (1) Symptomatic bradycardia Priority: Primary Status: Acute Assessment and Plan: Came in for symptomatic bradycardia. Patient is s/p pacemaker placement. Tolerated procedure well with no complications. Post procedure cxr showed no pneumothorax. Pt is clear for discharge. D/C to rehab today (2) ESRD (end stage renal disease) Priority: Secondary Status: Chronic Assessment and Plan: Patient currently receiving CVVHD. Nephrology following. Continue regular dialysis per renal. (3) History of CVA (cerebrovascular accident) Priority: Secondary Status: Chronic Assessment and Plan: No active problem. Is stable. Plavix was recently stopped as xarelto was started recently. Will d/c xarelto and start eliquis 2/2 to kidney function (4) Diabetes Priority: Secondary Status: Chronic Assessment and Plan: Blood sugars are fairly controlled. 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 use Diabetes mellitus complication status: with kidney complications Diabetes mellitus complication detail: with chronic kidney disease Chronic kidney disease stage: on chronic dialysis Qualified Code(s) : E11.22 - Type 2 diabetes mellitus with diabetic chronic kidney disease; N18.6 - End stage renal disease; Z99.2 - Dependence on renal dialysis; Z99.2 - Dependence on renal dialysis; Z99.2 - Dependence on renal dialysis; N18.6 - End stage renal disease; N18.6 - End stage renal disease; N18.6 - End stage renal disease; Z79.4 - remote computer terminal operator (current) use of insulin; Z79.4 - remote computer terminal operator (current ) use of insulin; Z79.4 - remote computer terminal operator (current) use of insulin; Z79.4 - remote computer terminal operator (current) use of insulin; Z99.2 - Dependence on renal dialysis (5) DVT (deep venous thrombosis) Priority: Secondary Status: Acute Assessment and Plan: D/C xarelto and start eliquis on discharge Qualifiers: DVT location: upper extremity Affected thrombotic vein of extremity: unspecified vein of extremity Chronicity: acute Laterality: left Qualified Code(s): I82.622 - Acute embolism and thrombosis of deep veins of left upper extremity (6) Acute respiratory failure with hypoxia Priority: Secondary Status: Acute Assessment and Plan: Likley 2/2 to ESRD and diastolic CHF. Resolved with dialysis . Currently saturating WNL on room air Hospital course: Ms. Aguilar is a 71 year old female - Time Spent with Patient Total time spent providing and/or coordinating discharge services: - Discharge Medications Prescriptions: Apixaban [Eliquis] 5 mg PO BID #60 tablet Home Medications: Apixaban [Eliquis] 5 mg PO BID #60 tablet 10/14/17 [Rx] Allergies/Adverse Reactions: 3 Allergy/AdvReac Type Severity Reaction Status Date / Time adhesive Allergy Rash Verified 10/04/17 08:42 Beta-Blockers Allergy Hallucinati Verified 10/04/17 08:42 (Beta-Adrenergic Bloc ng metoprolol [From Toprol XL] Allergy Hallucinati Verified 10/04/17 08:42 ng lisinopril AdvReac Intermediate Hallucinati Verified 10/04/17 08:42 ng acetaminophen [From Percocet] AdvReac Nausea Verified 10/04/17 08:42 Oxycodone [From Percocet] AdvReac Nausea Verified 10/04/17 08:42 tramadol AdvReac Vomiting Verified 10/04/17 08:42 Date of admission: 10/04/17 14:41 Primary care physician: Aurelio Fong DO Consults: 10/05/17 08:55 Consult to Pulmonology [CONS] Routine Consulting Provider: Pulm [facility] [place] Reason for Consult: ICU management/ bradycardia, ESRD Time Notified: 08:56 Call Completed: Yes 10/09/17 08:30 Consult to Dialysis [CONS] ONCE 10/09/17 09:05 Consult to Electrophysiology (EP) [CONS] Routine Consulting Provider: Electrophysiology [place] Reason for Consult: Pacemaker placement Call Completed: No Consult to Nephrology [CONS] Routine Consulting Provider: Kidney Shell/JULIA/SUMIT/SKYLER Reason for Consult: End-stage renal disease Call Completed: Yes 10/10/17 13:23 Consult to Interventional Radiology [CONS] Routine Consulting Provider: Radiology Interventional [place] Reason for Consult: Discussed with IR-- agreed to consult to evaluate and document IR recs Call Completed: Yes 10/11/17 07:45 Consult to Dialysis [CONS] ONCE 10/11/17 09:43 Consult to Vascular Surgery [CONS] Routine Consulting Provider: Vascular Surgery [place] Reason for Consult: eval/recs regarding access for pacer Call Completed: Yes 10/12/17 08:44 Consult to Occupational Therapy [CONS] Routine Comment: Evaluate, develop and implement POC Reason for Consult: weakness Does patient have active BEDREST order?: No Is patient medically & hemodynamically stable?: Yes Patient assessed for mobility or mobilized this visit?: No Consult to Physical Therapy [CONS] Routine Comment: Evaluate, develop and implement POC Reason for Consult: weakness Does patient have active BEDREST order?: No Is patient medically & hemodynamically stable?: Yes Patient assessed for mobility or mobilized this visit?: Yes 10/14/17 07:45 Consult to Dialysis [CONS] ONCE - Constitutional Vitals: Temp Pulse Resp BP Pulse Ox 98.9 F 78 17 110/73 97 10/14/17 04:09 10/14/17 04:09 10/14/17 04:09 10/14/17 04:09 10/14/17 04:09 General appearance: Present: cooperative, mild distress, A&O X 3, obese, answers questions appropriately - Patient Status Disposition: Home, Self-Care Condition: Good - Discharge Instructions Follow Up With: Aurelio Fong DO [Primary Care Provider] - (PATIENT IS GOING TO ECF , NO PCP APPOINTMENT NEEDED)
--- NOTE | 2017-10-14 09:45 | Nephrology Progress Note ---
Date of Encounter: 10/14/17 Time of Encounter: 09:42 - Assessment and Plan (1) ESRD (end stage renal disease) on dialysis Current Visit: Yes Status: Acute HD in progress. Avoid Nephrotoxins. Renal vitamins. (2) CHF (congestive heart failure) Current Visit: Yes Status: Acute Per primary team. Qualifiers: Heart failure type: unspecified Heart failure chronicity: unspecified Qualified Code(s): I50.9 - Heart failure, unspecified (3) Anemia Current Visit: No Status: Chronic Hgb 8.3, transfuse if needed. Qualifiers: Anemia type: due to chronic kidney disease Chronic kidney disease stage: on chronic dialysis Qualified Code(s): N18.6 - End stage renal disease; D63.1 - Anemia in chronic kidney disease; D63.1 - Anemia in chronic kidney disease; Z99.2 - Dependence on renal dialysis; Z99.2 - Dependence on renal dialysis; Z99.2 - Dependence on renal dialysis; Z99.2 - Dependence on renal dialysis Subjective Principal diagnosis: ESRD, Bradycardia/hypotension Interval history: Pt seen and examined in HD today. UF was stopped for a short time by HD nurse for Hypotension. Objective - Vital Signs Vital signs: Vital Signs Temp Pulse Resp BP Pulse Ox 10/14/17 04:09 98.9 F 78 17 110/73 97 10/14/17 00:33 98.9 F 72 17 110/73 97 10/14/17 00:14 98.5 F 67 18 126/71 95 10/13/17 21:10 98.7 F 89 18 124/84 96 10/13/17 18:05 98.7 F 89 18 124/84 96 10/13/17 14:31 97.9 F 94 16 101/62 97 10/13/17 12:18 99.2 F 94 16 122/78 94 10/13/17 10:53 71 Intake and Output 10/13/17 10/14/17 10/14/17 23:59 07:59 15:59 Intake Total 200 / 200 380 / 380 Balance 200 / 200 380 / 380 Intake: IV Fluids 380 / 380 Heparin 25,000 UNIT/500 ML D5W 380 / 380 25,000 unit In 500 ml @ 14 UNIT /KG/HR 20.888 mls/hr IVC . [id number] ALIYAH Rx#:[id number] Oral 200 / 200 Other: Meal Dinner Percent of Meal Consumed 80% Weight 74.3 kg Blood Glucose* 193 126 Patient Weight 10/14/17 23:59 Weight 74.3 kg - General Appearance General appearance: Present: chronically ill, frail EENT: Present: ATNC, hearing intact, vision intact Neck: Present: supple Respiratory: Present: clear Cardiology: Present: edema, normal S1, normal S2 Dialysis Vascular Access: Venous Catheter Additional Comments: Right Permacath. Drsg C/D/I. Gastrointestinal: Present: normoactive bowel sounds, no tenderness, no guarding Integumentary: Present: warm and dry Neurologic: Present: alert and oriented x3 Psychiatric: Present: mood/affect appropriate - Lab 10/14/17 04:15 10/14/17 04:15 Most recent lab results Calcium 9.3 mg/dL (8.6-10.3) 10/14/17 04:15 Phosphorus 3.5 mg/dL (2.7-4.5) 10/06/17 04:00 Magnesium 1.9 mg/dL (1.6-2.6) 10/13/17 03:14 Consult Discharge Plan - Plan Referrals: Aurelio Fong DO [Primary Care Provider] - (PATIENT IS GOING TO F , NO PCP APPOINTMENT NEEDED) Prescriptions: Apixaban [Eliquis] 5 mg PO BID #60 tablet
[2017-10-14] MEDS: Gabapentin 100 MG CAPSULE PO SCH ×2 (10:00→15:10)
[2017-10-14] MEDS: Insulin LISPRO 300 UNITS/3 ML VIAL SQ SCH ×2 (10:00→12:59)
[2017-10-14] MEDS: Acetaminophen 325 MG TABLET PO PRN (11:44)
[2017-10-14 11:47] VITALS: BP 132/75
[2017-10-14] MEDS ORDERED: Apixaban 5 MG TABLET PO ONE (12:00)
[2017-10-14 13:46] LABS: Activated Partial Thrombo Time 123.7 Seconds (26.0-36.0)
[2017-10-14 13:52] LABS: Heparin anti-factor XA UFH 0.85 IU/mL (0.30-0.70)
--- NOTE | 2017-10-14 14:56 | Physician Discharge Referral ---
Home Health/Hosp Referral Info Transfer to: Home Health - Diagnosis (1) Symptomatic bradycardia Status: Acute (2) ESRD (end stage renal disease) Status: Chronic (3) History of CVA (cerebrovascular accident) Status: Chronic (4) Diabetes Status: Chronic (5) DVT (deep venous thrombosis) Status: Acute (6) Acute respiratory failure with hypoxia Status: Acute - Respiratory Orders Smoking Cessation: Smoking cessation has been advised. For more information, call the [place] Tobacco Quit Line at 6-995-KNBO-NOW. - Diet/Nutrition Diet/Nutrition Orders: Cardiac - Activity Activity Orders: Ambulate - Services Needed Following services are medically necessary services: Nursing, Home Health Aide, Physical Therapy - Transfer Medications Prescriptions: Apixaban [Eliquis] 5 mg PO BID #60 tablet Home Medications: Apixaban [Eliquis] 5 mg PO BID #60 tablet 10/14/17 [Rx] Allergies/Adverse Reactions: 3 Allergy/AdvReac Type Severity Reaction Status Date / Time adhesive Allergy Rash Verified 10/04/17 08:42 Beta-Blockers Allergy Hallucinati Verified 10/04/17 08:42 (Beta-Adrenergic Bloc ng metoprolol [From Toprol XL] Allergy Hallucinati Verified 10/04/17 08:42 ng lisinopril AdvReac Intermediate Hallucinati Verified 10/04/17 08:42 ng acetaminophen [From Percocet] AdvReac Nausea Verified 10/04/17 08:42 Oxycodone [From Percocet] AdvReac Nausea Verified 10/04/17 08:42 tramadol AdvReac Vomiting Verified 10/04/17 08:42 Certification: Further, I certify that my clinical findings support that this patient is homebound (i.e. absences from home require considerable and taxing effort and are for medical reasons or adventist services or infrequently or short duration when for other reasons) because: Homebound Reason: Patient requires assistance of a person or device to safely leave home Attestation: My signature below is to certify that this patient is under my care and that I, or nurse practitioner, or a physician's assistant professor of psychology working with me, has a face-to -face encounter with this patient.
--- NOTE | 2017-10-14 15:15 | Physician Discharge Referral ---
- Diagnosis (1) Symptomatic bradycardia Priority: Primary Status: Acute (2) ESRD (end stage renal disease) Status: Chronic (3) History of CVA (cerebrovascular accident) Status: Chronic (4) Diabetes Status: Chronic (5) DVT (deep venous thrombosis) Status: Acute (6) Acute respiratory failure with hypoxia Status: Acute Prognosis: Good - Transfer Medications Prescriptions: Apixaban [Eliquis] 5 mg PO BID #60 tablet Home Medications: Apixaban [Eliquis] 5 mg PO BID #60 tablet 10/14/17 [Rx] Allergies/Adverse Reactions: 3 Allergy/AdvReac Type Severity Reaction Status Date / Time adhesive Allergy Rash Verified 10/04/17 08:42 Beta-Blockers Allergy Hallucinati Verified 10/04/17 08:42 (Beta-Adrenergic Bloc ng metoprolol [From Toprol XL] Allergy Hallucinati Verified 10/04/17 08:42 ng lisinopril AdvReac Intermediate Hallucinati Verified 10/04/17 08:42 ng acetaminophen [From Percocet] AdvReac Nausea Verified 10/04/17 08:42 Oxycodone [From Percocet] AdvReac Nausea Verified 10/04/17 08:42 tramadol AdvReac Vomiting Verified 10/04/17 08:42 - Respiratory Orders None Smoking Cessation: Smoking cessation has been advised. For more information, call the [place] Tobacco Quit Line at 0-753-QIXLNOW. - Advance Directives Code Status: DNR-Arrest/Don't Intubate - Mobility Orders Ambulate - Rehabiliation Orders Rehab Potential: Good Rehab Orders: Evaluation for Physical Therapy Other: Physical therapy, nursing services - Diet Orders Cardiac CERTIFICATION: I certify that the transfer of the above named patient to an Extended Care Facility is necessary for the continuing treatment of the diagnosis listed. The above information is true and accurate reflection of patient's current condition. Confidential - Redisclosure prohibited without a patient's written consent.
[2017-10-14] MEDS ORDERED: Apixaban 5 MG TABLET PO SCH (21:00)
--- NOTE | 2017-10-15 15:47 | Electrocardiograph Report ---
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
--- NOTE | 2017-10-15 15:50 | Electrocardiograph Report ---
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
== END 2017-10-14 18:35 | disposition home or self-care (01) | DRG 242 ==
LOC: 2ANU 07:25 → EMEROO 07:25 → 2NENU 11:30 → SUATTDRO 14:41 → ICNU 20:10 → 2NNU 10-09 18:32
PROVIDERS: ADMIT Family Medicine; ATTEND Student in an Organized Health Care Education/Training Program
PROC: IRANGIO (2017-10-11 14:00)